=== PATIENT | female | born 1930 | race Caucasian/White ===

== ENCOUNTER 2016-12-12 18:35 | Inpatient (IN) | payer MEDICARE, OTHER ==
[2016-12-12 19:09] LABS: Bilirubin Negative (Negative); Blood, Urine Negative (Negative); Glucose, Urine (Dipstick) Negative (Negative); Ketone, Urine Negative (Negative); Nitrite Negative (Negative); Protein, Urine (Dipstick) Trace mg/dL (Neg-Trace)
[2016-12-12 19:12] LABS: Bacteria/HPF None Seen HPF (None Seen); Hyaline Casts/LPF 0-3 HYALINE CAST LPF (0-3 Hyaline); Squamous Epithelial None Seen HPF (0-3)
[2016-12-12 20:31] LABS: #Basophils 0.1 thou/uL (0.0-0.2); #Eosinphils 0.2 thou/uL (0.0-0.7); #Lymphocytes 1.9 thou/uL (1.20-3.40); #Monocytes 0.8 thou/uL (0.11-0.59); #Neutrophils 10.6 thou/uL (1.40-6.50); %Basophils 0.6 % (0.0-1.0); %Eosinophils 1.2 % (0.0-10.0); %Monocytes 5.6 % (0.0-10.0); Hematocrit 37.4 % (36.0-47.0); Mean Platelet Volume 8.2 fL (7.4-10.4); Red Blood Cell (RBC) Count 3.74 mill/uL (4.20-5.40); White Blood Cell (WBC) Count 13.5 thou/uL (4.8-10.8)
[2016-12-12] MEDS ORDERED: Azithromycin 500 MG VIAL ONE (20:39)
[2016-12-12] MEDS ORDERED: cefTRIAXone\\ROCEPHIN 1 GM VIAL ONE (20:39)
[2016-12-12] MEDS ORDERED: Sodium Chloride 0.9% 0 ML ONE (20:39)
[2016-12-12 20:47] LABS: Lactic Acid - Sepsis 1.2 mmol/L (0.5-2.2)
[2016-12-12 20:50] LABS: CK (CPK) 76 U/L (29-168); Lipase 11 U/L (8-78)
[2016-12-12 20:51] LABS: ALT (SGPT) 43 U/L (8-55); AST (SGOT) 29 U/L (5-34); Alkaline Phosphatase 113 U/L (40-150); Anion Gap 17 mmol/L (10-20); BUN (Urea Nitrogen) 12 mg/dL (9.8-20.1); Bilirubin, Total 0.5 mg/dL (0.2-1.2); Calc. Creatinine Clearance 0 mL/min (70-130); Calcium 9.5 mg/dL (7.8-10.44); Carbon Dioxide 22 mmol/L (23-31); Chloride 98 mmol/L (98-107); Estimated GFR-MDRD 70; Globulin 2.9 g/dL (2.4-3.5); Protein, Total 6.9 g/dL (6.0-8.3)
[2016-12-12 20:55] LABS: Troponin I Less than 0.010 ng/mL (< 0.028)
--- NOTE | 2016-12-12 21:56 | RAD ---
SEMIUPRIGHT PORTABLE CHEST ONE VIEW: 12/12/16 HISTORY: 86-year-old female with low grade fever for three to five days. Patient had oral surgery one week ag o. COMPARISON: 03/29/15. FINDINGS: Postoperative changes overlying the right hilar region. Right hemidiaphragm elevation. Multiple heal ed right rib fractures with some resultant deformity. Some right apical pleural thickening. Scattere d chronic lung changes appear stable. No confluent pneumonia, overt edema or pleural effusion. IMPRESSION: Stable chronic changes with postoperative changes in the right chest and right hemidiaphragm elevati on. No new process. POS: [facility]
[2016-12-13 00:10] VITALS: BMI 30.6
[2016-12-13] MEDS ORDERED: Acetaminophen 325 MG TAB PO PRN ×2 (00:49→06:38)
[2016-12-13] MEDS ORDERED: Ondansetron HCl/PF 4 MG/2 ML Vial IVP PRN ×2 (00:49→06:38)
[2016-12-13] MEDS ORDERED: Ondansetron ODT 4 MG TAB SL PRN (00:49)
[2016-12-13] MEDS ORDERED: HYDROcodone/Acetaminophen 5/325 mg Tablet PO PRN ×2 (00:49)
[2016-12-13] MEDS ORDERED: Ondansetron ODT 4 MG TAB PO PRN (06:38)
[2016-12-13] MEDS ORDERED: Benzonatate 100 MG CAP PO PRN (06:38)
[2016-12-13] MEDS ORDERED: Chloraseptic Spray 180 ml Bottle PO PRN (06:38)
[2016-12-13] MEDS ORDERED: Zolpidem Tartrate 5 MG TAB PO PRN (06:38)
[2016-12-13] MEDS ORDERED: Diabetic Tussin 200 MG/10 ML UDCUP PO PRN (06:38)
[2016-12-13] MEDS ORDERED: Mag-Al 1200 mg/1200 mg/30 ML UDCUP PO PRN (06:38)
[2016-12-13] MEDS ORDERED: Loperamide HCl 2 MG CAP PO PRN (06:38)
[2016-12-13] MEDS ORDERED: Senokot 8.6 MG TAB PO PRN (06:38)
[2016-12-13] MEDS ORDERED: Loratadine 10 MG TAB PO PRN (06:38)
[2016-12-13] MEDS ORDERED: Eucerin (Mineral Oil/Petrolatum,White) 30 gm Jar TOP PRN (06:38)
[2016-12-13] MEDS ORDERED: Sodium Chloride 0.65% Nasal 44 ML BOT EA NARE PRN (06:38)
[2016-12-13] MEDS ORDERED: Artificial Tears 18 DROP/0.9 ML EA EYE PRN (06:38)
[2016-12-13] MEDS: Losartan Potassium 25 MG TAB PO SCH (08:45)
[2016-12-13] MEDS: Cyanocobalamin (Vitamin B-12) 1,000 MCG TAB PO SCH (08:45)
[2016-12-13] MEDS: Enoxaparin Sodium 40 MG/0.4 ML SYRINGE SC SCH (08:46)
[2016-12-13] MEDS: Saccharomyces boulardii 250 MG CAP PO SCH (08:46)
[2016-12-13] MEDS: Levothyroxine Sodium 125 MCG TAB PO SCH (08:46)
[2016-12-13] MEDS ORDERED: Famotidine 20 MG TAB PO SCH (09:00)
[2016-12-13] MEDS ORDERED: [UNRECOGNIZED DRUG - OTHER] PO SCH (09:00)
[2016-12-13] MEDS ORDERED: AZILSARTAN MEDOXOMIL 80 MG PO SCH (09:00)
[2016-12-13] MEDS ORDERED: Non-Formulary Item 1 EACH (Cyanocobalamin (Vitamin B-12) [Vitamin B-12] 2,000 MCG) PO SCH (09:00)
[2016-12-13] MEDS ORDERED: Non-Formulary Item 1 EACH (Cholecalciferol (Vitamin D3) [Vitamin D] 2,000 UNIT) PO SCH (09:00)
--- NOTE | 2016-12-13 12:02 | HP ---
PRIMARY CARE PHYSICIAN: Dr. Estrada. REASON FOR ADMISSION: Acute bronchitis. HISTORY OF PRESENT ILLNESS: An 86-year-old female with a past medical history of hypertension, franc[place] nary artery disease, hypothyroidism and gastroesophageal reflux disease, who came to the emergency r o for evaluation of generalized weakness and fever. Patient reports that on Saturday, she was feeling exhausted. She was not feeling to get out of bed be cause of generalized weakness. She was also having low-grade fever. She was also having intermitte nt cough productive of sputum. The patient had oral surgery about 1 week ago. Patient denies any t ooth pain. She denies any night sweats. She denies any urinary tract infection symptoms. She vera es any constipation or diarrhea. The other main complaint was poor appetite. With these symptoms, she presented to emergency room. She was having low-grade fever. Her routine blood test showed leukocytosis. Her chest x-ray was unremarkable. In the emergency room, patient w as given Rocephin, azithromycin and IV fluid and subsequently she was admitted to medical floor for further evaluation and treatment. REVIEW OF SYSTEMS: Please see my HPI for pertinent positives and negatives. All other review of sy stems reviewed and negative except as mentioned in the HPI. Constitutional: Weight loss or gain, ability to conduct usual activities. Skin: Rash, itching. Eyes: Double vision, pain. ENT/Mouth: Nose bleeding, neck stiffness, pain, tenderness. Cardiovascular: Palpitations, dyspnea on exertion, orthopnea. Respiratory: Shortness of breath, wheezing, cough, hemoptysis, fever or night sweats. Gastrointestinal: Poor appetite, abdominal pain, heartburn, nausea, vomiting, constipation, or diar [place]. Genitourinary: Urgency, frequency, dysuria, nocturia. Musculoskeletal: Pain, swelling. Neurologic/Psychiatric: Anxiety, depression. Allergy/Immunologic: Skin rash, bleeding tendency. EMERGENCY ROOM COURSE: Patient is given Rocephin, azithromycin and IV fluid. PAST MEDICAL HISTORY: Chronic lumbar stenosis; required lumbar laminectomy in 2016, hypertension, c oronary artery disease, hypothyroidism, gastroesophageal reflux disease and history of lung cancer. PAST SURGICAL HISTORY: Bilateral knee surgery, hammertoe surgery, right carpal tunnel release. The patient required decompressive laminectomy, facetectomy, foraminectomy and microdiscectomy by Dr. Mesfin lam in 2016. Partial right lung resection, cardiac catheterization with stent placement, a bismark nt placement in kidney, appendicectomy, cholecystectomy, tonsillectomy and hysterectomy. PAST PSYCHIATRIC HISTORY: Reviewed and negative. FAMILY HISTORY: Patient's mother by the age of 75 from coronary artery disease and Parkinson d isease. Father by the age of 70 from COPD and prostate cancer. One sister from lung canc er. One brother had brain cancer and another brother had COPD. ALLERGIES: Patient is allergic to KEFLEX, TRAMADOL, FLAGYL and MILK PRODUCT. CURRENT HOME MEDICATIONS: Amlodipine 2.5 mg 2 tablets daily, amoxicillin 500 mg p.o. q.8 hourly, as pirin 81 mg p.o. daily, Edarbi 80 mg p.o. daily, Limbrel 500 mg p.o. daily, vitamin D3 2000 units p. o. daily, Celexa 20 mg p.o. daily, vitamin B12 2000 mcg p.o. daily, Bentyl 10 mg p.o. daily, Nexium 40 mg p.o. daily, Synthroid 125 mcg p.o. daily, Livalo 1 mg p.o. q.p.m. and Coenzyme Q10 100 mg p.o . at bedtime. SOCIAL HISTORY: Patient lives at home. No history of tobacco, alcohol or illicit drug abuse. PHYSICAL EXAMINATION: VITAL SIGNS: On arrival, blood pressure 154/78, pulse 83, respiratory rate 18, temperature 99.0, sa turation 98% on room air and weight 81.6 kilograms. GENERAL: Patient is currently alert and awake, in no obvious acute distress. HEAD: Normocephalic and atraumatic. EYES: Pupils are round and reactive to light. Extraocular muscle intact. ENT: Oropharynx within normal limits. Moist mucous membranes. No oral lesions. No pharyngeal hunter thema, no exudate. NECK: Supple. Range of motion is normal. No meningeal signs of irritation. LUNGS: Few end expiratory wheezing heard. No rhonchi, no rales. CARDIAC: S1 and S2 regular, soft systolic murmur present at the left sternal border. No gallop, no rub. ABDOMEN: Soft. Bowel sounds present. Nontender and nondistended. No organomegaly, no mass, no queen prapubic tenderness. BACK: Unremarkable. No CVA tenderness. EXTREMITIES: Upper extremity passive movement of all joints are normal. Lower extremity: No edema . Good peripheral pulsation. SKIN: No skin rash. HEMATOLOGICAL SYSTEM: No lymphadenopathy. PSYCHIATRIC: Normal affect. SIGNIFICANT LABS AND IMAGING DATA: EKG based on my review, normal sinus rhythm within normal limits . Chest x-ray based on my review, no acute cardiopulmonary process. CBC: WBC 13.5, hemoglobin 12.3, MCV 100 and platelets 257,000. BMP: Sodium 132, potassium 4.5, chloride 98, carbon dioxide 22, anion gap 17, BUN 12, creatinine 0. 78, glucose 122, calcium 9.5 and lactic acid 1.2. LFT: AST 29, ALT 43, alkaline phosphatase 113, albumin 4.0, lipase 11, CK 76, CK-MB 1.3, troponin I less than 0.010. Urinalysis: Leukocyte esterase trace. Blood cultures negative. Influenza A and B negative. ASSESSMENT, PLAN AND IMPRESSION: 1. Acute bronchitis. At this point, the patient has negative influenza A and B. Patient was on am oxicillin and despite that her bronchitis symptoms have not improved. She has leukocytosis. Patien t will require admission and we will continue to treat her with DuoNeb therapy every 6 hourly, Mucin ex 600 mg twice daily and empiric antibiotic therapy with levofloxacin 500 mg IV daily. 2. Generalized weakness. Suspecting from bronchitis and viral illness. At this point, I will chec k respiratory viral panel to rule out any unknown virus infection. Her Influenza A and B are negati ve. 3. Macrocytosis. We will start folic acid and vitamin B12 while in hospital. 4. Mild hyponatremia. The patient has received IV fluid while in hospital. I will continue with N S at 75 mL per hour and will repeat BMP tomorrow. 5. Murmur. We will obtain echocardiography for further evaluation. This patient has recently dent al procedure and that is why we will watch for blood culture and if the blood culture is positive, t hen patient may need transesophageal echocardiography to rule out any vegetations. We will start wi th a transthoracic echocardiography for murmur evaluation. 6. Hypertension. We will continue with Edarbi 80 mg p.o. daily and amlodipine 5 mg p.o. daily. 7. Gastroesophageal reflux disease. We will continue Protonix 40 mg p.o. daily. 8. Hypothyroidism. We will continue Synthroid 125 mcg p.o. daily. 9. Dyslipidemia. We will continue Livalo 1 mg p.o. daily. 10. Anxiety with depression. We will continue Celexa 20 mg p.o. daily. 11. Deep venous thrombosis prophylaxis. Lovenox 40 mg subcu daily. 12. Gastrointestinal prophylaxis. Protonix 40 mg p.o. daily. CODE STATUS: The patient is FULL CODE. Patient does not have any surrogate decision maker. Disposition plan based on clinical course. We are expecting patient's stay in hospital more than 2 midnights. Patient will need PT, OT evaluation as well while in hospital.
[2016-12-13] MEDS: Sodium Chloride 0.9% 1,000 ML IV SCH (12:47)
[2016-12-13] MEDS ORDERED: Non-Formulary Item 1 EACH (Amlodipine Besylate [Amlodipine Besylate] 5 MG) PO SCH (21:00)
[2016-12-13] MEDS: Ubidecarenone 50 MG CAP PO SCH (21:40)
[2016-12-13] MEDS: Simvastatin 5 MG TAB PO SCH (21:40)
[2016-12-13] MEDS: guaiFENesin ER 600 MG TAB PO SCH (21:41)
[2016-12-14] MEDS: Sodium Chloride 0.9% 1,000 ML IV SCH ×3 (01:42→14:06)
[2016-12-14 05:32] LABS: #Basophils 0.1 thou/uL (0.0-0.2); #Eosinphils 0.2 thou/uL (0.0-0.7); #Lymphocytes 2.1 thou/uL (1.20-3.40); #Monocytes 0.6 thou/uL (0.11-0.59); #Neutrophils 5.1 thou/uL (1.40-6.50); %Basophils 0.8 % (0.0-1.0); %Eosinophils 2.7 % (0.0-10.0); %Monocytes 7.3 % (0.0-10.0); Hematocrit 36.9 % (36.0-47.0); Red Blood Cell (RBC) Count 3.69 mill/uL (4.20-5.40); White Blood Cell (WBC) Count 8.1 thou/uL (4.8-10.8)
[2016-12-14 06:01] LABS: ALT (SGPT) 32 U/L (8-55); AST (SGOT) 25 U/L (5-34); Alkaline Phosphatase 91 U/L (40-150); Anion Gap 10 mmol/L (10-20); BUN (Urea Nitrogen) 8 mg/dL (9.8-20.1); Bilirubin, Total 0.4 mg/dL (0.2-1.2); Calc. Creatinine Clearance 86 mL/min (70-130); Calcium 9.8 mg/dL (7.8-10.44); Carbon Dioxide 25 mmol/L (23-31); Chloride 104 mmol/L (98-107); Estimated GFR-MDRD 90; Globulin 2.9 g/dL (2.4-3.5); Protein, Total 6.2 g/dL (6.0-8.3)
[2016-12-14] MEDS: Enoxaparin Sodium 40 MG/0.4 ML SYRINGE SC SCH (08:34)
[2016-12-14] MEDS: Cyanocobalamin (Vitamin B-12) 1,000 MCG TAB PO SCH (08:34)
[2016-12-14] MEDS: Levothyroxine Sodium 125 MCG TAB PO SCH (08:35)
[2016-12-14] MEDS: guaiFENesin ER 600 MG TAB PO SCH ×2 (08:35→20:52)
[2016-12-14] MEDS: Saccharomyces boulardii 250 MG CAP PO SCH (08:35)
[2016-12-14] MEDS: Folic Acid 1 MG TAB PO SCH (08:35)
[2016-12-14] MEDS: Losartan Potassium 25 MG TAB PO SCH (08:36)
[2016-12-14] MEDS: [UNRECOGNIZED DRUG - OTHER] PO SCH (09:45)
--- NOTE | 2016-12-14 13:35 | PDOC.PN ---
- Subjective Encounter Start Date: 12/14/16 Encounter Start Time: 10:00 -: old records requested/rev Patient seen and examined. No new complaints. No overnight events - Objective Resuscitation Status: Resuscitation Status FULL:Full Resuscitation MAR Reviewed: Yes Vital Signs & Weight: Vital Signs (12 hours) Temp Pulse Resp BP Pulse Ox 12/14/16 13:08 63 16 96 12/14/16 08:00 98.2 F 72 16 12/14/16 07:52 98.2 F 72 16 124/74 94 L 12/14/16 06:44 67 15 97 12/14/16 04:00 98.5 F 68 20 137/69 95 Weight Weight 184 lb 1 oz I&O: 12/13/16 12/14/16 12/15/16 06:59 06:59 06:59 Intake Total 600 2550 Balance 600 2550 Result Diagrams: 12/14/16 05:06 12/14/16 05:06 Phys Exam - Physical Examination Constitutional: NAD HEENT: PERRLA, moist MMs, sclera anicteric Neck: no JVD, supple Respiratory: no rales, wheezing present Cardiovascular: RRR, no rub SM+ Gastrointestinal: soft, non-tender, no distention, positive bowel sounds Musculoskeletal: no edema, pulses present Neurological: non-focal, normal sensation, moves all 4 limbs Lymphatic: no nodes Psychiatric: normal affect, A&O x 3 Skin: no rash, normal turgor Dx/Plan (1) Acute bronchitis Code(s): J20.9 - ACUTE BRONCHITIS, UNSPECIFIED Status: Acute Qualifiers: Bronchitis organism: unspecified organism Qualified Code(s): J20.9 - Acute bronchitis, unspecified (2) Hyponatremia Code(s): E87.1 - HYPO-OSMOLALITY AND HYPONATREMIA Status: Acute (3) Moderate aortic stenosis Code(s): I35.0 - NONRHEUMATIC AORTIC (VALVE) STENOSIS Status: Acute (4) Weakness generalized Code(s): R53.1 - WEAKNESS Status: Acute (5) Adenocarcinoma Code(s): C80.1 - MALIGNANT (PRIMARY) NEOPLASM, UNSPECIFIED Status: Chronic (6) Bladder incontinence Code(s): R32 - UNSPECIFIED URINARY INCONTINENCE Status: Chronic (7) CAD (coronary artery disease) Code(s): I25.10 - ATHSCL HEART DISEASE OF [place] CORONARY ARTERY W/O ANG PCTRS Status: Chronic (8) COPD (chronic obstructive pulmonary disease) Status: Chronic (9) Fibromyalgia Status: Chronic (10) Hypercholesteremia Code(s): E78.0 - PURE HYPERCHOLESTEROLEMIA * DO NOT USE * Status: Chronic (11) Hypertension Code(s): I10 - ESSENTIAL (PRIMARY) HYPERTENSION Status: Chronic (12) Hypothyroidism Code(s): E03.9 - HYPOTHYROIDISM, UNSPECIFIED Status: Chronic (13) Macrocytosis Code(s): D75.89 - OTHER SPECIFIED DISEASES OF BLOOD AND BLOOD-FORMING ORGANS Status: Chronic (14) Obesity (BMI 30.0-34.9) Code(s): E66.9 - OBESITY, UNSPECIFIED Status: Chronic (15) PVD (peripheral vascular disease) Code(s): I73.9 - PERIPHERAL VASCULAR DISEASE, UNSPECIFIED Status: Chronic - Plan cont current plan of care, continue antibiotics * continue levaquin * medication reviewed as below * symptomatic treatment * continue PT * follow culture * if culture negative, then consider discharge over weekend. Review of Systems - Review of Systems ENT: negative: Ear Pain, Ear Discharge, Nose Pain, Nose Discharge, Nose Congestion, Mouth Pain, Mouth Swelling, Throat Pain, Throat Swelling, Other Respiratory: negative: Cough, Dry, Shortness of Breath, Hemoptysis, SOB with Excertion, Pleuritic Pain, Sputum, Wheezing Cardiovascular: negative: Chest Pain, Palpitations, Orthopnea, Paroxysmal Noc. Dyspnea, Edema, Light Headedness, Other Gastrointestinal: negative: Nausea, Vomiting, Abdominal Pain, Diarrhea, Constipation, Melena, Hematochezia, Other Genitourinary: negative: Dysuria, Frequency, Incontinence, Hematuria, Retention , Other Musculoskeletal: negative: Neck Pain, Shoulder Pain, Arm Pain, Back Pain, Hand Pain, Leg Pain, Foot Pain, Other - Medications/Allergies Allergies/Adverse Reactions: Allergies Allergy/AdvReac Type Severity Reaction Status Date / Time metronidazole [From Flagyl] Allergy Verified 12/13/16 00:09 Milk Containing Products Allergy Verified 12/13/16 00:09 cephalexin monohydrate AdvReac Intermediate NAUSEA/ Verified 12/13/16 00:09 [From Keflex] tramadol AdvReac Intermediate NAUSEA/VOMI Verified 12/13/16 00:09 TING Medications: Current Medications Acetaminophen (Tylenol) 650 mg PO Q4H PRN PRN Reason: Headache/Fever or Mild Pain Last Admin: 12/13/16 13:23 Dose: 650 mg Al Hydroxide/Mg Hydroxide (Maalox) 30 ml PO Q6H PRN PRN Reason: Heartburn or Indigestion Albuterol/Ipratropium (Duoneb) 3 ml NEB [id number] Last Admin: 12/14/16 13:08 Dose: 3 ml Amlodipine Besylate (Norvasc) 5 mg PO QPM [facility] Last Admin: 12/13/16 21:40 Dose: 5 mg Artificial Tears (Tears Naturale) 0 drop EA EYE PRN PRN PRN Reason: Dry Eyes Aspirin (Aspirin Chewable) 81 mg PO DAILY [facility] Last Admin: 12/14/16 08:35 Dose: 81 mg Benzonatate (Tessalon) 100 mg PO Q4H PRN PRN Reason: Cough Cholecalciferol (Vitamin D3) 2,000 units PO DAILY [facility] Last Admin: 12/14/16 08:34 Dose: 2,000 units Citalopram Hydrobromide (Celexa) 20 mg PO QPM [facility] Last Admin: 12/13/16 21:41 Dose: 20 mg Coenzyme Q10 (Coenzyme Q10) 100 mg PO HS [facility] Last Admin: 12/13/16 21:40 Dose: 100 mg Cyanocobalamin (Vitamin B-12) 2,000 mcg PO DAILY [facility] Last Admin: 12/14/16 08:34 Dose: 2,000 mcg Dicyclomine HCl (Bentyl) 10 mg PO DAILY [facility] Last Admin: 12/14/16 08:35 Dose: 10 mg Enoxaparin Sodium (Lovenox) 40 mg SC 0900 [facility] Last Admin: 12/14/16 08:34 Dose: 40 mg Folic Acid (Folvite) 1 mg PO DAILY [facility] Last Admin: 12/14/16 08:35 Dose: 1 mg Guaifenesin (Robitussin Sf) 200 mg PO Q4H PRN PRN Reason: Cough Guaifenesin (Mucinex) 600 mg PO Q12HR [facility] Last Admin: 12/14/16 08:35 Dose: 600 mg Hydralazine HCl (Apresoline) 10 mg SLOW IVP Q4H PRN PRN Reason: Systolic BP > 180 Levofloxacin 500 mg/ Device 100 mls @ 100 mls/hr IVPB Q24HR [facility] Last Admin: 12/14/16 08:36 Dose: 100 mls Sodium Chloride (Normal Saline 0.9%) 1,000 mls @ 75 mls/hr IV .[id number] [facility] Last Admin: 12/14/16 10:54 Dose: 1,000 mls Levothyroxine Sodium (Synthroid) 125 mcg PO 0600 [facility]ONE Loperamide HCl (Imodium) 2 mg PO PRN PRN PRN Reason: Diarrhea/Loose Stools Loratadine (Claritin) 10 mg PO DAILYPRN PRN PRN Reason: Sinus Symptoms Losartan Potassium (Cozaar) 150 mg PO DAILY [facility] Last Admin: 12/14/16 08:36 Dose: 150 mg Mineral Oil/White Petrolatum (Eucerin Cream) 0 gm TOP BIDPRN PRN PRN Reason: Dry Skin Ondansetron HCl (Zofran Odt) 4 mg PO Q6H PRN PRN Reason: Nausea/Vomiting Ondansetron HCl (Zofran) 4 mg IVP Q6H PRN PRN Reason: Nausea/Vomiting Pantoprazole Sodium (Protonix) 40 mg PO DAILY [facility] Last Admin: 12/14/16 08:35 Dose: 40 mg Phenol (Chloraseptic [place] 180 Ml Bot) 0 ml PO PRN PRN PRN Reason: Sore Throat Saccharomyces Boulardii (Florastor) 250 mg PO DAILY [facility] Last Admin: 12/14/16 08:35 Dose: 250 mg Senna (Senokot) 2 tab PO HSPRN PRN PRN Reason: Constipation Simvastatin (Zocor) 10 mg PO HS [facility] Last Admin: 12/13/16 21:40 Dose: 10 mg Sodium Chloride ([place] Nasal [place] 0.65%) 0 ml EA NARE QIDPRN PRN PRN Reason: Nasal Congestion Sodium Chloride (Flush - Normal Saline) 10 ml IVF Q12HR [facility] Sodium Chloride (Flush - Normal Saline) 10 ml IVF PRN PRN PRN Reason: Saline Flush Zolpidem Tartrate (Ambien) 5 mg PO HSPRN PRN PRN Reason: Insomnia
[2016-12-14] MEDS: Simvastatin 5 MG TAB PO SCH (20:51)
[2016-12-14] MEDS: Ubidecarenone 50 MG CAP PO SCH (20:51)
[2016-12-15] MEDS: Sodium Chloride 0.9% 1,000 ML IV SCH ×2 (05:09→19:26)
[2016-12-15] MEDS: Levothyroxine Sodium 125 MCG TAB PO SCH (05:09)
[2016-12-15] MEDS: Losartan Potassium 25 MG TAB PO SCH (08:18)
[2016-12-15] MEDS: guaiFENesin ER 600 MG TAB PO SCH ×2 (08:19→20:28)
[2016-12-15] MEDS: Folic Acid 1 MG TAB PO SCH (08:19)
[2016-12-15] MEDS: Saccharomyces boulardii 250 MG CAP PO SCH (08:19)
[2016-12-15] MEDS: Cyanocobalamin (Vitamin B-12) 1,000 MCG TAB PO SCH (08:19)
[2016-12-15] MEDS: Enoxaparin Sodium 40 MG/0.4 ML SYRINGE SC SCH (08:20)
--- NOTE | 2016-12-15 14:00 | PDOC.PN ---
- Subjective Encounter Start Date: 12/15/16 Encounter Start Time: 12:25 Subjective: feels better -: is sitting in chair - Objective Resuscitation Status: Resuscitation Status FULL:Full Resuscitation MAR Reviewed: Yes Vital Signs & Weight: Vital Signs (12 hours) Temp Pulse Resp BP Pulse Ox 12/15/16 08:00 98.2 F 79 16 12/15/16 07:40 79 16 92 L 12/15/16 07:11 98.2 F 75 16 151/66 H 94 L Weight Weight 184 lb 1 oz I&O: 12/14/16 12/15/16 12/16/16 06:59 06:59 06:59 Intake Total 2550 1725 Balance 2550 1725 Result Diagrams: 12/14/16 05:06 12/14/16 05:06 Phys Exam - Physical Examination HEENT: PERRLA, moist MMs Neck: no JVD, supple Respiratory: no wheezing, no rales Cardiovascular: RRR, no significant murmur Gastrointestinal: soft, non-tender, positive bowel sounds Musculoskeletal: no edema, pulses present Neurological: non-focal, moves all 4 limbs Psychiatric: A&O x 3 Dx/Plan (1) Acute bronchitis Code(s): J20.9 - ACUTE BRONCHITIS, UNSPECIFIED Status: Acute Qualifiers: Bronchitis organism: unspecified organism Qualified Code(s): J20.9 - Acute bronchitis, unspecified (2) Moderate aortic stenosis Code(s): I35.0 - NONRHEUMATIC AORTIC (VALVE) STENOSIS Status: Chronic (3) Adenocarcinoma Code(s): C80.1 - MALIGNANT (PRIMARY) NEOPLASM, UNSPECIFIED Status: Chronic Comment: in remission, diagnosed in 1999 with lobectomy done on right side (4) CAD (coronary artery disease) Code(s): I25.10 - ATHSCL HEART DISEASE OF [place] CORONARY ARTERY W/O ANG PCTRS Status: Chronic Qualifiers: Coronary Disease-Associated Artery/Lesion type: [place] artery [place] vs. transplanted heart: [place] heart Associated angina: without angina Qualified Code(s): I25.10 - Atherosclerotic heart disease of [place] coronary artery without angina pectoris (5) COPD (chronic obstructive pulmonary disease) Status: Chronic Qualifiers: COPD type: chronic bronchitis (6) Hypertension Code(s): I10 - ESSENTIAL (PRIMARY) HYPERTENSION Status: Chronic Qualifiers: Hypertension type: essential hypertension Qualified Code(s): I10 - Essential (primary) hypertension (7) Hypothyroidism Code(s): E03.9 - HYPOTHYROIDISM, UNSPECIFIED Status: Chronic Qualifiers: Hypothyroidism type: unspecified Qualified Code(s): E03.9 - Hypothyroidism , unspecified (8) Obesity (BMI 30.0-34.9) Code(s): E66.9 - OBESITY, UNSPECIFIED Status: Chronic (9) PVD (peripheral vascular disease) Code(s): I73.9 - PERIPHERAL VASCULAR DISEASE, UNSPECIFIED Status: Chronic - Plan is on levaquin -: dc iv fluids -: blood cs and viral pcr are -ve -: dc plan in am * . Review of Systems - Medications/Allergies Allergies/Adverse Reactions: Allergies Allergy/AdvReac Type Severity Reaction Status Date / Time metronidazole [From Flagyl] Allergy Verified 12/13/16 00:09 Milk Containing Products Allergy Verified 12/13/16 00:09 cephalexin monohydrate AdvReac Intermediate NAUSEA/ Verified 12/13/16 00:09 [From Keflex] tramadol AdvReac Intermediate NAUSEA/VOMI Verified 12/13/16 00:09 TING Medications: Current Medications Acetaminophen (Tylenol) 650 mg PO Q4H PRN PRN Reason: Headache/Fever or Mild Pain Last Admin: 12/13/16 13:23 Dose: 650 mg Al Hydroxide/Mg Hydroxide (Maalox) 30 ml PO Q6H PRN PRN Reason: Heartburn or Indigestion Albuterol/Ipratropium (Duoneb) 3 ml NEB [id number] [facility] Last Admin: 12/15/16 07:40 Dose: 3 ml Amlodipine Besylate (Norvasc) 5 mg PO QPM [facility] Last Admin: 12/14/16 20:51 Dose: 5 mg Artificial Tears (Tears Naturale) 0 drop EA EYE PRN PRN PRN Reason: Dry Eyes Aspirin (Aspirin Chewable) 81 mg PO DAILY [facility] Last Admin: 12/15/16 08:19 Dose: 81 mg Benzonatate (Tessalon) 100 mg PO Q4H PRN PRN Reason: Cough Cholecalciferol (Vitamin D3) 2,000 units PO DAILY [facility] Last Admin: 12/15/16 08:18 Dose: 2,000 units Citalopram Hydrobromide (Celexa) 20 mg PO QPM [facility] Last Admin: 12/14/16 20:51 Dose: 20 mg Coenzyme Q10 (Coenzyme Q10) 100 mg PO HS [facility] Last Admin: 12/14/16 20:51 Dose: 100 mg Cyanocobalamin (Vitamin B-12) 2,000 mcg PO DAILY [facility] Last Admin: 12/15/16 08:19 Dose: 2,000 mcg Dicyclomine HCl (Bentyl) 10 mg PO DAILY [facility] Last Admin: 12/15/16 08:19 Dose: 10 mg Enoxaparin Sodium (Lovenox) 40 mg SC 0900 [facility] Last Admin: 12/15/16 08:20 Dose: 40 mg Folic Acid (Folvite) 1 mg PO DAILY [facility] Last Admin: 12/15/16 08:19 Dose: 1 mg Guaifenesin (Robitussin Sf) 200 mg PO Q4H PRN PRN Reason: Cough Guaifenesin (Mucinex) 600 mg PO Q12HR [facility] Last Admin: 12/15/16 08:19 Dose: 600 mg Hydralazine HCl (Apresoline) 10 mg SLOW IVP Q4H PRN PRN Reason: Systolic BP > 180 Levofloxacin 500 mg/ Device 100 mls @ 100 mls/hr IVPB Q24HR [facility] Last Admin: 12/15/16 08:13 Dose: 100 mls Sodium Chloride (Normal Saline 0.9%) 1,000 mls @ 75 mls/hr IV .[id number] [facility] Last Admin: 12/15/16 05:09 Dose: 1,000 mls Levothyroxine Sodium (Synthroid) 125 mcg PO 0600 [facility] Last Admin: 12/15/16 05:09 Dose: 125 mcg Loperamide HCl (Imodium) 2 mg PO PRN PRN PRN Reason: Diarrhea/Loose Stools Loratadine (Claritin) 10 mg PO DAILYPRN PRN PRN Reason: Sinus Symptoms Losartan Potassium (Cozaar) 150 mg PO DAILY [facility] Last Admin: 12/15/16 08:18 Dose: 150 mg Mineral Oil/White Petrolatum (Eucerin Cream) 0 gm TOP BIDPRN PRN PRN Reason: Dry Skin Ondansetron HCl (Zofran Odt) 4 mg PO Q6H PRN PRN Reason: Nausea/Vomiting Ondansetron HCl (Zofran) 4 mg IVP Q6H PRN PRN Reason: Nausea/Vomiting Pantoprazole Sodium (Protonix) 40 mg PO DAILY [facility] Last Admin: 12/15/16 08:19 Dose: 40 mg Phenol (Chloraseptic [place] 180 Ml Bot) 0 ml PO PRN PRN PRN Reason: Sore Throat Saccharomyces Boulardii (Florastor) 250 mg PO DAILY [facility] Last Admin: 12/15/16 08:19 Dose: 250 mg Senna (Senokot) 2 tab PO HSPRN PRN PRN Reason: Constipation Simvastatin (Zocor) 10 mg PO HS [facility] Last Admin: 12/14/16 20:51 Dose: 10 mg Sodium Chloride ([place] Nasal [place] 0.65%) 0 ml EA NARE QIDPRN PRN PRN Reason: Nasal Congestion Sodium Chloride (Flush - Normal Saline) 10 ml IVF Q12HR [facility] Last Admin: 12/15/16 08:20 Dose: Not Given Sodium Chloride (Flush - Normal Saline) 10 ml IVF PRN PRN PRN Reason: Saline Flush Zolpidem Tartrate (Ambien) 5 mg PO HSPRN PRN PRN Reason: Insomnia
[2016-12-15] MEDS: Simvastatin 5 MG TAB PO SCH (20:28)
[2016-12-15] MEDS: Ubidecarenone 50 MG CAP PO SCH (20:28)
[2016-12-16 04:36] LABS: #Eosinphils 0.2 thou/uL (0.0-0.7); #Lymphocytes 2.1 thou/uL (1.20-3.40); #Monocytes 0.6 thou/uL (0.11-0.59); #Neutrophils 4.6 thou/uL (1.40-6.50); %Basophils 0.5 % (0.0-1.0); %Eosinophils 2.5 % (0.0-10.0); %Lymphocytes 28.3 % (21.0-51.0); %Monocytes 7.4 % (0.0-10.0); Hematocrit 34.3 % (36.0-47.0); Mean Platelet Volume 7.9 fL (7.4-10.4); Red Blood Cell (RBC) Count 3.45 mill/uL (4.20-5.40); White Blood Cell (WBC) Count 7.6 thou/uL (4.8-10.8)
[2016-12-16 04:57] LABS: Anion Gap 10 mmol/L (10-20); BUN (Urea Nitrogen) 6 mg/dL (9.8-20.1); Calc. Creatinine Clearance 85 mL/min (70-130); Calcium 9.8 mg/dL (7.8-10.44); Carbon Dioxide 27 mmol/L (23-31); Chloride 103 mmol/L (98-107); Estimated GFR-MDRD 88
[2016-12-16] MEDS: Levothyroxine Sodium 125 MCG TAB PO SCH (06:30)
[2016-12-16 07:49] VITALS: BP 132/76; TEMP 98.2
[2016-12-16] MEDS: Losartan Potassium 25 MG TAB PO SCH (08:46)
[2016-12-16] MEDS: Cyanocobalamin (Vitamin B-12) 1,000 MCG TAB PO SCH (08:47)
[2016-12-16] MEDS: Folic Acid 1 MG TAB PO SCH (08:47)
[2016-12-16] MEDS: Saccharomyces boulardii 250 MG CAP PO SCH (08:48)
[2016-12-16] MEDS: Enoxaparin Sodium 40 MG/0.4 ML SYRINGE SC SCH (08:48)
[2016-12-16] MEDS: guaiFENesin ER 600 MG TAB PO SCH (08:48)
[2016-12-16] MEDS: Sodium Chloride 0.9% 1,000 ML IV SCH (10:23)
--- NOTE | 2016-12-16 14:49 | PDOC.PN ---
- Subjective Encounter Start Date: 12/16/16 Encounter Start Time: 07:30 Subjective: feels better -: no chills or rigors or fever - Objective Resuscitation Status: Resuscitation Status FULL:Full Resuscitation MAR Reviewed: Yes Vital Signs & Weight: Vital Signs (12 hours) Temp Pulse Resp BP Pulse Ox 12/16/16 08:00 98.2 F 65 18 12/16/16 07:49 98.2 F 65 18 132/76 94 L 12/16/16 07:22 94 L 12/16/16 07:20 86 16 94 L 12/16/16 04:00 97.8 F 69 16 154/74 H 96 Weight Weight 184 lb 1 oz I&O: 12/15/16 12/16/16 12/17/16 06:59 06:59 06:59 Intake Total 1725 1426 Balance 1725 1426 Result Diagrams: 12/16/16 03:47 12/16/16 03:47 Phys Exam - Physical Examination HEENT: PERRLA, moist MMs Neck: no JVD, supple Respiratory: no wheezing, no rales Cardiovascular: RRR, no significant murmur Gastrointestinal: soft, non-tender, positive bowel sounds Musculoskeletal: no edema, pulses present Neurological: non-focal, moves all 4 limbs Psychiatric: A&O x 3 Dx/Plan (1) Acute bronchitis Code(s): J20.9 - ACUTE BRONCHITIS, UNSPECIFIED Status: Acute Qualifiers: Bronchitis organism: unspecified organism Qualified Code(s): J20.9 - Acute bronchitis, unspecified (2) Moderate aortic stenosis Code(s): I35.0 - NONRHEUMATIC AORTIC (VALVE) STENOSIS Status: Chronic (3) Adenocarcinoma Code(s): C80.1 - MALIGNANT (PRIMARY) NEOPLASM, UNSPECIFIED Status: Chronic Comment: in remission, diagnosed in 1999 with lobectomy done on right side (4) CAD (coronary artery disease) Code(s): I25.10 - ATHSCL HEART DISEASE OF [place] CORONARY ARTERY W/O ANG PCTRS Status: Chronic Qualifiers: Coronary Disease-Associated Artery/Lesion type: [place] artery [place] vs. transplanted heart: [place] heart Associated angina: without angina Qualified Code(s): I25.10 - Atherosclerotic heart disease of [place] coronary artery without angina pectoris (5) COPD (chronic obstructive pulmonary disease) Status: Chronic Qualifiers: COPD type: chronic bronchitis (6) Hypertension Code(s): I10 - ESSENTIAL (PRIMARY) HYPERTENSION Status: Chronic Qualifiers: Hypertension type: essential hypertension Qualified Code(s): I10 - Essential (primary) hypertension (7) Hypothyroidism Code(s): E03.9 - HYPOTHYROIDISM, UNSPECIFIED Status: Chronic Qualifiers: Hypothyroidism type: unspecified Qualified Code(s): E03.9 - Hypothyroidism , unspecified (8) Obesity (BMI 30.0-34.9) Code(s): E66.9 - OBESITY, UNSPECIFIED Status: Chronic (9) PVD (peripheral vascular disease) Code(s): I73.9 - PERIPHERAL VASCULAR DISEASE, UNSPECIFIED Status: Chronic - Plan hemostable -: christianson cultures are -ve -: dc pt home -: wbc down to 7.6 from 13k -: d/w patient and daughter in law at bedside * .
--- NOTE | 2016-12-16 17:58 | DIS ---
DATE OF ADMISSION: 12/13/2016 DATE OF DISCHARGE: 12/16/2016 DISCHARGE DISPOSITION: To home. PRIMARY DISCHARGE DIAGNOSIS: Acute bronchitis, resolved. 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 PROCEDURES DONE DURING HOSPITALIZATION: Echo with 2D Doppler done showed an EF of 55%-60%, there wa s moderate aortic stenosis. Chest x-ray done on the day of admission showed postoperative stable ch anges in the right chest. No new process was seen. Blood cultures x2 no growth. Urine culture no growth. Respiratory virus panel, PCR was negative. DISCHARGE MEDICATIONS: Norvasc 5 mg p.o. q.p.m., aspirin 81 mg p.o. daily, Edarbi 80 mg p.o. daily, Limbrel 500 mg p.o. daily, vitamin D3 2000 units p.o. daily, citalopram 20 mg p.o. q.p.m., vitamin B12 2000 mcg p.o. daily, Bentyl p.r.n. for pain, Nexium 40 mg p.o. daily, Levaquin 500 mg p.o. daily for another 5 days, levothyroxine 125 mcg p.o. daily, Livalo 1 mg p.o. q.p.m., CoQ10 100 mg p.o. at bedtime. ALLERGIES: Allergic to METRONIDAZOLE, KEFLEX, ULTRAM, and MILK CONTAINING PRODUCTS. DISCHARGE PLAN: Patient to follow up with primary care physician in 1 week. BRIEF COURSE DURING HOSPITALIZATION: Patient initially came to ER with complaints of generalized we akness and fever. She felt very exhausted and was not feeling like getting out of her bed. She had a low grade fever at home. Had a temperature of 99 degrees on arrival. In view of multiple comorb id conditions, patient was admitted to medical floor. Taylor cultures were obtained and have not grown any organism. Her viral PCR was negative as well. The patient was on IV antibiotics. Her initial white count was 13, which has come down to 7.6 at the time of discharge. She has remained hemodyna mically stable and will be shortly discharged home. The patient needs to follow up with her primary care physician in 1 week. Please see a face to face documentation on [facility] for the day of disch arge.
== END 2016-12-16 11:58 | DRG 202 ==
LOC: ERS 18:35 → T4-B 22:06
PROVIDERS: ADMIT Internal Medicine; ATTEND Internal Medicine
DX: J20.9 Acute bronchitis, unspecified (principal); J44.0 Chronic obstructive pulmonary disease with (acute) lower respiratory infection; D75.89 Other specified diseases of blood and blood-forming organs; E87.1 Hypo-osmolality and hyponatremia; I35.0 Nonrheumatic aortic (valve) stenosis; I25.10 Atherosclerotic heart disease of native coronary artery without angina pectoris; Z90.2 Acquired absence of lung [part of]; Z85.118 Personal history of other malignant neoplasm of bronchus and lung; I10 Essential (primary) hypertension; E66.9 Obesity, unspecified; Z68.30 Body mass index [BMI] 30.0-30.9, adult; E03.9 Hypothyroidism, unspecified; I73.9 Peripheral vascular disease, unspecified; K21.9 Gastro-esophageal reflux disease without esophagitis; R01.1 Cardiac murmur, unspecified; F41.8 Other specified anxiety disorders; Z98.818 Other dental procedure status; M79.7 Fibromyalgia; R32 Unspecified urinary incontinence; E78.00 Pure hypercholesterolemia, unspecified; R09.02 Hypoxemia
CPT/HCPCS: 36415; 71010; 80048; 80053; 81003; 81015; 82553; 83605; 83690; 84484; 85025; 87040; 87086; 87633; 93005; 93306; 94640; 96361; 96365; 96367; A4216; G8978-GP-CI; G8979-GP-CJ; G8980-GP-CI; J0456; J0696; J1650; J1956; J7050; J7620

== ENCOUNTER 2018-07-03 00:15 | Outpatient (CLI) | payer MEDICARE ==
[2018-07-03 14:22] LABS: Bilirubin Negative (Negative); Blood, Urine Negative (Negative); Clarity CLEAR (Clear); Glucose, Urine (Dipstick) Negative (Negative); Leukocyte Negative (Negative); Nitrite Negative (Negative); Protein, Urine (Dipstick) Negative (Neg-Trace); Specific Gravity, Urine 1.008 (1.002-1.036); Urobilinogen 0.2 mg/dL (0.2-1.0)
[2018-07-03 14:24] LABS: Bacteria/HPF None Seen HPF (None Seen); Hyaline Casts/LPF 0-3 HYALINE CAST LPF (0-3 Hyaline); RBC/HPF 0-3 HPF (0-3); Squamous Epithelial None Seen HPF (0-3); WBC/HPF 0-3 HPF (0-3)
[2018-07-03 14:25] LABS: #Basophils 0.1 thou/uL (0.0-0.2); #Eosinphils 0.1 thou/uL (0.0-0.7); #Lymphocytes 3.5 thou/uL (1.20-3.40); #Monocytes 0.5 thou/uL (0.11-0.59); #Neutrophils 5.5 thou/uL (1.40-6.50); %Basophils 0.9 % (0.0-1.0); %Eosinophils 1.3 % (0.0-10.0); %Lymphocytes 36.1 % (21.0-51.0); %Monocytes 4.8 % (0.0-10.0); %Neutrophils 56.9 % (42.0-75.0); Hemoglobin 13.1 g/dL (12.0-16.0); Mean Corpuscular HGB CONC 32.8 g/dL (32.0-36.0); Mean Corpuscular Hemoglobin 32.6 pg (27.0-31.0); Mean Corpuscular Volume 99.5 fL (78.0-98.0); Mean Platelet Volume 9.5 fL (7.4-10.4); Platelet Count 241 thou/uL (130-400); RBC Distribution Width 11.4 % (11.5-14.5); Red Blood Cell (RBC) Count 4.02 mill/uL (4.20-5.40); White Blood Cell (WBC) Count 9.7 thou/uL (4.8-10.8)
[2018-07-03 14:32] LABS: PTT 27.3 SEC (22.9-36.1); Prothrombin Time 13.3 SEC (12.0-14.7)
--- NOTE | 2018-07-03 14:33 | RAD ---
EXAM: Two views chest PROVIDED CLINICAL HISTORY: Preoperative evaluation COMPARISON: 12/12/2016 FINDINGS: Cardiac silhouette and pulmonary vasculature are within normal limits. Surgical clips are again seen overlying the right hilar region. Linear scarring in the right lung is again seen with evidence of remote right-sided rib fractures. There is stable elevation of the right hemidiaphragm. The left lung is clear. No consolidation or pleural fluid is seen. Mild degenerative changes are seen in the spine. There is resorption of the distal right clavicle which is a stable finding and may be related to prior injury. Vascular calcifications are seen in the thoracic aorta. IMPRESSION: Postsurgical changes as well as chronic lung changes involving the right hemithorax. No acute cardiop ulmonary process is identified..
[2018-07-03 14:39] LABS: Anion Gap 12 mmol/L (10-20); BUN (Urea Nitrogen) 16 mg/dL (9.8-20.1); Calc. Creatinine Clearance 0 mL/min (70-130); Calcium 10.4 mg/dL (7.8-10.44); Carbon Dioxide 27 mmol/L (23-31); Chloride 101 mmol/L (98-107); Estimated GFR-MDRD 75; Glucose 95 mg/dL (83-110); Potassium 4.3 mmol/L (3.5-5.1); Sodium 136 mmol/L (136-145)
--- NOTE | 2018-07-04 07:26 | EKG ---
Test Reason : Blood Pressure : / mmHG Vent. Rate : 070 BPM Atrial Rate : 070 BPM P-R Int : 232 ms QRS Dur : 084 ms QT Int : 410 ms P-R-T Axes : 059 045 077 degrees QTc Int : 442 ms Sinus rhythm with 1st degree A-V block / Cannot rule out Anterior infarct , age undetermined Abnormal ECG When compared with ECG of 12-DEC-2016 20:02, LA interval has increased Confirmed by MICHAEL MUNSON ([id number]) on 07/04/2018 7:25:40 AM Referred By: CALISTA Confirmed By:MICHAEL MUNSON
== END 2018-07-03 00:16 | disposition home or self-care (01) ==
LOC: LABBT 00:15
PROVIDERS: ATTEND Orthopaedic Surgery
DX: Z01.818 Encounter for other preprocedural examination (principal); M17.12 Unilateral primary osteoarthritis, left knee; J98.4 Other disorders of lung; Z98.890 Other specified postprocedural states
CPT/HCPCS: 71046; 80048; 81001; 85025; 85610; 85730; 87081; 93005; 93010

== ENCOUNTER 2018-07-08 09:30 | Observation (INO) | payer MEDICARE ==
[2018-07-08 10:26] LABS: #Basophils 0.1 thou/uL (0.0-0.2); #Lymphocytes 1.8 thou/uL (1.20-3.40); #Monocytes 0.4 thou/uL (0.11-0.59); #Neutrophils 4.2 thou/uL (1.40-6.50); %Eosinophils 0.8 % (0.0-10.0); %Lymphocytes 27.1 % (21.0-51.0); %Monocytes 5.9 % (0.0-10.0); %Neutrophils 65.2 % (42.0-75.0); Hemoglobin 12.7 g/dL (12.0-16.0); Mean Corpuscular HGB CONC 30.8 g/dL (32.0-36.0); Mean Corpuscular Hemoglobin 30.2 pg (27.0-31.0); Mean Corpuscular Volume 98.3 fL (78.0-98.0); Platelet Count 251 thou/uL (130-400); RBC Distribution Width 11.4 % (11.5-14.5); Red Blood Cell (RBC) Count 4.21 mill/uL (4.20-5.40); White Blood Cell (WBC) Count 6.5 thou/uL (4.8-10.8)
--- NOTE | 2018-07-08 10:26 | RAD ---
XR Chest 1 View Portable History: [Chest pain] Comparison: Chest radiograph July 03, 2018 Findings: Old right-sided rib fractures. Mild elevation right hemidiaphragm. Scarring right lower lob e. Left lung is clear. Multiple surgical clips projecting over the mediastinum. Impression: Chronic findings. No acute intrathoracic abnormality.
[2018-07-08] MEDS ORDERED: Aspirin Chewable 81 MG TAB ONE (10:47)
[2018-07-08 10:49] LABS: ALT (SGPT) 11 U/L (8-55); AST (SGOT) 13 U/L (5-34); Albumin 4.2 g/dL (3.4-4.8); Alkaline Phosphatase 67 U/L (40-150); Anion Gap 18 mmol/L (10-20); BUN (Urea Nitrogen) 16 mg/dL (9.8-20.1); Bilirubin, Total 0.4 mg/dL (0.2-1.2); Calc. Creatinine Clearance 0 mL/min (70-130); Calcium 10.1 mg/dL (7.8-10.44); Carbon Dioxide 20 mmol/L (23-31); Chloride 104 mmol/L (98-107); Estimated GFR-MDRD 75; Globulin 2.4 g/dL (2.4-3.5); Glucose 111 mg/dL (83-110); Lipase 18 U/L (8-78); Potassium 4.9 mmol/L (3.5-5.1); Protein, Total 6.6 g/dL (6.0-8.3); Sodium 137 mmol/L (136-145)
[2018-07-08] MEDS ORDERED: Acetaminophen 325 MG TAB PO PRN (11:42)
[2018-07-08] MEDS ORDERED: Benzonatate 100 MG CAP PO PRN (11:42)
[2018-07-08] MEDS ORDERED: hydrALAZINE 20 MG/ML VIAL SLOW IVP PRN (11:42)
[2018-07-08] MEDS ORDERED: Diabetic Tussin 200 MG/10 ML UDCUP PO PRN (11:42)
[2018-07-08] MEDS ORDERED: cloNIDine 0.1 MG TAB PO PRN (11:42)
[2018-07-08] MEDS ORDERED: Bisacodyl 5 MG TAB PO PRN ×2 (11:42)
[2018-07-08] MEDS ORDERED: Nitroglycerin 0.4 MG TAB (25 Tab Bottle) SL PRN (11:42)
[2018-07-08] MEDS ORDERED: Ondansetron PF 4 MG/2 ML Vial IVP PRN ×2 (11:42)
[2018-07-08] MEDS ORDERED: Senokot S 8.6-50 MG TAB PO PRN ×2 (11:42)
[2018-07-08] MEDS ORDERED: Calcium Carbonate 500 MG ChewTAB PO PRN (11:42)
[2018-07-08] MEDS ORDERED: Amlodipine 5 MG TAB PO SCH (12:45)
[2018-07-08 13:01] LABS: Cardiac Risk 3.5 (Less than 4.5)
--- NOTE | 2018-07-08 13:13 | HP ---
PRIMARY CARE PHYSICIAN: Zkaia Estrada MD. CHIEF COMPLAINT: Chest pain. HISTORY OF PRESENT ILLNESS: Ms. Goodson is a pleasant 88-year-old female with known past medical history of coronary artery disease as well as hypertension and history of lung cancer, who presented to the emergency room with above-mentioned complaint. History is mainly obtained by the patient herself and electronic medical records have been reviewed. Case has been discussed with admitting ER physician. The patient was last admitted to our facility in 2016, when she was diagnosed with having moderate aortic stenosis by an echocardiogram done at that time. She follows up with Dr. Jenkins at [facility] for now. She does not know the diagnosis of aortic stenosis. She is scheduled to undergo knee replacement on July [address] Wesley. She reports that she was recently seen by Dr. Jenkins for preop clearance and cardiac clearance was provided. She reports that she has been under a lot of stress lately. She woke up this morning and had 1 or 2 episodes of sharp chest pain starting from the substernal area, going under her left breast. These were short lasting. She cannot recall any exacerbating or relieving factors. She describes it as a sharp stabbing sensation lasting for 4 to 5 seconds each. It was not associated with any nausea, vomiting, dizziness, palpitation, diaphoresis, or shortness of breath. She did not have any radiation to the pain. She denies any recent illnesses. She denies any edema. She denies any shortness of breath, lightheadedness, weakness, lethargic, or weight loss. She has no nausea, vomiting, diarrhea, or abdominal pain. No dysuria, frequency, or urgency. Upon presentation to the emergency room, her blood pressure was elevated to 166/70, but she was otherwise hemodynamically stable. En route in ambulance, her oxygen saturation was 97%. The EKG done in the emergency room showed normal sinus rhythm with normal ST segments and normal T-waves. Cardiac enzymes were checked and troponin was within normal limits. Rest of her workup included chest x-ray, CBC, and CMP, which were also unremarkable. Because of her history of coronary artery disease: She is now being admitted to rule out ACS. PAST MEDICAL HISTORY: 1. Lumbar stenosis, status post laminectomy in 2016. 2. Hypertension. 3. Coronary artery disease. 4. Hypothyroidism. 5. GERD. 6. History of lung cancer. PAST SURGICAL HISTORY: 1. Lumbar laminectomy. 2. Bilateral knee surgery. 3. Hammertoe surgery. 4. Right carpal tunnel release. FAMILY HISTORY: Mother at the age of 75 and had coronary artery disease and Parkinson's. Father in his 70s and had COPD and prostate cancer. One of the patient's sister of lung cancer. One of her brothers of brain cancer. The other brother had COPD. SOCIAL HISTORY: She lives by herself and has no history of drug, tobacco, or alcohol abuse. Her daughter, Ms. Aquino, is her surrogate decision maker. ALLERGIES: KEFLEX, TRAMADOL, FLAGYL, AND MILK PRODUCTS WELL BACITRACIN, NEOMYCIN, POLYMYXIN, AND CEPHALEXIN. HOME MEDICATIONS: As listed in the ER records; 1. Thyroid supplement 125 mcg daily. 2. Nexium 40 mg daily. 3. Edarbi 40 mg daily. 4. Vitamin B12 1000 mcg daily. 5. Vitamin D3 2000 units daily. 6. Citalopram 20 mg daily. 7. Livalo 1 mg daily. 8. Amlodipine 5 mg daily. 9. Aspirin 81 mg daily. CODE STATUS: Full code discussed with the patient in detail. Her daughter, Ms. Aquino, would be the surrogate decision maker. REVIEW OF SYSTEMS: A 14-point review of system is done. It is negative except for that mentioned in the history and physical. LABORATORY DATA: Her CBC is unremarkable. Serum chemistries unremarkable except for bicarb slightly low at 20. Blood sugar 111. Troponin less than 0.010. IMAGING STUDIES: Chest x-ray by my review shows no evidence to suggest pleural effusion, edema, or infiltrate. She has an old right-sided rib fracture, scarring of the right lower lobe with elevation of right hemidiaphragm. A 12-lead EKG by my review shows no evidence of acute ST or T-wave changes. Normal sinus rhythm. PHYSICAL EXAMINATION: VITAL SIGNS: Upon presentation; blood pressure 166/70, pulse of 62, respirations 17, saturating 96% on 2 L, and temperature 98.3. GENERAL: No acute distress. She is very tearful and appears anxious. Otherwise, sitting up in chair, awake, alert, and oriented x3. HEENT: Mucous membrane is moist and pink. No oropharyngeal exudate or erythema. Head is normocephalic and atraumatic. Pupils are equal and reactive to light and accommodation. Extraocular movement intact. NECK: Supple without any lymphadenopathy, JVD, or bruit. CHEST: Clear to auscultation without any wheezing, rales, or rhonchi. HEART: Rate and rhythm are regular. She has a loud 3/6 systolic murmur. ABDOMEN: Soft, nontender, and nondistended with positive bowel sounds. EXTREMITIES: Free of any cyanosis, clubbing, or edema. NEUROLOGICAL: Nonfocal. SKIN: Free of any rashes or bruises. Feels warm and dry to touch. PSYCHIATRIC: Anxious and tearful affect. IMPRESSION AND PLAN: 1. Chest pain. Even though, the patient's initial workup including cardiac enzymes and EKG is unremarkable, she does have multiple risk factors. We will go ahead and obtain a nuclear medicine stress test: Especially as she is scheduled to undergo knee replacement surgery within a week. We will continue to trend serial cardiac enzymes and provide her with a full-dose aspirin until acute coronary syndrome is ruled out. One dose of aspirin was given in the emergency room. Also, check lipid panel. We will provide adequate control of the blood pressure. We will restart her amlodipine and use p.r.n. antihypertensives. For some reason, the patient is not on any beta-geeta or NITA inhibitor. She will discuss this further with her packer insulation, Dr. Jenkins. 2. Aortic stenosis. Her last echo was done in 12/2016, at which time the aortic stenosis was moderate with a peak gradient of 43 mmHg and valve area of 1.2 cm2. We will obtain a transthoracic echocardiogram to assess if it has gotten worse. This is important especially in the light of upcoming knee replacement surgery. If the aortic stenosis has worsened: The patient is requesting to be seen by [facility] packer insulation as her orthopedician is also at our facility. 3. History of coronary artery disease. It appears to be stable, but for some reason, the patient is not on any aspirin, beta-geeta, or NITA inhibitor. We will restart her NITA inhibitor in the form of Edarbi. We will restart her Livalo. The patient also takes 81 mg of aspirin daily, which will also be restarted. 4. Hypertension. Restart her amlodipine and add p.r.n. antihypertensives. 5. Hypothyroidism. We will restart her thyroid supplements once the dosages are confirmed. 6. Deep venous thrombosis and gastrointestinal prophylaxis. 7. We will have walking program evaluate her and consult OT/PT if necessary. 8. Code status, full code as discussed with the patient. DISPOSITION: Ms. Goodson is currently being admitted to the hospital for ACS rule out. Estimated length of stay at this time is less than 2 midnights. Further management will depend upon her clinical course. Job ID: [id number]
[2018-07-08 14:37] LABS: Troponin I Less than 0.010 ng/mL (< 0.028)
[2018-07-08] MEDS: Sodium Chloride 0.9% 1,000 ML IV SCH (15:37)
[2018-07-08 18:02] LABS: Troponin I Less than 0.010 ng/mL (< 0.028)
[2018-07-08 19:07] VITALS: BMI 29.9
[2018-07-08] MEDS ORDERED: Simvastatin 5 MG TAB PO SCH (21:00)
[2018-07-08] MEDS: Famotidine/PF 20 mg/2ml Vial SLOW IVP SCH (22:40)
[2018-07-09] MEDS: Sodium Chloride 0.9% 1,000 ML IV SCH ×2 (03:33→17:12)
[2018-07-09] MEDS ORDERED: Levothyroxine Sodium 125 MCG TAB PO SCH (06:00)
[2018-07-09 07:08] LABS: Anion Gap 11 mmol/L (10-20); BUN (Urea Nitrogen) 11 mg/dL (9.8-20.1); Calc. Creatinine Clearance 79 mL/min (70-130); Carbon Dioxide 29 mmol/L (23-31); Chloride 102 mmol/L (98-107); Estimated GFR-MDRD 86; Glucose 91 mg/dL (83-110); Potassium 4.4 mmol/L (3.5-5.1); Sodium 138 mmol/L (136-145)
[2018-07-09 07:36] VITALS: TEMP 97.6
[2018-07-09] MEDS ORDERED: Dicyclomine 10 MG CAP PO PRN (08:37)
[2018-07-09] MEDS: Famotidine/PF 20 mg/2ml Vial SLOW IVP SCH (08:58)
[2018-07-09] MEDS ORDERED: Enoxaparin Sodium 40 MG/0.4 ML SYRINGE SC SCH (09:00)
[2018-07-09] MEDS ORDERED: Amlodipine 5 MG TAB PO SCH (09:00)
[2018-07-09] MEDS ORDERED: Non-Formulary Item 1 EACH (Esomeprazole Magnesium [Nexium] 40 MG) PO SCH (09:00)
[2018-07-09] MEDS ORDERED: PITAVASTATIN CALCIUM 1 MG PO SCH (09:00)
[2018-07-09] MEDS ORDERED: Aspirin 325 mg Enteric Coated Tablet PO SCH (09:00)
[2018-07-09] MEDS ORDERED: AZILSARTAN MEDOXOMIL 40 MG PO SCH (09:00)
--- NOTE | 2018-07-09 09:43 | PDOC.PN ---
- Subjective Encounter Start Date: 07/09/18 Encounter Start Time: 09:41 Subjective: feels better. had 1 more episode of sharp ,short lasting pain on left chest -: earlier was tender to palpation for RN on Left side chest -: no SOB. care discussed w DIL at bedside - Objective Resuscitation Status - Order Detail: 07/08/18 12:24 Resuscitation Status Routine Resuscitation Status: FULL: Full Resuscitation Discussed with: discussed w pt MAR Reviewed: Yes Vital Signs & Weight: Vital Signs (12 hours) Temp Pulse Resp BP BP Pulse Ox 07/09/18 08:58 67 169/73 H 07/09/18 07:35 97.6 F 67 18 169/73 H 97 07/09/18 04:00 97.9 F 81 16 139/63 93 L 07/09/18 00:05 97.7 F 70 16 139/63 92 L Weight Weight 180 lb I&O: 07/08/18 07/09/18 07/10/18 06:59 06:59 06:59 Intake Total 1109 Balance 1109 Result Diagrams: 07/08/18 10:08 07/09/18 06:08 Phys Exam - Physical Examination Constitutional: NAD HEENT: PERRLA, moist MMs, sclera anicteric, oral pharynx no lesions Neck: no nodes, no JVD, supple, full ROM Respiratory: no wheezing, no rales, no rhonchi, clear to auscultation bilateral Cardiovascular: RRR, no significant murmur Gastrointestinal: soft, non-tender, no distention, positive bowel sounds Musculoskeletal: no edema, pulses present Neurological: non-focal, normal sensation, moves all 4 limbs Psychiatric: normal affect, A&O x 3 Skin: no rash Dx/Plan (1) Chest pain Code(s): R07.9 - CHEST PAIN, UNSPECIFIED Status: Acute Comment: suspect musculoskeletal.NM Stress test pending (2) Aortic stenosis Code(s): I35.0 - NONRHEUMATIC AORTIC (VALVE) STENOSIS Status: Chronic Comment: Repeat ECHO (3) H/O: lung cancer Code(s): Z85.118 - PERSONAL HISTORY OF MALIGNANT NEOPLASM OF [place] AND LUNG Status: Chronic (4) CAD (coronary artery disease) Code(s): I25.10 - ATHSCL HEART DISEASE OF [place] CORONARY ARTERY W/O ANG PCTRS Status: Chronic Qualifiers: Coronary Disease-Associated Artery/Lesion type: [place] artery [place] vs. transplanted heart: [place] heart Associated angina: without angina Qualified Code(s): I25.10 - Atherosclerotic heart disease of [place] coronary artery without angina pectoris Comment: cont Statin,ARB (5) COPD (chronic obstructive pulmonary disease) Status: Chronic Qualifiers: COPD type: chronic bronchitis (6) Fibromyalgia Status: Chronic (7) Hypertension Code(s): I10 - ESSENTIAL (PRIMARY) HYPERTENSION Status: Chronic Qualifiers: Hypertension type: essential hypertension Qualified Code(s): I10 - Essential (primary) hypertension (8) Hypothyroidism Code(s): E03.9 - HYPOTHYROIDISM, UNSPECIFIED Status: Chronic Qualifiers: Hypothyroidism type: unspecified Qualified Code(s): E03.9 - Hypothyroidism , unspecified (9) Obesity (BMI 30.0-34.9) Code(s): E66.9 - OBESITY, UNSPECIFIED Status: Chronic (10) PVD (peripheral vascular disease) Code(s): I73.9 - PERIPHERAL VASCULAR DISEASE, UNSPECIFIED Status: Chronic - Plan out of bed/ambulate, DVT proph w/SCDs Awaiting studies as above -: HD stable. -: cont home meds -: ASA on hold due to upcomig Orthopedic Sx * . Review of Systems - Review of Systems Constitutional: negative: fever, chills, sweats, weakness, malaise, other Respiratory: negative: Cough, Dry, Shortness of Breath, Hemoptysis, SOB with Excertion, Pleuritic Pain, Sputum, Wheezing Cardiovascular: chest pain. negative: palpitations, orthopnea, paroxysmal nocturnal dyspnea, edema, light headedness, other Gastrointestinal: negative: Nausea, Vomiting, Abdominal Pain, Diarrhea, Constipation, Melena, Hematochezia, Other Genitourinary: negative: Dysuria, Frequency, Incontinence, Hematuria, Retention , Other Musculoskeletal: negative: Neck Pain, Shoulder Pain, Arm Pain, Back Pain, Hand Pain, Leg Pain, Foot Pain, Other Skin: negative: Rash, Lesions, Epi, Bruising, Other Neurological: negative: Weakness, Numbness, Incoordination, Change in Speech, Confusion, Seizures, Other - Medications/Allergies Allergies/Adverse Reactions: Allergies Allergy/AdvReac Type Severity Reaction Status Date / Time bacitracin Allergy Verified 07/03/18 13:14 [From Neosporin ([id number])] lactase [From Lactaid] Allergy Verified 07/03/18 13:14 metronidazole [From Flagyl] Allergy Verified 07/03/18 13:20 Milk Containing Products Allergy Verified 07/03/18 13:20 neomycin Allergy Verified 07/03/18 13:20 [From Neosporin ([id number])] polymyxin B Allergy Verified 07/03/18 13:20 [From Neosporin ([id number])] cephalexin monohydrate AdvReac Intermediate NAUSEA/ Verified 07/03/18 13:20 [From Keflex] tramadol AdvReac Intermediate NAUSEA/VOMI Verified 07/03/18 13:14 TING Medications: Current Medications Acetaminophen (Tylenol) 650 mg PO Q4H PRN PRN Reason: Headache/Fever/Mild Pain (1-3) Last Admin: 07/09/18 08:59 Dose: 650 mg Amlodipine Besylate (Norvasc) 5 mg PO DAILY [facility] Last Admin: 07/09/18 08:58 Dose: 5 mg Aspirin (Ecotrin) 325 mg PO DAILY [facility] Last Admin: 07/09/18 08:58 Dose: 325 mg Benzonatate (Tessalon) 100 mg PO Q6H PRN PRN Reason: Cough Bisacodyl (Dulcolax) 10 mg PO DAILYPRN PRN PRN Reason: Constipation Calcium Carbonate (Tums) 1,000 mg PO Q4H PRN PRN Reason: Heartburn or Indigestion Clonidine (Catapres) 0.1 mg PO Q4H PRN PRN Reason: SBP > 160____ Dicyclomine HCl (Bentyl) 10 mg PO DAILY PRN PRN Reason: abdominal cramps Enoxaparin Sodium (Lovenox) 40 mg SC 0900 [facility] Last Admin: 07/09/18 08:58 Dose: 40 mg Famotidine (Pepcid) 20 mg SLOW IVP Q12HR [facility] Last Admin: 07/09/18 08:58 Dose: 20 mg Guaifenesin (Robitussin Sf) 200 mg PO Q4H PRN PRN Reason: Cough Hydralazine HCl (Apresoline) 10 mg SLOW IVP Q4H PRN PRN Reason: SBP > 180 and HR < 70 Sodium Chloride (Normal Saline 0.9%) 1,000 mls @ 75 mls/hr IV .[id number] [facility] Last Admin: 07/09/18 03:33 Dose: Not Given Levothyroxine Sodium (Synthroid) 125 mcg PO 0600 [facility] Last Admin: 07/09/18 05:36 Dose: 125 mcg Nitroglycerin (Nitrostat) 0.4 mg SL Q5MIN PRN PRN Reason: Chest Pain Ondansetron HCl (Zofran) 4 mg IVP Q6H PRN PRN Reason: Nausea/Vomiting Pantoprazole Sodium (Protonix) 40 mg PO DAILY [facility] Last Admin: 07/09/18 08:59 Dose: 40 mg Edarbi Tab 0 each PO DAILY [facility] Senna/Docusate Sodium (Senokot S) 2 tab PO BID PRN PRN Reason: Constipation Simvastatin (Zocor) 10 mg PO HS [facility] Sodium Chloride (Flush - Normal Saline) 10 ml IVF Q12HR [facility] Last Admin: 07/09/18 08:59 Dose: 10 ml Sodium Chloride (Flush - Normal Saline) 10 ml IVF PRN PRN PRN Reason: Saline Flush
[2018-07-09] MEDS ORDERED: Regadenoson 0.4 MG/5 ML SYRINGE ONE (11:23)
--- NOTE | 2018-07-09 12:19 | NM ---
CARDIAC SPECT: HISTORY: An 88-year-old female with chest pain, coronary artery disease, stent placement, and hypertension. TECHNIQUE: A myocardial perfusion scan was performed using the single isotope two-day protocol with 29 millicuri es of technetium 99m sestamibi, injected intravenously for rest and stress images. Pharmacologic str ess with Lexiscan was monitored and interpreted by Dr. Cornejo. FINDINGS: Homogeneous tracer distribution is seen in the myocardial segments on stress and rest images without fixed or reversible defects. GATED SPECT LVEF: 80% WALL MOTION EXAM: Normal. IMPRESSION: Normal myocardial perfusion scan. POS: TPC
[2018-07-09 16:02] VITALS: BP 134/61
--- NOTE | 2018-07-09 17:57 | DIS ---
DATE OF ADMISSION: 07/08/2018 DATE OF DISCHARGE: 07/09/2018 PRIMARY CARE PHYSICIAN: Zakia Estrada MD CONDITION AT THE TIME OF DISCHARGE: Stable and improved. PRIMARY DISCHARGE DIAGNOSES: 1. Chest pain, noncardiac, likely stress related. Acute coronary syndrome is ruled out. 2. Moderate aortic stenosis. SECONDARY DISCHARGE DIAGNOSES: Hypertension, coronary artery disease, hypothyroidism, history of lung cancer, and GERD. DISCHARGE MEDICATIONS: Remain the same as the admission medications. Please see admission H and P dictated by myself yesterday. No changes were made. PROCEDURES DONE IN THE HOSPITAL: 1. Nuclear medicine stress test, which shows EF estimated at 80% with normal myocardial perfusion scan. 2. Transthoracic echocardiogram, which shows EF 60% to 65%, grade 1/3 diastolic dysfunction, calcified aortic valve with moderate aortic valve stenosis with an area of 1.3 cm2. HISTORY OF PRESENTING ILLNESS: Ms. Goodson is an 88-year-old female with known history of coronary artery disease and moderate aortic stenosis, who presented to the emergency room with complaints of chest pain. She was hemodynamically stable. Initial cardiac enzymes and EKG were unremarkable. She was admitted on observation unit with telemetry monitoring for ACS rule out. She has history of moderate aortic stenosis in our system about 2 years ago and is scheduled to undergo a knee replacement surgery with Dr. Wesley on July 15, 2018. She was admitted for further care and ACS rule out. Please see admission history and physical for further details. HOSPITAL COURSE: Ms. Goodson had an uneventful hospital course. Cardiac enzymes were trended and were negative. She remained hemodynamically stable. Lipid panel was checked and was within normal limit. Stress test was unremarkable. There was no evidence of ischemia. Echo was consistent with moderate aortic stenosis, which has not worsened in the last 2 years. Unfortunately, the patient is very stressed out and feeling overwhelmed and has canceled her surgery for now. She was seen and examined prior to discharge. Please see hospitalist's progress note from today's date for further details. Discharge plan was discussed with the patient and her [id number]. I have told them that she can undergo the knee replacement without any hesitation. At this time, she has rescheduled it for possibly next month. She will follow with primary care physician further with regard to this and with Orthopedics. She has requested Cardiology referral to [facility] physicians and will be referred to Dr. Cornejo, who read her echo today. The patient is being discharged. Job ID: [id number]
[2018-07-09] MEDS ORDERED: Simvastatin 5 MG TAB PO SCH (21:00)
[2018-07-10] MEDS ORDERED: Losartan 25 MG TAB PO SCH (09:00)
== END 2018-07-09 18:19 | disposition home or self-care (01) ==
LOC: ERS 09:30 → ERHOLD 12:14 → 2SW 18:31
PROVIDERS: ADMIT Internal Medicine; ATTEND Internal Medicine
DX: R07.89 Other chest pain (principal); I35.0 Nonrheumatic aortic (valve) stenosis; I25.10 Atherosclerotic heart disease of native coronary artery without angina pectoris; I10 Essential (primary) hypertension; E03.9 Hypothyroidism, unspecified; K21.9 Gastro-esophageal reflux disease without esophagitis; M79.7 Fibromyalgia; I73.9 Peripheral vascular disease, unspecified; E66.9 Obesity, unspecified; Z68.30 Body mass index [BMI] 30.0-30.9, adult; Z85.118 Personal history of other malignant neoplasm of bronchus and lung; Z79.82 Long term (current) use of aspirin; Z79.899 Other long term (current) drug therapy; Z88.1 Allergy status to other antibiotic agents; Z88.5 Allergy status to narcotic agent; Z88.8 Allergy status to other drugs, medicaments and biological substances; Z91.011 Allergy to milk products; Z98.890 Other specified postprocedural states
CPT/HCPCS: 71045; 78452; 80048; 80053; 80061; 83690; 84484 ×2; 85025; 93005; 93017; 93306; 96361; 96372; 96374; 96376; 97139 ×3; 99285; A9500; G0378 ×2; 36415; J1650; J2785; S0028

== ENCOUNTER 2018-09-10 08:33 | Outpatient (CLI) | payer MEDICARE ==
[2018-09-10 10:05] LABS: #Eosinphils 0.2 thou/uL (0.0-0.7); #Lymphocytes 2.6 thou/uL (1.20-3.40); #Monocytes 0.6 thou/uL (0.11-0.59); #Neutrophils 5.2 thou/uL (1.40-6.50); %Basophils 0.5 % (0.0-1.0); %Eosinophils 1.9 % (0.0-10.0); %Lymphocytes 29.9 % (21.0-51.0); %Monocytes 6.8 % (0.0-10.0); Hemoglobin 12.8 g/dL (12.0-16.0); Mean Corpuscular HGB CONC 32.6 g/dL (32.0-36.0); Mean Corpuscular Hemoglobin 32.1 pg (27.0-31.0); Mean Corpuscular Volume 98.5 fL (78.0-98.0); Mean Platelet Volume 9.1 fL (7.4-10.4); Platelet Count 234 thou/uL (130-400); RBC Distribution Width 11.6 % (11.5-14.5); Red Blood Cell (RBC) Count 3.98 mill/uL (4.20-5.40); White Blood Cell (WBC) Count 8.6 thou/uL (4.8-10.8)
[2018-09-10 10:23] LABS: Anion Gap 11 mmol/L (10-20); BUN (Urea Nitrogen) 18 mg/dL (9.8-20.1); Calc. Creatinine Clearance 0 mL/min (70-130); Calcium 10.5 mg/dL (7.8-10.44); Carbon Dioxide 30 mmol/L (23-31); Chloride 101 mmol/L (98-107); Estimated GFR-MDRD 73; Glucose 84 mg/dL (83-110); Potassium 4.8 mmol/L (3.5-5.1); Sodium 137 mmol/L (136-145)
== END 2018-09-10 08:34 | disposition home or self-care (01) ==
LOC: LABBT 08:33
PROVIDERS: ATTEND Orthopaedic Surgery
DX: Z01.812 Encounter for preprocedural laboratory examination (principal); M17.12 Unilateral primary osteoarthritis, left knee
CPT/HCPCS: 80048; 85025

== ENCOUNTER 2018-09-16 10:14 | Inpatient (IN) | payer MEDICARE ==
[2018-09-10 08:54] VITALS: BMI 28.7
[2018-09-16] MEDS ORDERED: Vancomycin HCl 1.5 GM in Sodium Chloride 0.9% 250 ML 300 ML IVPB SCH (11:00)
[2018-09-16] MEDS ORDERED: Sodium Chloride 0.9% 100 ML ONE (11:08)
[2018-09-16] MEDS ORDERED: Tranexamic Acid 1,000 MG/10 ML VIAL ONE ×2 (11:08→16:13)
[2018-09-16] MEDS ORDERED: Midazolam HCl 2 mg/2 ml Vial ONE (12:08)
[2018-09-16] MEDS ORDERED: Fentanyl 100 MCG/2 ML VIAL ONE ×2 (12:08→16:07)
[2018-09-16] MEDS ORDERED: Lidocaine 1% (PF) 30 ML VIAL ONE (12:17)
[2018-09-16] MEDS ORDERED: Ondansetron PF 4 MG/2 ML Vial IVP PRN ×2 (12:40→13:34)
[2018-09-16] MEDS ORDERED: Promethazine HCl 25 MG/ML VIAL IM PRN ×2 (12:40→13:34)
[2018-09-16] MEDS ORDERED: Ketorolac Tromethamine 30 MG/ML VIAL IVP PRN (12:40)
[2018-09-16] MEDS ORDERED: Zolpidem Tartrate 5 MG TAB PO PRN ×2 (12:40→13:34)
[2018-09-16] MEDS ORDERED: HYDROcodone/Acetaminophen 10/325 mg Tablet PO PRN (12:40)
[2018-09-16] MEDS ORDERED: Fentanyl 100 MCG/2 ML VIAL SLOW IVP PRN (12:42)
[2018-09-16] MEDS ORDERED: Methocarbamol 500 MG TAB PO PRN (12:43)
[2018-09-16] MEDS ORDERED: diphenhydrAMINE 25 MG CAP PO PRN (13:34)
[2018-09-16] MEDS ORDERED: Loperamide HCl 2 MG CAP PO PRN (13:47)
[2018-09-16] MEDS ORDERED: Ropivacaine 0.2% HCl/PF (40 MG/20 ML VIAL) ONE (13:55)
[2018-09-16] MEDS ORDERED: Ropivacaine 0.5% HCl/PF (150 MG/30 ML VIAL) ONE (13:55)
[2018-09-16] MEDS ORDERED: PROPOFOL 200 MG/20 ML VIAL ONE (15:25)
[2018-09-16] MEDS ORDERED: ePHEDrine 50 MG/ML VIAL ONE (15:25)
[2018-09-16] MEDS ORDERED: Ondansetron PF 4 MG/2 ML Vial ONE (15:25)
[2018-09-16] MEDS ORDERED: Lidocaine 1% PF 5 ML VIAL ONE (15:25)
--- NOTE | 2018-09-16 16:21 | RAD ---
LEFT KNEE TWO VIEWS: 09/16/18 HISTORY: Postoperative total knee replacement. FINDINGS/IMPRESSION: AP and lateral views of the left knee demonstrates recent total knee replacement. No periprosthetic f racture or dislocation. POS: TPC
[2018-09-16] MEDS: CEFAZOLIN 2 GM in Premix Bag 1 BAG IVPB SCH ×2 (20:22→20:32)
[2018-09-16] MEDS: Sodium Chloride 0.9% 1,000 ML IV SCH (20:24)
[2018-09-16] MEDS: Ferrous Gluconate 324 MG TAB PO SCH (20:33)
[2018-09-16] MEDS: Citalopram 20 MG TAB PO SCH (20:33)
[2018-09-16] MEDS: Amlodipine 5 MG TAB PO SCH (20:33)
[2018-09-16] MEDS: Simvastatin 20 MG TAB PO SCH (20:34)
[2018-09-16] MEDS: Aspirin Chewable 81 MG TAB PO SCH (20:34)
[2018-09-16] MEDS: Senokot S 8.6-50 MG TAB PO SCH (20:35)
[2018-09-16] MEDS ORDERED: Aspirin 81 mg Enteric Coated Tablet PO SCH (21:00)
--- NOTE | 2018-09-16 21:38 | OP ---
DATE OF PROCEDURE: 09/16/2018 PREOPERATIVE DIAGNOSIS: End-stage tricompartmental osteoarthritis, left knee. POSTOPERATIVE DIAGNOSIS: End-stage tricompartmental osteoarthritis, left knee. OPERATIVE PROCEDURE: Cemented cruciate sparing computer-assisted navigated left total knee arthroplasty. ADMINISTRATIVE FELLOW: Jonatan Anthony PA-C. ANESTHESIA: General via LMA, augmented with indwelling adductor canal block and a single shot anterior sciatic block. COMPONENTS USED: [employer] Triathlon, size 4 cemented cruciate sparing femoral component with a size 5 cemented primary tibial base plate, 9 mm polyethylene fixed-bearing insert, and a 32 patella button. FINDINGS: End-stage severe degenerative tricompartmental disease, [id number] arthrosis, periarticular osteophyte formation, large serous effusion, and hypertrophic synovium. TOURNIQUET TIME: 50 minutes at 300 mmHg. ESTIMATED BLOOD LOSS: Less than 100. DRAINS: None. SPECIMENS: None. COMPLICATIONS: None. COUNTS: Correct. INDICATION FOR SURGERY: Alysia is an 88-year-old white female who has had progressive left knee pain and problems with standing and walking for the last 5 to 7 years. She has failed conservative management and elected to proceed with total knee arthroplasty as definitive treatment of her pain. PROCEDURE IN DETAIL: After informed consent was obtained in the preoperative holding area, the patient was taken to the operative suite where general anesthesia was induced. Once adequate level of general anesthesia was obtained, the patient was positioned and a well-padded tourniquet was placed around the left proximal thigh. The left lower extremity was then prepped and draped in the usual sterile fashion. Prior to exsanguination, a time-out was called and all members of the surgical team agreed upon site, surgeon, and patient. The extremity was then exsanguinated and the tourniquet was raised. A midline longitudinal incision was then made directly over the patella extending 2 fingerbreadths above the superior pole of the patella and 2 fingerbreadths inferior to the inferior patellar pole of the patella. Deeper subcutaneous layers were dissected sharply and local bleeding was controlled with Bovie electrocautery. A quad tendon longitudinal split was then made sharply and a median parapatellar arthrotomy was carried out both sharp and with Bovie electrocautery, carried down to 1 fingerbreadth medial to the tibial tubercle. The knee was then placed into flexion and the patella was everted nicely, and a copious fat pad ectomy was performed allowing for greater exposure of the tibia. The computer-assisted distal femoral fiducial was then placed and pinned firmly, and the distal femoral cutting guide was pinned firmly into place. The oscillating saw was then used to remove the appropriate amount of bone. The 4-in-1 cutting block was then placed on the distal femur and the oscillating saw was used to remove the appropriate amount of bone off the anterior, posterior, and chamfer cuts. After completion of bone cuts, the anterior cruciate ligament was resected sharply and the posterior cruciate ligament retractor was placed and the tibia was subluxed for better exposure. Partial meniscectomies were carried out, and the tibial computer-assisted fiducial was pinned, and the cutting guide was placed. Oscillating saw was then used to remove the bone, with Hohmann retractors used to take care and protect the collateral ligaments. After the tibial resection was performed, a laminar hood fitter was placed in between the freshened bone cuts. The knee placed at 90 degrees and further bilateral meniscectomies were carried out, and the curved osteotome and curettage were used to remove any excess bone spurs in the posterior compartment. The trial femoral component, tibial baseplate were placed with the appropriate polyethylene trial insert with an appropriate polyethylene spacer and patellar button. The knee was taken through full range of motion with flexion and extension from 0 to 90 degrees and patellar broach squarely in the trochlea without any squinting or subluxation noted. The knee was also stable to varus and valgus stressing at 0, 15, 45, and 90 degrees of flexion. The drawer was negative. All trial components were then removed and the keel punch was used to provide the appropriate defect in the tibia with a mallet. The freshened bone cuts were copiously irrigated with pulsatile lavage of about 1.5 L to remove all excess debris. The freshened bone cuts were then dried with suction and lap sponge. The knee was placed in flexion and retractors were placed to provide access to all bone cuts. Tobramycin-impregnated methyl methacrylate cement was then placed on the freshened bone cuts and implants which were malleted firmly into place. Curettage and [place] elevators were used to remove any excess bone cement. The knee was placed into full extension and the patellar button was placed under compression, and the cement was allowed to cure. Once completed, the components were again taken through full range of motion and copious irrigation of the knee was carried out with another liter of normal saline. All components were inspected fully with full range of motion and varus and valgus stressing. There was no laxity noted and full extension was observed clinically. Primary closure was accomplished with #2 interrupted Vicryl stitch of the arthrotomy defect. This was oversewn with a #2 running Quill barbed stitch. The gravitational platelet system was then injected into the arthrotomy prior to closure. The subcutaneous layer was then closed with a running 0 barbed Monocryl stitch and skin closure accomplished with a running subcuticular 3-0 Monocryl barbed Quill stitch and augmented with cement on the skin. Tourniquet was lowered. Good spontaneous return of distal pulses was noted clinically and a sterile dressing was applied to the incision. The procedure was terminated without any complications. The patient was awakened in the operative suite and the airway was removed, and the patient was taken to the recovery room in stable condition. Job ID: [id number]
[2018-09-16] MEDS: HYDROcodone/Acetaminophen 10/325 mg Tablet PO PRN (22:59)
[2018-09-17 04:51] LABS: Hemoglobin 10.6 g/dL (12.0-16.0); Mean Corpuscular HGB CONC 32.3 g/dL (32.0-36.0); Mean Corpuscular Hemoglobin 32.5 pg (27.0-31.0); Mean Platelet Volume 9.1 fL (7.4-10.4); Platelet Count 177 thou/uL (130-400); RBC Distribution Width 11.5 % (11.5-14.5); Red Blood Cell (RBC) Count 3.27 mill/uL (4.20-5.40)
[2018-09-17] MEDS: HYDROcodone/Acetaminophen 10/325 mg Tablet PO PRN ×2 (05:47→13:44)
[2018-09-17] MEDS: Levothyroxine Sodium 125 MCG TAB PO SCH (05:49)
[2018-09-17] MEDS: CEFAZOLIN 2 GM in Premix Bag 1 BAG IVPB SCH (05:49)
[2018-09-17] MEDS: Sodium Chloride 0.9% 1,000 ML IV SCH ×2 (05:53→11:04)
[2018-09-17] MEDS: Cyanocobalamin (Vitamin B-12) 1,000 MCG TAB PO SCH (09:00)
[2018-09-17] MEDS: Multivitamin W/ Minerals 1 TAB PO SCH (09:00)
[2018-09-17] MEDS: Ferrous Gluconate 324 MG TAB PO SCH ×2 (09:01→22:20)
[2018-09-17] MEDS: Losartan 25 MG TAB PO SCH (09:01)
[2018-09-17] MEDS: Ubidecarenone 50 MG CAP PO SCH (09:03)
[2018-09-17] MEDS: Senokot S 8.6-50 MG TAB PO SCH ×2 (11:04→23:05)
--- NOTE | 2018-09-17 16:14 | PDOC.PN ---
- Subjective Encounter Start Date: 09/17/18 Encounter Start Time: 16:00 Subjective: pt up in bed no complains of pain - Objective Vital Signs & Weight: Vital Signs (12 hours) Temp Pulse Resp BP Pulse Ox 09/17/18 14:59 98.6 F 82 14 113/57 L 96 09/17/18 09:15 100 09/17/18 07:55 97.9 F 83 16 121/67 100 Weight Admit Weight 178 lb Weight 178 lb I&O: 09/16/18 09/17/18 09/18/18 06:59 06:59 06:59 Intake Total 1980 Output Total 1100 Balance 880 Result Diagrams: 09/17/18 04:37 Phys Exam - Physical Examination Neck: no nodes, no JVD, supple, full ROM Respiratory: no wheezing, no rales, no rhonchi, wheezing present, clear to auscultation bilateral Cardiovascular: RRR, no rub systolic murmur heard on her right sterum border Gastrointestinal: soft, non-tender, no distention, positive bowel sounds Dx/Plan (1) CAD (coronary artery disease) Code(s): I25.10 - ATHSCL HEART DISEASE OF [place] CORONARY ARTERY W/O ANG PCTRS Status: Chronic Qualifiers: (2) Hypertension Code(s): I10 - ESSENTIAL (PRIMARY) HYPERTENSION Status: Chronic Qualifiers: (3) Hypothyroidism Code(s): E03.9 - HYPOTHYROIDISM, UNSPECIFIED Status: Chronic Qualifiers: - Plan vitals stable, will continue home meds -: continue norvasc -: asa for dvt ppx * . Review of Systems - Review of Systems Cardiovascular: negative: chest pain, palpitations, orthopnea, paroxysmal nocturnal dyspnea, edema, light headedness, other - Medications/Allergies Allergies/Adverse Reactions: Allergies Allergy/AdvReac Type Severity Reaction Status Date / Time bacitracin Allergy Verified 09/10/18 08:55 [From Neosporin ([id number])] lactase [From Lactaid] Allergy Verified 09/10/18 08:55 metronidazole [From Flagyl] Allergy Verified 09/10/18 08:55 Milk Containing Products Allergy Verified 09/10/18 08:55 neomycin Allergy Verified 09/10/18 08:55 [From Neosporin ([id number])] polymyxin B Allergy Verified 09/10/18 08:55 [From Neosporin ([id number])] cephalexin monohydrate AdvReac Intermediate NAUSEA/ Verified 09/10/18 08:55 [From Keflex] tramadol AdvReac Intermediate NAUSEA/VOMI Verified 09/10/18 08:55 TING Medications: Current Medications Acetaminophen (Tylenol) 650 mg PO Q4H PRN PRN Reason: Headache/Fever or Pain Hydrocodone Bitart/Acetaminophen ([place] 10/325) 1 tab PO Q4H PRN PRN Reason: Pain (1-3) Hydrocodone Bitart/Acetaminophen ([place] 10/325) 2 tab PO Q4H PRN PRN Reason: PAIN (4-6) Last Admin: 09/17/18 13:44 Dose: 2 tab Albuterol Sulfate (Proventil Hfa) 2 puff INH Q6H PRN PRN Reason: SOB &/or Wheezing Amlodipine Besylate (Norvasc) 5 mg PO QPM [facility] Last Admin: 09/16/18 20:33 Dose: 5 mg Aspirin (Aspirin Chewable) 81 mg PO HS [facility] Last Admin: 09/16/18 20:34 Dose: 81 mg Cholecalciferol (Vitamin D3) 2,000 units PO DAILY [facility] Last Admin: 09/17/18 08:59 Dose: 2,000 units Citalopram Hydrobromide (Celexa) 20 mg PO HS [facility] Last Admin: 09/16/18 20:33 Dose: 20 mg Coenzyme Q10 (Coenzyme Q10) 100 mg PO DAILY [facility] Last Admin: 09/17/18 09:03 Dose: 100 mg Cyanocobalamin (Vitamin B-12) 1,000 mcg PO DAILY [facility] Last Admin: 09/17/18 09:00 Dose: 1,000 mcg Dicyclomine HCl (Bentyl) 10 mg PO DAILY PRN PRN Reason: abdominal cramps Diphenhydramine HCl (Benadryl) 25 mg PO Q6H PRN PRN Reason: Itching Fentanyl (Sublimaze) 50 mcg SLOW IVP Q1H PRN PRN Reason: Breakthrough Pain Ferrous Gluconate (Fergon) 324 mg PO BID [facility] Last Admin: 09/17/18 09:01 Dose: 324 mg Ropivacaine 250 ml/ Device 250 mls @ 10 mls/hr NERVE BLCK INF [facility] Sodium Chloride (Normal Saline 0.9%) 1,000 mls @ 100 mls/hr IV .Q10H [facility] Last Admin: 09/17/18 11:04 Dose: Not Given Iron/Minerals/Multivitamins (Theragran M) 1 tab PO DAILY [facility] Last Admin: 09/17/18 09:00 Dose: 1 tab Ketorolac Tromethamine (Toradol) 15 mg IVP Q6H PRN PRN Reason: Moderate Pain (4-6) Stop: 09/19/18 12:41 Levothyroxine Sodium (Synthroid) 125 mcg PO 0600 [facility] Last Admin: 09/17/18 05:49 Dose: 125 mcg Loperamide HCl (Imodium) 2 mg PO PRN PRN PRN Reason: Diarrhea/Loose Stools Losartan Potassium (Cozaar) 100 mg PO QAM [facility] Last Admin: 09/17/18 09:01 Dose: 100 mg Methocarbamol (Robaxin) 750 mg PO Q4H PRN PRN Reason: Muscle Spasms/ Pain Ondansetron HCl (Zofran) 4 mg IVP Q6H PRN PRN Reason: Nausea/Vomiting Pantoprazole Sodium (Protonix) 40 mg PO DAILY [facility] Last Admin: 09/17/18 09:00 Dose: 40 mg Promethazine HCl (Phenergan) 12.5 mg IM Q4H PRN PRN Reason: Nausea/Vomiting Senna/Docusate Sodium (Senokot S) 2 tab PO BID [facility] Last Admin: 09/17/18 11:04 Dose: Not Given Simvastatin (Zocor) 10 mg PO HS [facility] Last Admin: 09/16/18 20:34 Dose: Not Given Sodium Chloride (Flush - Normal Saline) 10 ml IVF PRN PRN PRN Reason: Saline Flush Zolpidem Tartrate (Ambien) 5 mg PO HSPRN PRN PRN Reason: Insomnia
[2018-09-17] MEDS: Ropivacaine HCl/PF 250 ML in Premix Bag 1 BAG NERVE BLCK SCH (18:02)
[2018-09-17] MEDS ORDERED: Sodium Chloride 0.9% 1,000 ML IV SCH (19:00)
[2018-09-17] MEDS: Acetaminophen 325 MG TAB PO PRN (22:17)
[2018-09-17] MEDS: Citalopram 20 MG TAB PO SCH (22:18)
[2018-09-17] MEDS: Amlodipine 5 MG TAB PO SCH (22:19)
[2018-09-17] MEDS: Aspirin Chewable 81 MG TAB PO SCH (22:21)
[2018-09-17] MEDS: Simvastatin 20 MG TAB PO SCH (23:05)
[2018-09-18 05:04] LABS: Hemoglobin 10.5 g/dL (12.0-16.0); Mean Corpuscular HGB CONC 32.5 g/dL (32.0-36.0); Mean Corpuscular Hemoglobin 32.5 pg (27.0-31.0); Mean Platelet Volume 9.8 fL (7.4-10.4); Platelet Count 154 thou/uL (130-400); RBC Distribution Width 11.4 % (11.5-14.5); Red Blood Cell (RBC) Count 3.23 mill/uL (4.20-5.40); White Blood Cell (WBC) Count 14.2 thou/uL (4.8-10.8)
[2018-09-18] MEDS: Levothyroxine Sodium 125 MCG TAB PO SCH (06:50)
[2018-09-18] MEDS: Acetaminophen 325 MG TAB PO PRN ×2 (07:52→17:15)
[2018-09-18] MEDS: Ferrous Gluconate 324 MG TAB PO SCH ×2 (09:30→20:07)
[2018-09-18] MEDS: Senokot S 8.6-50 MG TAB PO SCH ×3 (09:31→20:54)
[2018-09-18] MEDS: Cyanocobalamin (Vitamin B-12) 1,000 MCG TAB PO SCH (09:32)
[2018-09-18] MEDS: Multivitamin W/ Minerals 1 TAB PO SCH (09:32)
[2018-09-18] MEDS: Losartan 25 MG TAB PO SCH (09:32)
[2018-09-18] MEDS ORDERED: Fentanyl 100 MCG/2 ML VIAL SLOW IVP SCH (09:45)
[2018-09-18] MEDS ORDERED: Acetaminophen/Codeine 30-300mg Tablet PO SCH (09:45)
[2018-09-18] MEDS: Ubidecarenone 50 MG CAP PO SCH (13:50)
[2018-09-18] MEDS: PROVENTIL INHALER 6.7 G (200 INHALATIONS) INH PRN (19:01)
[2018-09-18] MEDS: Ropivacaine HCl/PF 250 ML in Premix Bag 1 BAG NERVE BLCK SCH (19:25)
[2018-09-18] MEDS: Aspirin Chewable 81 MG TAB PO SCH (20:06)
[2018-09-18] MEDS: Amlodipine 5 MG TAB PO SCH (20:06)
[2018-09-18] MEDS: Citalopram 20 MG TAB PO SCH (20:07)
[2018-09-18] MEDS: Simvastatin 20 MG TAB PO SCH (20:53)
[2018-09-19] MEDS: Levothyroxine Sodium 125 MCG TAB PO SCH (06:30)
[2018-09-19] MEDS ORDERED: hydrALAZINE 20 MG/ML VIAL SLOW IVP PRN (07:39)
[2018-09-19] MEDS: Losartan 25 MG TAB PO SCH (09:53)
[2018-09-19] MEDS: Multivitamin W/ Minerals 1 TAB PO SCH (09:54)
[2018-09-19] MEDS: Ubidecarenone 50 MG CAP PO SCH (09:54)
[2018-09-19] MEDS: Ferrous Gluconate 324 MG TAB PO SCH ×2 (09:54→21:43)
[2018-09-19] MEDS: Acetaminophen/Codeine 30-300mg Tablet PO PRN ×3 (09:55→21:44)
[2018-09-19] MEDS: Cyanocobalamin (Vitamin B-12) 1,000 MCG TAB PO SCH (09:55)
[2018-09-19] MEDS: Senokot S 8.6-50 MG TAB PO SCH ×2 (09:55→21:44)
[2018-09-19] MEDS: Acetaminophen 325 MG TAB PO PRN ×3 (10:03→21:44)
[2018-09-19] MEDS: PROVENTIL INHALER 6.7 G (200 INHALATIONS) INH PRN (12:23)
--- NOTE | 2018-09-19 16:14 | PDOC.PN ---
- Subjective Encounter Start Date: 09/19/18 Encounter Start Time: 08:00 Pt seen for followup re: HTN. Pain is better, no complaints. - Objective MAR Reviewed: Yes Vital Signs & Weight: Vital Signs (12 hours) Temp Pulse Resp BP Pulse Ox 09/19/18 12:23 80 16 09/19/18 11:48 98.9 F 80 22 H 145/69 H 98 09/19/18 08:00 98.1 F 88 22 H 148/66 H Weight Admit Weight 178 lb Weight 178 lb I&O: 09/18/18 09/19/18 09/20/18 06:59 06:59 06:59 Intake Total 2380 1200 Output Total 3800 3500 2100 Balance -1420 -2300 -2100 Result Diagrams: 09/18/18 04:14 Radiology Reviewed by me: Yes (Labs reviewed by me) Phys Exam - Physical Examination Constitutional: NAD HEENT: moist MMs Neck: supple Respiratory: clear to auscultation bilateral Cardiovascular: RRR Gastrointestinal: soft s/p L knee surgery Neurological: moves all 4 limbs Psychiatric: normal affect Dx/Plan (1) Hypertension Code(s): I10 - ESSENTIAL (PRIMARY) HYPERTENSION Status: Chronic Qualifiers: Comment: controlled, add PRN IV hydralazine for blood pressure spikes. (2) CAD (coronary artery disease) Code(s): I25.10 - ATHSCL HEART DISEASE OF [place] CORONARY ARTERY W/O ANG PCTRS Status: Chronic Qualifiers: Comment: stable (3) COPD (chronic obstructive pulmonary disease) Status: Chronic Qualifiers: COPD type: chronic bronchitis Comment: stable (4) Hypothyroidism Code(s): E03.9 - HYPOTHYROIDISM, UNSPECIFIED Status: Chronic Qualifiers: Comment: continue synthroid (5) Dyslipidemia Code(s): E78.5 - HYPERLIPIDEMIA, UNSPECIFIED Status: Chronic Comment: continue Zocor - Plan * . Review of Systems - Review of Systems Cardiovascular: negative: chest pain, palpitations, orthopnea, paroxysmal nocturnal dyspnea, edema, light headedness Gastrointestinal: negative: Nausea, Vomiting, Abdominal Pain, Diarrhea, Constipation, Melena, Hematochezia - Medications/Allergies Allergies/Adverse Reactions: Allergies Allergy/AdvReac Type Severity Reaction Status Date / Time bacitracin Allergy Verified 09/10/18 08:55 [From Neosporin ([id number])] lactase [From Lactaid] Allergy Verified 09/10/18 08:55 metronidazole [From Flagyl] Allergy Verified 09/10/18 08:55 Milk Containing Products Allergy Verified 09/10/18 08:55 neomycin Allergy Verified 09/10/18 08:55 [From Neosporin ([id number])] polymyxin B Allergy Verified 09/10/18 08:55 [From Neosporin ([id number])] cephalexin monohydrate AdvReac Intermediate NAUSEA/ Verified 09/10/18 08:55 [From Keflex] tramadol AdvReac Intermediate NAUSEA/VOMI Verified 09/10/18 08:55 TING Medications: Current Medications Acetaminophen (Tylenol) 650 mg PO Q4H PRN PRN Reason: Headache/Fever or Pain Last Admin: 09/19/18 10:03 Dose: 650 mg Acetaminophen/Codeine Phosphate (Tylenol #3) 1 tab PO Q4H PRN PRN Reason: Moderate Pain (4-7) Last Admin: 09/19/18 09:55 Dose: 1 tab Acetaminophen/Codeine Phosphate (Tylenol #3) 2 tab PO Q4H PRN PRN Reason: Severe Pain (8-10) Hydrocodone Bitart/Acetaminophen ([place] 10/325) 1 tab PO Q4H PRN PRN Reason: Pain (1-3) Hydrocodone Bitart/Acetaminophen ([place] 10/325) 2 tab PO Q4H PRN PRN Reason: PAIN (4-6) Last Admin: 09/17/18 13:44 Dose: 2 tab Albuterol Sulfate (Proventil Hfa) 2 puff INH Q6H PRN PRN Reason: SOB &/or Wheezing Last Admin: 09/19/18 12:23 Dose: 2 puff Amlodipine Besylate (Norvasc) 5 mg PO QPM [facility] Last Admin: 09/18/18 20:06 Dose: 5 mg Aspirin (Aspirin Chewable) 81 mg PO HS [facility] Last Admin: 09/18/18 20:06 Dose: 81 mg Cholecalciferol (Vitamin D3) 2,000 units PO DAILY [facility] Last Admin: 09/19/18 09:54 Dose: 2,000 units Citalopram Hydrobromide (Celexa) 20 mg PO HS [facility] Last Admin: 09/18/18 20:07 Dose: 20 mg Coenzyme Q10 (Coenzyme Q10) 100 mg PO DAILY [facility] Last Admin: 09/19/18 09:54 Dose: 100 mg Cyanocobalamin (Vitamin B-12) 1,000 mcg PO DAILY [facility] Last Admin: 09/19/18 09:55 Dose: 1,000 mcg Dicyclomine HCl (Bentyl) 10 mg PO DAILY PRN PRN Reason: abdominal cramps Diphenhydramine HCl (Benadryl) 25 mg PO Q6H PRN PRN Reason: Itching Fentanyl (Sublimaze) 50 mcg SLOW IVP Q1H PRN PRN Reason: Breakthrough Pain Ferrous Gluconate (Fergon) 324 mg PO BID [facility] Last Admin: 09/19/18 09:54 Dose: 324 mg Hydralazine HCl (Apresoline) 10 mg SLOW IVP Q6H PRN PRN Reason: SBP Greater Than 170 Ropivacaine 250 ml/ Device 250 mls @ 10 mls/hr NERVE BLCK INF [facility] Last Admin: 09/18/18 19:25 Dose: 250 mls Iron/Minerals/Multivitamins (Theragran M) 1 tab PO DAILY [facility] Last Admin: 09/19/18 09:54 Dose: 1 tab Levothyroxine Sodium (Synthroid) 125 mcg PO 0600 [facility] Last Admin: 09/19/18 06:30 Dose: 125 mcg Loperamide HCl (Imodium) 2 mg PO PRN PRN PRN Reason: Diarrhea/Loose Stools Losartan Potassium (Cozaar) 100 mg PO QAM [facility] Last Admin: 09/19/18 09:53 Dose: 100 mg Methocarbamol (Robaxin) 750 mg PO Q4H PRN PRN Reason: Muscle Spasms/ Pain Ondansetron HCl (Zofran) 4 mg IVP Q6H PRN PRN Reason: Nausea/Vomiting Pantoprazole Sodium (Protonix) 40 mg PO DAILY [facility] Last Admin: 09/19/18 09:54 Dose: 40 mg Promethazine HCl (Phenergan) 12.5 mg IM Q4H PRN PRN Reason: Nausea/Vomiting Senna/Docusate Sodium (Senokot S) 2 tab PO BID [facility] Last Admin: 09/19/18 09:55 Dose: Not Given Simvastatin (Zocor) 10 mg PO [facility] Last Admin: 07/11/19 20:53 Dose: Not Given Sodium Chloride (Flush - Normal Saline) 10 ml IVF PRN PRN PRN Reason: Saline Flush Zolpidem Tartrate (Ambien) 5 mg PO HSPRN PRN PRN Reason: Insomnia
[2018-09-19] MEDS: Simvastatin 20 MG TAB PO SCH (21:43)
[2018-09-19] MEDS: Citalopram 20 MG TAB PO SCH (21:43)
[2018-09-19] MEDS: Amlodipine 5 MG TAB PO SCH (21:44)
[2018-09-19] MEDS: Aspirin Chewable 81 MG TAB PO SCH (21:44)
--- NOTE | 2018-09-20 04:10 | PDOC.PN ---
- Subjective Encounter Start Date: 09/18/18 Encounter Start Time: 12:30 Subjective: pt up in chair no complains - Objective Vital Signs & Weight: Vital Signs (12 hours) Temp Pulse Resp BP BP Pulse Ox 09/19/18 23:02 98.3 F 73 16 151/73 H 93 L 09/19/18 21:44 82 123/68 09/19/18 20:21 98.2 F 82 16 123/68 94 L 09/19/18 20:05 94 L Weight Admit Weight 178 lb Weight 178 lb I&O: 09/18/18 09/19/18 09/20/18 06:59 06:59 06:59 Intake Total 2380 1200 Output Total 3800 3500 2100 Balance -1420 -2300 -2100 Result Diagrams: 09/18/18 04:14 Phys Exam - Physical Examination Neck: no nodes, no JVD, supple, full ROM Respiratory: no wheezing, no rales, no rhonchi, wheezing present, clear to auscultation bilateral Cardiovascular: RRR, no significant murmur, no rub, gallop, irregular Gastrointestinal: soft, non-tender, no distention, positive bowel sounds Dx/Plan (1) CAD (coronary artery disease) Code(s): I25.10 - ATHSCL HEART DISEASE OF [place] CORONARY ARTERY W/O ANG PCTRS Status: Chronic Qualifiers: Comment: stable (2) Hypertension Code(s): I10 - ESSENTIAL (PRIMARY) HYPERTENSION Status: Chronic Qualifiers: Comment: controlled, add PRN IV hydralazine for blood pressure spikes. (3) Hypothyroidism Code(s): E03.9 - HYPOTHYROIDISM, UNSPECIFIED Status: Chronic Qualifiers: Comment: continue synthroid - Plan will continue current treatment, she will get a brace for her right knee -: pt encouraged to use IS * . Review of Systems - Review of Systems Respiratory: negative: Cough, Dry, Shortness of Breath, Hemoptysis, SOB with Excertion, Pleuritic Pain, Sputum, Wheezing Cardiovascular: negative: chest pain, palpitations, orthopnea, paroxysmal nocturnal dyspnea, edema, light headedness, other - Medications/Allergies Allergies/Adverse Reactions: Allergies Allergy/AdvReac Type Severity Reaction Status Date / Time bacitracin Allergy Verified 09/10/18 08:55 [From Neosporin ([id number])] lactase [From Lactaid] Allergy Verified 09/10/18 08:55 metronidazole [From Flagyl] Allergy Verified 09/10/18 08:55 Milk Containing Products Allergy Verified 09/10/18 08:55 neomycin Allergy Verified 09/10/18 08:55 [From Neosporin ([id number])] polymyxin B Allergy Verified 09/10/18 08:55 [From Neosporin ([id number])] cephalexin monohydrate AdvReac Intermediate NAUSEA/ Verified 09/10/18 08:55 [From Keflex] tramadol AdvReac Intermediate NAUSEA/VOMI Verified 09/10/18 08:55 TING Medications: Current Medications Acetaminophen (Tylenol) 650 mg PO Q4H PRN PRN Reason: Headache/Fever or Pain Last Admin: 09/19/18 21:44 Dose: 650 mg Acetaminophen/Codeine Phosphate (Tylenol #3) 1 tab PO Q4H PRN PRN Reason: Moderate Pain (4-7) Last Admin: 09/19/18 21:44 Dose: 1 tab Acetaminophen/Codeine Phosphate (Tylenol #3) 2 tab PO Q4H PRN PRN Reason: Severe Pain (8-10) Hydrocodone Bitart/Acetaminophen ([place] 10/325) 1 tab PO Q4H PRN PRN Reason: Pain (1-3) Hydrocodone Bitart/Acetaminophen ([place] 10/325) 2 tab PO Q4H PRN PRN Reason: PAIN (4-6) Last Admin: 09/17/18 13:44 Dose: 2 tab Albuterol Sulfate (Proventil Hfa) 2 puff INH Q6H PRN PRN Reason: SOB &/or Wheezing Last Admin: 09/19/18 12:23 Dose: 2 puff Amlodipine Besylate (Norvasc) 5 mg PO QPM [facility] Last Admin: 09/19/18 21:44 Dose: 5 mg Aspirin (Aspirin Chewable) 81 mg PO HS [facility] Last Admin: 09/19/18 21:44 Dose: 81 mg Cholecalciferol (Vitamin D3) 2,000 units PO DAILY [facility] Last Admin: 09/19/18 09:54 Dose: 2,000 units Citalopram Hydrobromide (Celexa) 20 mg PO HS [facility] Last Admin: 09/19/18 21:43 Dose: 20 mg Coenzyme Q10 (Coenzyme Q10) 100 mg PO DAILY [facility] Last Admin: 09/19/18 09:54 Dose: 100 mg Cyanocobalamin (Vitamin B-12) 1,000 mcg PO DAILY [facility] Last Admin: 09/19/18 09:55 Dose: 1,000 mcg Dicyclomine HCl (Bentyl) 10 mg PO DAILY PRN PRN Reason: abdominal cramps Diphenhydramine HCl (Benadryl) 25 mg PO Q6H PRN PRN Reason: Itching Fentanyl (Sublimaze) 50 mcg SLOW IVP Q1H PRN PRN Reason: Breakthrough Pain Ferrous Gluconate (Fergon) 324 mg PO BID [facility] Last Admin: 09/19/18 21:43 Dose: 324 mg Hydralazine HCl (Apresoline) 10 mg SLOW IVP Q6H PRN PRN Reason: SBP Greater Than 170 Ropivacaine 250 ml/ Device 250 mls @ 10 mls/hr NERVE BLCK INF [facility] Last Admin: 09/18/18 19:25 Dose: 250 mls Iron/Minerals/Multivitamins (Theragran M) 1 tab PO DAILY [facility] Last Admin: 09/19/18 09:54 Dose: 1 tab Levothyroxine Sodium (Synthroid) 125 mcg PO 0600 [facility] Last Admin: 09/19/18 06:30 Dose: 125 mcg Loperamide HCl (Imodium) 2 mg PO PRN PRN PRN Reason: Diarrhea/Loose Stools Losartan Potassium (Cozaar) 100 mg PO QAM [facility] Last Admin: 09/19/18 09:53 Dose: 100 mg Methocarbamol (Robaxin) 750 mg PO Q4H PRN PRN Reason: Muscle Spasms/ Pain Ondansetron HCl (Zofran) 4 mg IVP Q6H PRN PRN Reason: Nausea/Vomiting Pantoprazole Sodium (Protonix) 40 mg PO DAILY [facility] Last Admin: 09/19/18 09:54 Dose: 40 mg Promethazine HCl (Phenergan) 12.5 mg IM Q4H PRN PRN Reason: Nausea/Vomiting Senna/Docusate Sodium (Senokot S) 2 tab PO BID [facility] Last Admin: 09/19/18 21:44 Dose: 2 tab Simvastatin (Zocor) 10 mg PO HS [facility] Last Admin: 09/19/18 21:43 Dose: 10 mg Sodium Chloride (Flush - Normal Saline) 10 ml IVF PRN PRN PRN Reason: Saline Flush Zolpidem Tartrate (Ambien) 5 mg PO HSPRN PRN PRN Reason: Insomnia
[2018-09-20] MEDS: Acetaminophen/Codeine 30-300mg Tablet PO PRN ×3 (05:23→21:55)
[2018-09-20] MEDS: Acetaminophen 325 MG TAB PO PRN ×3 (05:23→21:55)
[2018-09-20] MEDS: Levothyroxine Sodium 125 MCG TAB PO SCH (05:23)
[2018-09-20] MEDS: Ubidecarenone 50 MG CAP PO SCH (08:40)
[2018-09-20] MEDS: Multivitamin W/ Minerals 1 TAB PO SCH (08:40)
[2018-09-20] MEDS: Ferrous Gluconate 324 MG TAB PO SCH ×2 (08:40→21:51)
[2018-09-20] MEDS: Cyanocobalamin (Vitamin B-12) 1,000 MCG TAB PO SCH (08:40)
[2018-09-20] MEDS: Losartan 25 MG TAB PO SCH (08:41)
[2018-09-20] MEDS: Senokot S 8.6-50 MG TAB PO SCH ×2 (08:44→21:50)
--- NOTE | 2018-09-20 13:29 | PDOC.PN ---
- Subjective Encounter Start Date: 09/20/18 Encounter Start Time: 08:00 Pt seen for followup re: hypertension. No complaints today. - Objective MAR Reviewed: Yes Vital Signs & Weight: Vital Signs (12 hours) Temp Pulse Resp BP Pulse Ox 09/20/18 11:38 97.3 F L 74 16 149/70 H 97 09/20/18 08:10 97.9 F 68 14 145/71 H 98 09/20/18 04:50 97.9 F 67 16 132/71 Weight Admit Weight 178 lb Weight 178 lb I&O: 09/19/18 09/20/18 09/21/18 06:59 06:59 06:59 Intake Total 1200 Output Total 3500 2100 Balance -2300 -2100 Result Diagrams: 09/18/18 04:14 Additional Labs: labs reviewed by me Phys Exam - Physical Examination Constitutional: NAD HEENT: moist MMs Neck: supple Respiratory: no wheezing Cardiovascular: no rub Gastrointestinal: non-tender Neurological: moves all 4 limbs Psychiatric: normal affect Dx/Plan (1) Hypertension Code(s): I10 - ESSENTIAL (PRIMARY) HYPERTENSION Status: Chronic Qualifiers: Comment: reasonably controlled (2) CAD (coronary artery disease) Code(s): I25.10 - ATHSCL HEART DISEASE OF [place] CORONARY ARTERY W/O ANG PCTRS Status: Chronic Qualifiers: Comment: stable (3) COPD (chronic obstructive pulmonary disease) Status: Chronic Qualifiers: COPD type: chronic bronchitis Comment: stable (4) Hypothyroidism Code(s): E03.9 - HYPOTHYROIDISM, UNSPECIFIED Status: Chronic Qualifiers: Comment: on synthroid (5) Dyslipidemia Code(s): E78.5 - HYPERLIPIDEMIA, UNSPECIFIED Status: Chronic Comment: on Zocor - Plan * . Review of Systems - Review of Systems Respiratory: negative: Cough, Shortness of Breath, SOB with Excertion, Pleuritic Pain, Wheezing Cardiovascular: negative: chest pain, palpitations, orthopnea, paroxysmal nocturnal dyspnea, edema, light headedness - Medications/Allergies Allergies/Adverse Reactions: Allergies Allergy/AdvReac Type Severity Reaction Status Date / Time bacitracin Allergy Verified 09/10/18 08:55 [From Neosporin ([id number])] lactase [From Lactaid] Allergy Verified 09/10/18 08:55 metronidazole [From Flagyl] Allergy Verified 09/10/18 08:55 Milk Containing Products Allergy Verified 09/10/18 08:55 neomycin Allergy Verified 09/10/18 08:55 [From Neosporin ([id number])] polymyxin B Allergy Verified 09/10/18 08:55 [From Neosporin ([id number])] cephalexin monohydrate AdvReac Intermediate NAUSEA/ Verified 09/10/18 08:55 [From Keflex] tramadol AdvReac Intermediate NAUSEA/VOMI Verified 09/10/18 08:55 TING Medications: Current Medications Acetaminophen (Tylenol) 650 mg PO Q4H PRN PRN Reason: Headache/Fever or Pain Last Admin: 09/20/18 13:21 Dose: 650 mg Acetaminophen/Codeine Phosphate (Tylenol #3) 1 tab PO Q4H PRN PRN Reason: Moderate Pain (4-7) Last Admin: 09/20/18 13:21 Dose: 1 tab Acetaminophen/Codeine Phosphate (Tylenol #3) 2 tab PO Q4H PRN PRN Reason: Severe Pain (8-10) Hydrocodone Bitart/Acetaminophen ([place] 10/325) 1 tab PO Q4H PRN PRN Reason: Pain (1-3) Hydrocodone Bitart/Acetaminophen ([place] 10/325) 2 tab PO Q4H PRN PRN Reason: PAIN (4-6) Last Admin: 09/17/18 13:44 Dose: 2 tab Albuterol Sulfate (Proventil Hfa) 2 puff INH Q6H PRN PRN Reason: SOB &/or Wheezing Last Admin: 09/19/18 12:23 Dose: 2 puff Amlodipine Besylate (Norvasc) 5 mg PO QPM [facility] Last Admin: 09/19/18 21:44 Dose: 5 mg Aspirin (Aspirin Chewable) 81 mg PO HS [facility] Last Admin: 09/19/18 21:44 Dose: 81 mg Cholecalciferol (Vitamin D3) 2,000 units PO DAILY [facility] Last Admin: 09/20/18 08:40 Dose: 2,000 units Citalopram Hydrobromide (Celexa) 20 mg PO HS [facility] Last Admin: 09/19/18 21:43 Dose: 20 mg Coenzyme Q10 (Coenzyme Q10) 100 mg PO DAILY [facility] Last Admin: 09/20/18 08:40 Dose: 100 mg Cyanocobalamin (Vitamin B-12) 1,000 mcg PO DAILY [facility] Last Admin: 09/20/18 08:40 Dose: 1,000 mcg Dicyclomine HCl (Bentyl) 10 mg PO DAILY PRN PRN Reason: abdominal cramps Diphenhydramine HCl (Benadryl) 25 mg PO Q6H PRN PRN Reason: Itching Fentanyl (Sublimaze) 50 mcg SLOW IVP Q1H PRN PRN Reason: Breakthrough Pain Ferrous Gluconate (Fergon) 324 mg PO BID [facility]CLUD[facility] Last Admin: 09/20/18 08:40 Dose: 324 mg Hydralazine HCl (Apresoline) 10 mg SLOW IVP Q6H PRN PRN Reason: SBP Greater Than 170 Ropivacaine 250 ml/ Device 250 mls @ 10 mls/hr NERVE BLCK INF COUNT INCLUDES [facility] Last Admin: 09/18/18 19:25 Dose: 250 mls Iron/Minerals/Multivitamins (Theragran M) 1 tab PO DAILY [facility] Last Admin: 09/20/18 08:40 Dose: 1 tab Levothyroxine Sodium (Synthroid) 125 mcg PO 0600 [facility]CLUD[facility] Last Admin: 09/20/18 05:23 Dose: 125 mcg Loperamide HCl (Imodium) 2 mg PO PRN PRN PRN Reason: Diarrhea/Loose Stools Losartan Potassium (Cozaar) 100 mg PO QAM COUNT [facility]CLUDES [facility] Last Admin: 09/20/18 08:41 Dose: 100 mg Methocarbamol (Robaxin) 750 mg PO Q4H PRN PRN Reason: Muscle Spasms/ Pain Ondansetron HCl (Zofran) 4 mg IVP Q6H PRN PRN Reason: Nausea/Vomiting Pantoprazole Sodium (Protonix) 40 mg PO DAILY COUNT [facility]CLUDES [facility] Last Admin: 09/20/18 08:40 Dose: 40 mg Promethazine HCl (Phenergan) 12.5 mg IM Q4H PRN PRN Reason: Nausea/Vomiting Senna/Docusate Sodium (Senokot S) 2 tab PO BID COUNT [facility]CLUDES [facility] Last Admin: 09/20/18 08:44 Dose: Not Given Simvastatin (Zocor) 10 mg PO HS COUNT [facility]CLUDES [facility] Last Admin: 09/19/18 21:43 Dose: 10 mg Sodium Chloride (Flush - Normal Saline) 10 ml IVF PRN PRN PRN Reason: Saline Flush Zolpidem Tartrate (Ambien) 5 mg PO HSPRN PRN PRN Reason: Insomnia
[2018-09-20] MEDS: PROVENTIL INHALER 6.7 G (200 INHALATIONS) INH PRN (14:25)
[2018-09-20] MEDS: Amlodipine 5 MG TAB PO SCH (21:50)
[2018-09-20] MEDS: Simvastatin 20 MG TAB PO SCH (21:50)
[2018-09-20] MEDS: Citalopram 20 MG TAB PO SCH (21:50)
[2018-09-20] MEDS: Aspirin Chewable 81 MG TAB PO SCH (21:50)
[2018-09-21] MEDS: Levothyroxine Sodium 125 MCG TAB PO SCH (06:10)
[2018-09-21] MEDS: Senokot S 8.6-50 MG TAB PO SCH ×2 (08:30→20:53)
[2018-09-21] MEDS: Ubidecarenone 50 MG CAP PO SCH (08:31)
[2018-09-21] MEDS: Multivitamin W/ Minerals 1 TAB PO SCH (08:32)
[2018-09-21] MEDS: Ferrous Gluconate 324 MG TAB PO SCH ×2 (08:32→20:53)
[2018-09-21] MEDS: Cyanocobalamin (Vitamin B-12) 1,000 MCG TAB PO SCH (08:32)
[2018-09-21] MEDS: Losartan 25 MG TAB PO SCH (08:32)
[2018-09-21] MEDS: Acetaminophen/Codeine 30-300mg Tablet PO PRN ×4 (09:38→23:31)
--- NOTE | 2018-09-21 09:46 | PRG ---
DATE OF SERVICE: 09/21/2018 SUBJECTIVE: Alysia is an 88-year-old female, who is postop day 5 from a left total knee arthroplasty. Her ambulatory efforts improved to 120 feet. OBJECTIVE: VITAL SIGNS: Temperature 98.2, pulse 73, respiratory rate 16, O2 saturation is 96% on room air, and blood pressure 154/78. GENERAL: She is alert and oriented to person, place, time, situation, grossly nonfocal. Responsive and appropriate with examiner. EXTREMITIES: Incision is clean and closed. No erythema. She is neurovascularly intact. IMPRESSION: An 88-year-old female, postop day 5, left total knee arthroplasty. Placement [facility] with [facility]. We will recheck the patient tomorrow. Job ID: [id number]
--- NOTE | 2018-09-21 18:10 | PDOC.PN ---
- Subjective Encounter Start Date: 09/21/18 Encounter Start Time: 08:20 Pt seen for followup re: hypertension. Knee pain is better, no complaints. - Objective MAR Reviewed: Yes Vital Signs & Weight: Vital Signs (12 hours) Temp Pulse Resp BP Pulse Ox 09/21/18 15:36 98.0 F 76 16 148/68 H 97 09/21/18 11:40 98.1 F 78 15 160/69 H 96 09/21/18 08:00 96 09/21/18 07:31 98.5 F 79 16 154/78 H 96 Weight Admit Weight 178 lb Weight 178 lb I&O: 09/20/18 09/21/18 09/22/18 06:59 06:59 06:59 Intake Total 1200 Output Total 2100 Balance -2099 1200 Result Diagrams: 09/18/18 04:14 Phys Exam - Physical Examination Constitutional: NAD HEENT: moist MMs Neck: supple Respiratory: no wheezing Cardiovascular: no rub Gastrointestinal: soft s/p L knee surgery Neurological: moves all 4 limbs Psychiatric: normal affect Dx/Plan (1) Hypertension Code(s): I10 - ESSENTIAL (PRIMARY) HYPERTENSION Status: Chronic Qualifiers: Comment: reasonably controlled, pt has PRN IV hydralazine if needed (2) CAD (coronary artery disease) Code(s): I25.10 - ATHSCL HEART DISEASE OF [place] CORONARY ARTERY W/O ANG PCTRS Status: Chronic Qualifiers: Comment: stable (3) COPD (chronic obstructive pulmonary disease) Status: Chronic Qualifiers: COPD type: chronic bronchitis Comment: stable (4) Hypothyroidism Code(s): E03.9 - HYPOTHYROIDISM, UNSPECIFIED Status: Chronic Qualifiers: Comment: on synthroid (5) Dyslipidemia Code(s): E78.5 - HYPERLIPIDEMIA, UNSPECIFIED Status: Chronic Comment: on Zocor - Plan * . Awaiting SNU bed Review of Systems - Review of Systems Cardiovascular: negative: chest pain, palpitations, orthopnea, paroxysmal nocturnal dyspnea, edema, light headedness Gastrointestinal: negative: Nausea, Vomiting, Abdominal Pain, Diarrhea, Constipation, Melena, Hematochezia - Medications/Allergies Allergies/Adverse Reactions: Allergies Allergy/AdvReac Type Severity Reaction Status Date / Time bacitracin Allergy Verified 09/10/18 08:55 [From Neosporin ([id number])] lactase [From Lactaid] Allergy Verified 09/10/18 08:55 metronidazole [From Flagyl] Allergy Verified 09/10/18 08:55 Milk Containing Products Allergy Verified 09/10/18 08:55 neomycin Allergy Verified 09/10/18 08:55 [From Neosporin ([id number])] polymyxin B Allergy Verified 09/10/18 08:55 [From Neosporin ([id number])] cephalexin monohydrate AdvReac Intermediate NAUSEA/ Verified 09/10/18 08:55 [From Keflex] tramadol AdvReac Intermediate NAUSEA/VOMI Verified 09/10/18 08:55 TING Medications: Current Medications Acetaminophen (Tylenol) 650 mg PO Q4H PRN PRN Reason: Headache/Fever or Pain Last Admin: 09/20/18 21:55 Dose: 650 mg Acetaminophen/Codeine Phosphate (Tylenol #3) 1 tab PO Q4H PRN PRN Reason: Moderate Pain (4-7) Last Admin: 09/21/18 13:22 Dose: 1 tab Acetaminophen/Codeine Phosphate (Tylenol #3) 2 tab PO Q4H PRN PRN Reason: Severe Pain (8-10) Hydrocodone Bitart/Acetaminophen ([place] 10/325) 1 tab PO Q4H PRN PRN Reason: Pain (1-3) Hydrocodone Bitart/Acetaminophen ([place] 10/325) 2 tab PO Q4H PRN PRN Reason: PAIN (4-6) Last Admin: 09/17/18 13:44 Dose: 2 tab Albuterol Sulfate (Proventil Hfa) 2 puff INH Q6H PRN PRN Reason: SOB &/or Wheezing Last Admin: 09/20/18 14:25 Dose: 2 puff Amlodipine Besylate (Norvasc) 5 mg PO QPM [facility] Last Admin: 09/20/18 21:50 Dose: 5 mg Aspirin (Aspirin Chewable) [address] [facility] Last Admin: 09/20/18 21:50 Dose: 81 mg Cholecalciferol (Vitamin D3) 2,000 units PO DAILY [facility] Last Admin: 09/21/18 08:32 Dose: 2,000 units Citalopram Hydrobromide (Celexa) 20 mg PO HS [facility] Last Admin: 09/20/18 21:50 Dose: 20 mg Coenzyme Q10 (Coenzyme Q10) 100 mg PO DAILY [facility] Last Admin: 09/21/18 08:31 Dose: 100 mg Cyanocobalamin (Vitamin B-12) 1,000 mcg PO DAILY [facility] Last Admin: 09/21/18 08:32 Dose: 1,000 mcg Dicyclomine HCl (Bentyl) 10 mg PO DAILY PRN PRN Reason: abdominal cramps Diphenhydramine HCl (Benadryl) 25 mg PO Q6H PRN PRN Reason: Itching Fentanyl (Sublimaze) 50 mcg SLOW IVP Q1H PRN PRN Reason: Breakthrough Pain Ferrous Gluconate (Fergon) 324 mg PO BID [facility] Last Admin: 09/21/18 08:32 Dose: 324 mg Hydralazine HCl (Apresoline) 10 mg SLOW IVP Q6H PRN PRN Reason: SBP Greater Than 170 Ropivacaine 250 ml/ Device 250 mls @ 10 mls/hr NERVE BLCK INF [facility] Last Admin: 09/18/18 19:25 Dose: 250 mls Iron/Minerals/Multivitamins (Theragran M) 1 tab PO DAILY [facility] Last Admin: 09/21/18 08:32 Dose: 1 tab Levothyroxine Sodium (Synthroid) 125 mcg PO 0600 [facility] Last Admin: 09/21/18 06:10 Dose: 125 mcg Loperamide HCl (Imodium) 2 mg PO PRN PRN PRN Reason: Diarrhea/Loose Stools Losartan Potassium (Cozaar) 100 mg PO QAM [facility] Last Admin: 09/21/18 08:32 Dose: 100 mg Methocarbamol (Robaxin) 750 mg PO Q4H PRN PRN Reason: Muscle Spasms/ Pain Ondansetron HCl (Zofran) 4 mg IVP Q6H PRN PRN Reason: Nausea/Vomiting Pantoprazole Sodium (Protonix) 40 mg PO DAILY [facility] Last Admin: 09/21/18 08:32 Dose: 40 mg Promethazine HCl (Phenergan) 12.5 mg IM Q4H PRN PRN Reason: Nausea/Vomiting Senna/Docusate Sodium (Senokot S) 2 tab PO BID [facility] Last Admin: 09/21/18 08:30 Dose: 2 tab Simvastatin (Zocor) 10 mg PO HS [facility] Last Admin: 09/20/18 21:50 Dose: 10 mg Sodium Chloride (Flush - Normal Saline) 10 ml IVF PRN PRN PRN Reason: Saline Flush Zolpidem Tartrate (Ambien) 5 mg PO HSPRN PRN PRN Reason: Insomnia
[2018-09-21] MEDS: Citalopram 20 MG TAB PO SCH (20:52)
[2018-09-21] MEDS: Aspirin Chewable 81 MG TAB PO SCH (20:52)
[2018-09-21] MEDS: Amlodipine 5 MG TAB PO SCH (20:52)
[2018-09-21] MEDS: Simvastatin 20 MG TAB PO SCH (20:53)
[2018-09-21] MEDS: Dicyclomine 10 MG CAP PO PRN (21:09)
[2018-09-22] MEDS: Levothyroxine Sodium 125 MCG TAB PO SCH (05:37)
[2018-09-22] MEDS: Acetaminophen/Codeine 30-300mg Tablet PO PRN ×4 (05:40→20:48)
[2018-09-22] MEDS: Ferrous Gluconate 324 MG TAB PO SCH ×2 (08:34→20:53)
[2018-09-22] MEDS: Ubidecarenone 50 MG CAP PO SCH (08:34)
[2018-09-22] MEDS: Senokot S 8.6-50 MG TAB PO SCH ×2 (08:35→20:47)
[2018-09-22] MEDS: Multivitamin W/ Minerals 1 TAB PO SCH (08:35)
[2018-09-22] MEDS: Losartan 25 MG TAB PO SCH (08:36)
[2018-09-22] MEDS: Cyanocobalamin (Vitamin B-12) 1,000 MCG TAB PO SCH (08:37)
--- NOTE | 2018-09-22 18:35 | PDOC.PN ---
- Subjective Encounter Start Date: 09/22/18 Encounter Start Time: 09:20 Pt seen for followup re: hypertension. No complaints today. - Objective MAR Reviewed: Yes Vital Signs & Weight: Vital Signs (12 hours) Temp Pulse Resp BP Pulse Ox 09/22/18 15:27 97.6 F 71 16 170/70 H 98 09/22/18 11:42 97.6 F 68 18 177/69 H 96 09/22/18 08:03 98.3 F 74 18 148/69 H 99 Weight Admit Weight 178 lb Weight 178 lb I&O: 09/21/18 09/22/18 09/23/18 06:59 06:59 06:59 Intake Total 2160 Balance 2160 Result Diagrams: 09/18/18 04:14 Additional Labs: Labs reviewed by me Phys Exam - Physical Examination Constitutional: NAD HEENT: moist MMs Neck: supple Respiratory: clear to auscultation bilateral Cardiovascular: RRR Gastrointestinal: soft Neurological: moves all 4 limbs Psychiatric: normal affect Dx/Plan (1) Hypertension Code(s): I10 - ESSENTIAL (PRIMARY) HYPERTENSION Status: Chronic Qualifiers: Comment: Continue PRN IV hydralazine (2) CAD (coronary artery disease) Code(s): I25.10 - ATHSCL HEART DISEASE OF [place] CORONARY ARTERY W/O ANG PCTRS Status: Chronic Qualifiers: Comment: stable (3) COPD (chronic obstructive pulmonary disease) Status: Chronic Qualifiers: COPD type: chronic bronchitis Comment: stable (4) Hypothyroidism Code(s): E03.9 - HYPOTHYROIDISM, UNSPECIFIED Status: Chronic Qualifiers: Comment: on synthroid (5) Dyslipidemia Code(s): E78.5 - HYPERLIPIDEMIA, UNSPECIFIED Status: Chronic Comment: on Zocor - Plan * . Awaiting Swing bed Review of Systems - Review of Systems Respiratory: negative: Cough, Shortness of Breath, SOB with Excertion, Pleuritic Pain, Wheezing Neurological: negative: Weakness, Numbness, Incoordination, Change in Speech, Confusion, Seizures - Medications/Allergies Allergies/Adverse Reactions: Allergies Allergy/AdvReac Type Severity Reaction Status Date / Time bacitracin Allergy Verified 09/10/18 08:55 [From Neosporin ([id number])] lactase [From Lactaid] Allergy Verified 09/10/18 08:55 metronidazole [From Flagyl] Allergy Verified 09/10/18 08:55 Milk Containing Products Allergy Verified 09/10/18 08:55 neomycin Allergy Verified 09/10/18 08:55 [From Neosporin ([id number])] polymyxin B Allergy Verified 09/10/18 08:55 [From Neosporin ([id number])] cephalexin monohydrate AdvReac Intermediate NAUSEA/ Verified 09/10/18 08:55 [From Keflex] tramadol AdvReac Intermediate NAUSEA/VOMI Verified 09/10/18 08:55 TING Medications: Current Medications Acetaminophen (Tylenol) 650 mg PO Q4H PRN PRN Reason: Headache/Fever or Pain Last Admin: 09/20/18 21:55 Dose: 650 mg Acetaminophen/Codeine Phosphate (Tylenol #3) 1 tab PO Q4H PRN PRN Reason: Moderate Pain (4-7) Last Admin: 09/21/18 18:28 Dose: 1 tab Acetaminophen/Codeine Phosphate (Tylenol #3) 2 tab PO Q4H PRN PRN Reason: Severe Pain (8-10) Last Admin: 09/22/18 15:13 Dose: 2 tab Hydrocodone Bitart/Acetaminophen ([place] 10/325) 1 tab PO Q4H PRN PRN Reason: Pain (1-3) Hydrocodone Bitart/Acetaminophen ([place] 10/325) 2 tab PO Q4H PRN PRN Reason: PAIN (4-6) Last Admin: 09/17/18 13:44 Dose: 2 tab Albuterol Sulfate (Proventil Hfa) 2 puff INH Q6H PRN PRN Reason: SOB &/or Wheezing Last Admin: 09/20/18 14:25 Dose: 2 puff Amlodipine Besylate (Norvasc) 5 mg PO QPM [facility] Last Admin: 09/21/18 20:52 Dose: 5 mg Aspirin (Aspirin Chewable) 81 mg PO HS [facility] Last Admin: 09/21/18 20:52 Dose: 81 mg Cholecalciferol (Vitamin D3) 2,000 units PO DAILY [facility] Last Admin: 09/22/18 08:36 Dose: 2,000 units Citalopram Hydrobromide (Celexa) 20 mg PO HS [facility] Last Admin: 09/21/18 20:52 Dose: 20 mg Coenzyme Q10 (Coenzyme Q10) 100 mg PO DAILY [facility] Last Admin: 09/22/18 08:34 Dose: 100 mg Cyanocobalamin (Vitamin B-12) 1,000 mcg PO DAILY [facility] Last Admin: 09/22/18 08:37 Dose: 1,000 mcg Dicyclomine HCl (Bentyl) 10 mg PO DAILY PRN PRN Reason: abdominal cramps Last Admin: 09/21/18 21:09 Dose: 10 mg Diphenhydramine HCl (Benadryl) 25 mg PO Q6H PRN PRN Reason: Itching Fentanyl (Sublimaze) 50 mcg SLOW IVP Q1H PRN PRN Reason: Breakthrough Pain Ferrous Gluconate (Fergon) 324 mg PO BID [facility] Last Admin: 09/22/18 08:34 Dose: 324 mg Hydralazine HCl (Apresoline) 10 mg SLOW IVP Q6H PRN PRN Reason: SBP Greater Than 170 Ropivacaine 250 ml/ Device 250 mls @ 10 mls/hr NERVE BLCK INF [facility] Last Admin: 09/18/18 19:25 Dose: 250 mls Iron/Minerals/Multivitamins (Theragran M) 1 tab PO DAILY [facility] Last Admin: 09/22/18 08:35 Dose: 1 tab Levothyroxine Sodium (Synthroid) 125 mcg PO 0600 [facility] Last Admin: 09/22/18 05:37 Dose: 125 mcg Loperamide HCl (Imodium) 2 mg PO PRN PRN PRN Reason: Diarrhea/Loose Stools Losartan Potassium (Cozaar) 100 mg PO QAM [facility] Last Admin: 09/22/18 08:36 Dose: 100 mg Methocarbamol (Robaxin) 750 mg PO Q4H PRN PRN Reason: Muscle Spasms/ Pain Ondansetron HCl (Zofran) 4 mg IVP Q6H PRN PRN Reason: Nausea/Vomiting Pantoprazole Sodium (Protonix) 40 mg PO DAILY [facility] Last Admin: 09/22/18 08:36 Dose: 40 mg Promethazine HCl (Phenergan) 12.5 mg IM Q4H PRN PRN Reason: Nausea/Vomiting Senna/Docusate Sodium (Senokot S) 2 tab PO BID [facility] Last Admin: 09/22/18 08:35 Dose: 2 tab Simvastatin (Zocor) 10 mg PO HS [facility] Last Admin: 09/21/18 20:53 Dose: 10 mg Sodium Chloride (Flush - Normal Saline) 10 ml IVF PRN PRN PRN Reason: Saline Flush Zolpidem Tartrate (Ambien) 5 mg PO HSPRN PRN PRN Reason: Insomnia
[2018-09-22] MEDS: Amlodipine 5 MG TAB PO SCH (20:47)
[2018-09-22] MEDS: Aspirin Chewable 81 MG TAB PO SCH (20:47)
[2018-09-22] MEDS: Citalopram 20 MG TAB PO SCH (20:47)
[2018-09-22] MEDS: Simvastatin 20 MG TAB PO SCH (20:48)
[2018-09-22] MEDS: Dicyclomine 10 MG CAP PO PRN (20:53)
[2018-09-23] MEDS: Levothyroxine Sodium 125 MCG TAB PO SCH (05:25)
[2018-09-23] MEDS: Acetaminophen/Codeine 30-300mg Tablet PO PRN ×5 (05:25→21:25)
[2018-09-23] MEDS: Losartan 25 MG TAB PO SCH (09:37)
[2018-09-23] MEDS: Multivitamin W/ Minerals 1 TAB PO SCH (09:37)
[2018-09-23] MEDS: Ubidecarenone 50 MG CAP PO SCH (09:37)
[2018-09-23] MEDS: Cyanocobalamin (Vitamin B-12) 1,000 MCG TAB PO SCH (09:38)
[2018-09-23] MEDS: Ferrous Gluconate 324 MG TAB PO SCH ×2 (09:38→21:23)
[2018-09-23] MEDS: Senokot S 8.6-50 MG TAB PO SCH ×2 (09:38→21:22)
--- NOTE | 2018-09-23 13:44 | PRG ---
DATE OF SERVICE: 09/22/2018 SUBJECTIVE: Alysia is now postop day #6 from a left total knee arthroplasty. She has been improving over the last few days with ambulatory efforts up to about 250 feet. She was declined for inpatient rehabilitation. OBJECTIVE: VITAL SIGNS: Stable. She is afebrile. GENERAL: She is alert and oriented to person, place, time, situation, and looks much better today. There is no confusion notable. EXTREMITIES: Incision is clean and without any erythema. She is neurovascularly intact. ASSESSMENT: An 88-year-old female, postoperative day #6, left total knee arthroplasty, doing well. PLAN: Continue current care. Disposition to either skilled facility tomorrow or discharge to home. Job ID: [id number]
[2018-09-23] MEDS: Simvastatin 20 MG TAB PO SCH (21:21)
[2018-09-23] MEDS: Aspirin Chewable 81 MG TAB PO SCH (21:22)
[2018-09-23] MEDS: Amlodipine 5 MG TAB PO SCH (21:22)
[2018-09-23] MEDS: Citalopram 20 MG TAB PO SCH (21:23)
[2018-09-24] MEDS: Acetaminophen/Codeine 30-300mg Tablet PO PRN ×2 (06:16→11:34)
[2018-09-24] MEDS: Levothyroxine Sodium 125 MCG TAB PO SCH (06:17)
[2018-09-24] MEDS: Ubidecarenone 50 MG CAP PO SCH (09:05)
[2018-09-24] MEDS: Losartan 25 MG TAB PO SCH (09:05)
[2018-09-24] MEDS: Senokot S 8.6-50 MG TAB PO SCH (09:06)
[2018-09-24] MEDS: Ferrous Gluconate 324 MG TAB PO SCH (09:06)
[2018-09-24] MEDS: Cyanocobalamin (Vitamin B-12) 1,000 MCG TAB PO SCH (09:06)
[2018-09-24] MEDS: Multivitamin W/ Minerals 1 TAB PO SCH (09:06)
[2018-09-24 10:55] VITALS: BP 185/64; TEMP 98.1
[2018-09-24] MEDS: Dicyclomine 10 MG CAP PO PRN (11:36)
== END 2018-09-24 12:23 | disposition home or self-care (01) | DRG 470 ==
LOC: SDC 10:14 → SJJU 13:34
PROVIDERS: ADMIT Orthopaedic Surgery; ATTEND Orthopaedic Surgery
PROC: 0SRD0J9 Replacement of Left Knee Joint with Synthetic Substitute, Cemented, Open Approach (ICD-10-PCS; principal; 2018-09-16)
DX: M17.12 Unilateral primary osteoarthritis, left knee (principal); I25.10 Atherosclerotic heart disease of native coronary artery without angina pectoris; I10 Essential (primary) hypertension; E03.9 Hypothyroidism, unspecified; J44.9 Chronic obstructive pulmonary disease, unspecified; E78.5 Hyperlipidemia, unspecified
CPT/HCPCS: 36415; 85027; 94664; C1713; C1776; J0690; J2001; J2250; J2405; J2704; J2795; J3010; J3370; J3490; J7050

== ENCOUNTER 2019-01-27 06:12 | Outpatient (CLI) | payer MEDICARE ==
[2019-01-27 11:34] LABS: #Basophils 0.1 thou/uL (0.0-0.2); #Eosinphils 0.1 thou/uL (0.0-0.7); #Lymphocytes 2.3 thou/uL (1.20-3.40); #Monocytes 0.3 thou/uL (0.11-0.59); #Neutrophils 4.9 thou/uL (1.40-6.50); %Basophils 1.1 % (0.0-1.0); %Eosinophils 0.8 % (0.0-10.0); %Lymphocytes 30.5 % (21.0-51.0); %Monocytes 4.4 % (0.0-10.0); %Neutrophils 63.3 % (42.0-75.0); Hemoglobin 13.3 g/dL (12.0-16.0); Mean Corpuscular HGB CONC 32.6 g/dL (32.0-36.0); Mean Corpuscular Hemoglobin 31.8 pg (27.0-31.0); Mean Corpuscular Volume 97.8 fL (78.0-98.0); Mean Platelet Volume 9.2 fL (7.4-10.4); Platelet Count 216 thou/uL (130-400); RBC Distribution Width 11.8 % (11.5-14.5); Red Blood Cell (RBC) Count 4.17 mill/uL (4.20-5.40); White Blood Cell (WBC) Count 7.7 thou/uL (4.8-10.8)
[2019-01-27 11:46] LABS: PTT 28.8 SEC (22.9-36.1); Prothrombin Time 12.7 SEC (12.0-14.7)
[2019-01-27 11:56] LABS: ALT (SGPT) 10 U/L (8-55); AST (SGOT) 14 U/L (5-34); Albumin 4.4 g/dL (3.4-4.8); Alkaline Phosphatase 74 U/L (40-110); Anion Gap 13 mmol/L (10-20); BUN (Urea Nitrogen) 13 mg/dL (9.8-20.1); Bilirubin, Total 0.5 mg/dL (0.2-1.2); Calc. Creatinine Clearance 0 mL/min (70-130); Calcium 10.1 mg/dL (7.8-10.44); Carbon Dioxide 28 mmol/L (23-31); Chloride 102 mmol/L (98-107); Estimated GFR-MDRD 77; Globulin 2.5 g/dL (2.4-3.5); Glucose 104 mg/dL (83-110); Potassium 4.7 mmol/L (3.5-5.1); Protein, Total 6.9 g/dL (6.0-8.3); Sodium 138 mmol/L (136-145)
== END 2019-01-27 06:13 | disposition home or self-care (01) ==
LOC: LABBT 06:12
PROVIDERS: ATTEND Internal Medicine Cardiovascular Disease
DX: Z01.812 Encounter for preprocedural laboratory examination (principal); R07.9 Chest pain, unspecified
CPT/HCPCS: 80053; 85025; 85610; 85730

== ENCOUNTER 2019-01-30 06:04 | Observation (INO) | payer MEDICARE ==
[2019-01-27 10:45] VITALS: BMI 28.5
[2019-01-30 07:40] LABS: Cardiac Risk 3.6 (Less than 4.5)
[2019-01-30] MEDS ORDERED: Heparin (Artline) 1,000 ML ONE (08:13)
[2019-01-30] MEDS ORDERED: Lidocaine 1% (PF) 30 ML VIAL ONE (08:13)
[2019-01-30] MEDS ORDERED: Midazolam HCl 2 mg/2 ml Vial ONE (08:37)
[2019-01-30] MEDS ORDERED: Fentanyl 100 MCG/2 ML VIAL ONE (08:37)
[2019-01-30] MEDS ORDERED: hydrALAZINE 20 MG/ML VIAL ONE (08:59)
[2019-01-30] MEDS ORDERED: Iopamidol 370 76% 100 ML VIAL ONE (11:27)
[2019-01-30] MEDS ORDERED: Nitroglycerin 0.4 MG TAB (25 Tab Bottle) ONE (11:49)
[2019-01-30] MEDS ORDERED: Acetaminophen 500 MG TAB PO PRN (15:59)
[2019-01-30] MEDS ORDERED: Loratadine 10 MG TAB PO PRN (16:01)
[2019-01-30] MEDS ORDERED: guaiFENesin ER 600 MG TAB PO PRN (16:03)
[2019-01-30] MEDS ORDERED: Loperamide HCl 2 MG CAP PO PRN (16:04)
--- NOTE | 2019-01-30 16:43 | HP ---
HISTORY OF PRESENT ILLNESS: Ms. Goodson is a very pleasant 88-year-old white female, who comes to the hospital for a planned left heart catheterization. She had a normal stress test a few months ago; however, she continued to have chest pain. She was brought to the catheterization lab today and was found to have a severely stenosed ostial first diagonal, very small vessel, not amenable to any type of revascularization. She also had a mild LAD disease. She has an old stent in her LAD, and this was widely patent. She did well postoperatively; however, she stated she was not feeling well, started having chest tightness. She received 1 dose of sublingual nitroglycerin, which actually alleviated her pain. She then felt nauseated, did not vomit. Eventually, her blood pressure dropped a little bit from the sublingual nitroglycerin, so she is being admitted for observation. She did not have any other flow-limiting coronary artery disease, and her groin site seems stable without any evidence of bleeding. PAST MEDICAL HISTORY: 1. CAD with previous stent in LAD as above. 2. Hypertension. 3. [id number] aortic valve stenosis. PAST SURGICAL HISTORY: 1. Left knee replacement. 2. Heart catheterization as above and stenting. FAMILY HISTORY: Noncontributory. SOCIAL HISTORY: No alcohol, tobacco, or drugs. OUTPATIENT MEDICATIONS: 1. Levothyroxine 125 mcg a day. 2. Vitamin B12. 3. Citalopram. 4. Zyrtec. 5. Mucinex. 6. Tylenol Extra Strength. 7. Aspirin 81 a day. 8. Amlodipine 5 mg a day. 9. Livalo 1 mg a day. 10. Vitamin D3. 11. Edarbi 40 mg a day. 12. Dicyclomine. 13. Esomeprazole 40 mg a day. ALLERGIES: 1. MILK GIVES HER DIARRHEA. 2. CIPRO. 3. CAT DANDER. 4. NEOSPORIN GIVES HER RASH. 5. BACTRIM. 6. MACROBID. REVIEW OF SYSTEMS: Unremarkable. PHYSICAL EXAMINATION: VITAL SIGNS: Temperature 98.2, pulse 72, respiratory rate 18, saturation 98% on room air, blood pressure 128/62. GENERAL: Awake, alert, and oriented x3, in no distress. HEENT: Normocephalic and atraumatic. NECK: Supple. LUNGS: Clear. CARDIOVASCULAR: S1 and S2. No S3 or S4. No murmurs. ABDOMEN: Soft. Positive bowel sounds. EXTREMITIES: No edema. SKIN: Warm and dry. LABORATORY DATA: Laboratory work was reviewed. ASSESSMENT AND PLAN: 1. Coronary artery disease, stable. 2. Mild hypotension, transient after Imdur. 3. Chest pain, may have been related to reflux. She does have reflux disease. 4. Admitted to observation overnight. Most likely, discharge home in the morning if everything remains stable. Job ID: [id number]
[2019-01-30] MEDS ORDERED: Acetaminophen/Codeine 30-300mg Tablet PO PRN ×2 (17:02)
[2019-01-30] MEDS ORDERED: Nitroglycerin 0.4 MG TAB (25 Tab Bottle) SL PRN (17:02)
[2019-01-30] MEDS ORDERED: Sodium Chloride 0.9% 1,000 ML IV SCH (17:02)
[2019-01-30] MEDS ORDERED: Simvastatin 5 MG TAB PO SCH (21:00)
[2019-01-30] MEDS ORDERED: Amlodipine 5 MG TAB PO SCH (21:00)
[2019-01-30] MEDS ORDERED: Citalopram 20 MG TAB PO SCH (21:00)
[2019-01-30] MEDS ORDERED: Aspirin Chewable 81 MG TAB PO SCH (21:00)
[2019-01-31] MEDS ORDERED: Levothyroxine Sodium 125 MCG TAB PO SCH (06:00)
[2019-01-31 06:02] LABS: #Eosinphils 0.1 thou/uL (0.0-0.7); #Lymphocytes 2.4 thou/uL (1.20-3.40); #Monocytes 0.4 thou/uL (0.11-0.59); #Neutrophils 4.4 thou/uL (1.40-6.50); %Basophils 0.1 % (0.0-1.0); %Eosinophils 1.3 % (0.0-10.0); %Lymphocytes 33.2 % (21.0-51.0); %Monocytes 5.3 % (0.0-10.0); %Neutrophils 60.2 % (42.0-75.0); Mean Corpuscular HGB CONC 33.2 g/dL (32.0-36.0); Mean Corpuscular Volume 96.2 fL (78.0-98.0); Mean Platelet Volume 9.4 fL (7.4-10.4); Platelet Count 183 thou/uL (130-400); RBC Distribution Width 11.9 % (11.5-14.5); Red Blood Cell (RBC) Count 4.06 mill/uL (4.20-5.40); White Blood Cell (WBC) Count 7.3 thou/uL (4.8-10.8)
[2019-01-31 06:24] LABS: ALT (SGPT) 9 U/L (8-55); AST (SGOT) 15 U/L (5-34); Alkaline Phosphatase 62 U/L (40-110); Anion Gap 13 mmol/L (10-20); BUN (Urea Nitrogen) 9 mg/dL (9.8-20.1); Bilirubin, Total 0.6 mg/dL (0.2-1.2); Calc. Creatinine Clearance 76 mL/min (70-130); Calcium 10.1 mg/dL (7.8-10.44); Carbon Dioxide 25 mmol/L (23-31); Chloride 104 mmol/L (98-107); Estimated GFR-MDRD 86; Globulin 2.6 g/dL (2.4-3.5); Glucose 107 mg/dL (83-110); Protein, Total 6.6 g/dL (6.0-8.3); Sodium 138 mmol/L (136-145)
[2019-01-31] MEDS ORDERED: Losartan 25 MG TAB PO SCH (09:00)
[2019-01-31] MEDS ORDERED: Cyanocobalamin (Vitamin B-12) 1,000 MCG TAB PO SCH (09:00)
[2019-01-31] MEDS ORDERED: Ubidecarenone 50 MG CAP PO SCH (09:00)
[2019-01-31] MEDS ORDERED: Dicyclomine 10 MG CAP PO SCH (09:00)
[2019-01-31 09:10] VITALS: BP 143/67; TEMP 97.8
--- NOTE | 2019-01-31 09:14 | PDOC.CPN ---
- Subjective Date: 01/31/19 Time: 09:14 Interval history: The pt seen and examined. No overnight events. No cardiac complaints. - Objective Allergies/Adverse Reactions: Allergies Allergy/AdvReac Type Severity Reaction Status Date / Time metronidazole [From Flagyl] Allergy Severe Nausea Verified 01/30/19 07:07 neomycin Allergy Intermediate Rash Verified 01/30/19 07:07 [From Neosporin ([id number])] polymyxin B Allergy Intermediate Rash Verified 01/30/19 07:07 [From Neosporin ([id number])] bacitracin Allergy Rash Verified 01/30/19 07:07 [From Neosporin ([id number])] Milk Containing Products Allergy Diarrhea Verified 01/30/19 07:07 cephalexin monohydrate AdvReac Intermediate NAUSEA/ Verified 01/30/19 07:07 [From Keflex] tramadol AdvReac Intermediate NAUSEA/VOMI Verified 01/30/19 07:07 TING Visit Medications: Current Medications Acetaminophen (Tylenol) 500 mg PO Q6H PRN PRN Reason: Headache/Fever or Pain Acetaminophen/Codeine Phosphate (Tylenol #3) 1 tab PO Q4H PRN PRN Reason: Mild Pain (1-3) Acetaminophen/Codeine Phosphate (Tylenol #3) 2 tab PO Q4H PRN PRN Reason: Moderate Pain (4-6) Amlodipine Besylate (Norvasc) 5 mg PO QPM [facility] Last Admin: 01/30/19 21:16 Dose: 5 mg Aspirin (Aspirin Chewable) 81 mg PO HS [facility] Last Admin: 01/30/19 21:16 Dose: 81 mg Cholecalciferol (Vitamin D3) 2,000 units PO DAILY [facility] Citalopram Hydrobromide (Celexa) 20 mg PO HS [facility] Last Admin: 01/30/19 21:17 Dose: 20 mg Coenzyme Q10 (Coenzyme Q10) 100 mg PO DAILY [facility] Cyanocobalamin (Vitamin B-12) 1,000 mcg PO DAILY [facility] Dicyclomine HCl (Bentyl) 10 mg PO DAILY [facility] Guaifenesin (Mucinex) 600 mg PO BIDPRN PRN PRN Reason: Cough Sodium Chloride (Normal Saline 0.9%) 1,000 mls @ 125 mls/hr IV INF [facility] Levothyroxine Sodium (Synthroid) 125 mcg PO 0600 [facility] Last Admin: 01/31/19 06:12 Dose: 125 mcg Loperamide HCl (Imodium) 2 mg PO PRN PRN PRN Reason: Diarrhea/Loose Stools Loratadine (Claritin) 10 mg PO DAILYPRN PRN PRN Reason: Allergies Losartan Potassium (Cozaar) 100 mg PO DAILY [facility] Nitroglycerin (Nitrostat) 0.4 mg SL Q5MIN PRN PRN Reason: Chest Pain Pantoprazole Sodium (Protonix) 40 mg PO DAILY [facility] Simvastatin (Zocor) 10 mg PO HS [facility] Last Admin: 01/30/19 21:16 Dose: 10 mg Sodium Chloride (Normal Saline 0.9% 250 Ml Bag) 200 ml IVPB PRN PRN PRN Reason: BOLUS IF SBP <90 Vital Signs & Weight: Vital Signs Temp Pulse Resp BP BP Pulse Ox 01/31/19 09:09 97.8 F 63 16 143/67 H 96 01/31/19 04:24 63 18 146/69 H 95 01/30/19 21:16 67 154/69 H Weight 173 lb 12.646 oz - Physical Exam General: alert & oriented x3 HEENT: mucus membranes moist Neck: supple neck Cardiac: regular rate and rhythm, S1/S2 Lungs: clear to auscultation Neuro: cranial nerve 2-12 intact Abdomen: unremarkable Skin: clear, other (Rt Fem [employer] without any drainage, hematoma, or mass to palpate.) - Labs Result Diagrams: 01/31/19 05:49 01/31/19 05:49 - Assessment/Plan Assessment/Plan: 1. CAD with hx of stent in LAD - s/p C with cont. medical tx; on ARB, ASA, and Statin; not on BBlocker due to bradycardia 2. HTN - stable with current meds 3. mild-mod - will f/u with Echo as outpt 4. GOYO - The pt will f/u with Dr Fairbanks as outpt. MAR reviewed * From Cardiac standpoint, the pt is stable to d/c home. The pt will f/u with Dr Cornejo within 2-3 wks.
--- NOTE | 2019-02-01 14:28 | EKG ---
Test Reason : C/O CHEST PAIN Blood Pressure : / mmHG Vent. Rate : 066 BPM Atrial Rate : 066 BPM P-R Int : 190 ms QRS Dur : 084 ms QT Int : 452 ms P-R-T Axes : 076 037 063 degrees QTc Int : 473 ms Normal sinus rhythm Normal ECG When compared with ECG of 08-JUL-2018 09:47, QT has lengthened Confirmed by JULIAN RASHEED ([id number]) on 02/01/2019 2:28:18 PM Referred By: EFRAIN Confirmed By:JULIAN RASHEED
--- NOTE | 2019-02-03 17:36 | EKG ---
Test Reason : Blood Pressure : / mmHG Vent. Rate : 065 BPM Atrial Rate : 065 BPM P-R Int : 214 ms QRS Dur : 084 ms QT Int : 416 ms P-R-T Axes : 085 026 070 degrees QTc Int : 432 ms Sinus rhythm with 1st degree A-V block Otherwise normal ECG When compared with ECG of 30-JAN-2019 11:52, No significant change was found Confirmed by JULIAN RASHEED ([id number]) on 02/03/2019 5:36:24 PM Referred By: EFRAIN Confirmed By:JULIAN RASHEED
== END 2019-01-31 12:30 | disposition home or self-care (01) ==
LOC: CCL 06:04 → 2SW 15:30
PROVIDERS: ADMIT Internal Medicine Cardiovascular Disease; ATTEND Internal Medicine Cardiovascular Disease
PROC: 4A023N7 Measurement of Cardiac Sampling and Pressure, Left Heart, Percutaneous Approach (ICD-10-PCS; principal; 2019-01-30)
PROC: B2111ZZ Fluoroscopy of Multiple Coronary Arteries using Low Osmolar Contrast (ICD-10-PCS; 2019-01-30)
PROC: B2151ZZ Fluoroscopy of Left Heart using Low Osmolar Contrast (ICD-10-PCS; 2019-01-30)
DX: I25.10 Atherosclerotic heart disease of native coronary artery without angina pectoris (principal); R07.9 Chest pain, unspecified; I95.9 Hypotension, unspecified; I35.0 Nonrheumatic aortic (valve) stenosis; Z79.82 Long term (current) use of aspirin; Z79.899 Other long term (current) drug therapy; Z88.1 Allergy status to other antibiotic agents; Z88.5 Allergy status to narcotic agent; Z91.011 Allergy to milk products; Z95.5 Presence of coronary angioplasty implant and graft
CPT/HCPCS: 80053; 80061; 83880; 85025; 93005 ×2; 93458; 93798; C1769; G0378 ×2; 36415; 93010; 99152; J0360; J1644; J2001; J2250; J3010; Q9967

== ENCOUNTER 2019-02-06 15:32 | Emergency (ER) | payer MEDICARE ==
[~2019-02-06 15:32] MED LIST: Iopamidol 300 61% 100 ML VIAL FS ONE
[2019-02-06 16:26] LABS: #Basophils 0.1 thou/uL (0.0-0.2); #Eosinphils 0.2 thou/uL (0.0-0.7); #Lymphocytes 2.9 thou/uL (1.20-3.40); #Monocytes 0.6 thou/uL (0.11-0.59); #Neutrophils 5.5 thou/uL (1.40-6.50); %Basophils 0.9 % (0.0-1.0); %Eosinophils 1.7 % (0.0-10.0); %Lymphocytes 30.9 % (21.0-51.0); %Monocytes 6.3 % (0.0-10.0); %Neutrophils 60.1 % (42.0-75.0); Mean Corpuscular HGB CONC 32.5 g/dL (32.0-36.0); Mean Corpuscular Hemoglobin 31.4 pg (27.0-31.0); Mean Corpuscular Volume 96.6 fL (78.0-98.0); Mean Platelet Volume 10.3 fL (7.4-10.4); Platelet Count 226 thou/uL (130-400); RBC Distribution Width 11.8 % (11.5-14.5); Red Blood Cell (RBC) Count 4.16 mill/uL (4.20-5.40); White Blood Cell (WBC) Count 9.2 thou/uL (4.8-10.8)
[2019-02-06 16:41] LABS: ALT (SGPT) 10 U/L (8-55); AST (SGOT) 12 U/L (5-34); Albumin 4.2 g/dL (3.4-4.8); Alkaline Phosphatase 79 U/L (40-110); Anion Gap 15 mmol/L (10-20); BUN (Urea Nitrogen) 13 mg/dL (9.8-20.1); Bilirubin, Total 0.3 mg/dL (0.2-1.2); Calc. Creatinine Clearance 0 mL/min (70-130); Carbon Dioxide 25 mmol/L (23-31); Chloride 99 mmol/L (98-107); Estimated GFR-MDRD 73; Globulin 2.7 g/dL (2.4-3.5); Glucose 93 mg/dL (83-110); Lipase 19 U/L (8-78); Magnesium 1.2 mg/dL (1.6-2.6); Potassium 4.5 mmol/L (3.5-5.1); Protein, Total 6.9 g/dL (6.0-8.3); Sodium 134 mmol/L (136-145)
[2019-02-06 17:15] LABS: Bilirubin Negative (Negative); Blood, Urine Negative (Negative); Clarity Clear (Clear); Glucose, Urine (Dipstick) Negative (Negative); Leukocyte Negative (Negative); Nitrite Negative (Negative); Protein, Urine (Dipstick) Negative (Neg-Trace); Urobilinogen 0.2 mg/dL (Less than 2)
--- NOTE | 2019-02-06 17:27 | CT ---
CT ABDOMEN WITH CONTRAST CT PELVIS WITH CONTRAST: DATE: 02/06/2019 HISTORY: 88-year-old female with abdominal pain and diarrhea COMPARISON: none TECHNIQUE: IV injection of iodinated contrast media: administered. Oral contrast media:Not administered FINDINGS: Large number of right renal cysts and several left renal cysts. Largest on the right is at lower pole measuring 3.5 cm. There is a 1.5 cm focal lesion at medial aspect of right mid pole parenchyma within the column of [place] in with density of 50 4HU, which is indeterminate. No hydronephrosis or p yelonephritis. Dilated right extrarenal pelvis and nonspecific dilation of proximal right ureter. No dilation of calyces. Stent at origin of left renal artery. No abdominal aortic aneurysm. No small bowel dilation. No colonic diverticulitis. No ascites or pneumoperitoneum. Absent uterus, appendix, and gallbladder. No major pathology of liver, right adrenal, pancreas, spleen, or urinary bladder. Se daniel degenerative disc disease and facet DJD at lumbar spine several levels. Laminectomy defects. No ascites or pneumoperitoneum. No pleural effusion. IMPRESSION: 1) no acute findings. 2) multiple bilateral renal cysts, right greater than left. 3) a 1.5 cm round indeterminate mass in the right renal midpole. This could be a hemorrhagic renal cy st, but in order to rule out renal neoplasm, a multiphase CT of abdomen with and without contrast is recommended, on a nonemergent basis. 4) status post cholecystectomy, appendectomy, and hysterectomy. 5) left renal artery stent. 6) severe lumbar spondylosis
== END 2019-02-06 18:29 ==
LOC: SCSER 15:32
DX: E83.42 Hypomagnesemia (principal); R19.7 Diarrhea, unspecified; I25.10 Atherosclerotic heart disease of native coronary artery without angina pectoris; E03.9 Hypothyroidism, unspecified; K21.9 Gastro-esophageal reflux disease without esophagitis; I10 Essential (primary) hypertension; F41.9 Anxiety disorder, unspecified
CPT/HCPCS: 74177; 80053; 81003; 83690; 83735; 84484; 85025; 93005; 96361; 96365

== ENCOUNTER 2019-04-09 09:54 | Outpatient (CLI) | payer MEDICARE ==
--- NOTE | 2019-04-09 12:58 | CT ---
CT of the abdomen with and without contrast INDICATION: Follow-up renal cysts COMPARISON: Prior CT of the abdomen and pelvis with contrast dated February 06, 2019. TECHNIQUE: Axial noncontrast CT the abdomen, nephrographic phase axial CT the abdomen and delayed pha se axial CT of the abdomen were obtained. Sagittal and coronal reformats were constructed from the delayed phase imaging series. FINDINGS: Kidneys: There are bilateral renal cysts as described in the prior examination. The indeterminate 1.5 cm midpole lesion is seen on image 61 of series 2, series 3 and series 4. The lesion is hyperdense on the precontrast images with a mean Hounsfield unit of 56.85. The nephrographic phase Hounsfield un it is 65.71. The delayed phase Hounsfield unit is 58.80. This is consistent with a proteinaceous cyst. Additional smaller exophytic proteinaceous cyst is seen off the mid to lower pole of the left k id[place] on image 67 of series 2. 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 No gross urothelial lesion is identified. Liver: No suspicious abnormality. Gallbladder: Surgically absent. Pancreas: Normal appearing. Adrenal glands: There is mild nodularity of both adrenal glands. There is moderate hypertrophy of the left adrenal gland. Spleen: Normal appearing. Retroperitoneum: No enlarged lymph nodes Vasculature: There are mild vascular calcifications seen involving the visualized vasculature. There is an endovascular stent within the left main renal artery. Visualized small and large bowel: There is within normal limits. Soft tissues: There is a left lower quadrant abdominal wall hernia containing fat Osseous structures: No acute osseous abnormality. There is scattered degenerative and osteoarthritic change present. IMPRESSION: 1. The indeterminant mid right renal lesion on the comparison CT evaluation from February 06, 2019 is demonstrated on the current examination as being a proteinaceous cyst. There are bilateral renal cysts. There is a partially duplicated right renal collecting system. No suspicious solid renal lesio n is identified. 2. Moderate hypertrophy of the left adrenal gland. 3. Cholecystectomy. 4. Left lower quadrant anterolateral abdominal wall hernia containing fat.
[2019-04-09] MEDS ORDERED: Iopamidol-370 76% 500 ML 1 ML ONE (14:37)
== END 2019-04-09 09:55 | disposition home or self-care (01) ==
LOC: BICCT 09:54
PROVIDERS: ATTEND Internal Medicine
DX: N28.1 Cyst of kidney, acquired (principal); K46.9 Unspecified abdominal hernia without obstruction or gangrene; E27.8 Other specified disorders of adrenal gland; N28.89 Other specified disorders of kidney and ureter; Z90.49 Acquired absence of other specified parts of digestive tract
CPT/HCPCS: 74170; 82565; Q9967

== ENCOUNTER 2019-04-13 20:26 | Emergency (ER) | payer MEDICARE ==
[~2019-04-13 20:26] MED LIST changes: -Iopamidol 300 61% 100 ML VIAL FS ONE; +Iopamidol-370 76% 500 ML 1 ML ONE
[2019-04-13 21:27] LABS: #Lymphocytes 0.9 thou/uL (1.20-3.40); #Monocytes 0.2 thou/uL (0.11-0.59); #Neutrophils 5.4 thou/uL (1.40-6.50); %Basophils 0.1 % (0.0-1.0); %Eosinophils 0.1 % (0.0-10.0); %Lymphocytes 13.4 % (21.0-51.0); %Monocytes 3.4 % (0.0-10.0); Mean Corpuscular HGB CONC 32.3 g/dL (32.0-36.0); Mean Corpuscular Hemoglobin 31.6 pg (27.0-31.0); Mean Corpuscular Volume 97.8 fL (78.0-98.0); Platelet Count 197 thou/uL (130-400); RBC Distribution Width 11.8 % (11.5-14.5); Red Blood Cell (RBC) Count 4.42 mill/uL (4.20-5.40); White Blood Cell (WBC) Count 6.5 thou/uL (4.8-10.8)
[2019-04-13 21:45] LABS: ALT (SGPT) 9 U/L (8-55); AST (SGOT) 15 U/L (5-34); Albumin 4.3 g/dL (3.4-4.8); Alkaline Phosphatase 69 U/L (40-110); Anion Gap 12 mmol/L (10-20); BUN (Urea Nitrogen) 9 mg/dL (9.8-20.1); Bilirubin, Total 0.4 mg/dL (0.2-1.2); Calc. Creatinine Clearance 0 mL/min (70-130); Carbon Dioxide 24 mmol/L (23-31); Chloride 100 mmol/L (98-107); Estimated GFR-MDRD 79; Glucose 111 mg/dL (83-110); Lipase 15 U/L (8-78); Potassium 3.9 mmol/L (3.5-5.1); Protein, Total 7.3 g/dL (6.0-8.3); Sodium 132 mmol/L (136-145)
--- NOTE | 2019-04-13 23:16 | CT ---
CT Abdomen Pelvis W Con History: Left lower quadrant pain. Comparison: CT examination April 09, 2019 Findings: Mild scarring right lung base. Mild elevation right hemidiaphragm. There is a fat-containing hernia between the right external and internal oblique muscles through a de fect in the oblique fascia. Minimal diverticular disease sigmoid colon. No evidence for active inflammation. The aortoiliac contour is nonaneurysmal. Liver, pancreas, adrenal glands are unremarkable. The renal hypodensities have been evaluated on the most recent comparison CT examination. Laminectomy changes at L4 and L5. High-grade facet arthropathy. Impression: 1. Minimal diverticular disease of the sigmoid colon without evidence of active current inflammation. 2. Fat and vessels containing hernia between the right external and internal oblique muscles through a defect in the oblique fascia. 3. Similar appearance renal hypodensities fully interrogated on the April 09, 2019 exam.
[2019-04-13] MEDS ORDERED: Isosorbide Mononitrate (ER) 30 MG TAB PO SCH (23:45)
[2019-04-13 23:47] LABS: Bilirubin Negative (Negative); Blood, Urine Negative (Negative); Clarity Clear (Clear); Glucose, Urine (Dipstick) Normal (Negative); Leukocyte Negative Leu/uL (Negative); Nitrite Negative (Negative); Protein, Urine (Dipstick) Negative (Neg-Trace); Urobilinogen Normal mg/dL (Less than 2)
== END 2019-04-14 00:20 | disposition home or self-care (01) ==
LOC: ERS 20:26
DX: R10.9 Unspecified abdominal pain (principal); R11.0 Nausea; R10.814 Left lower quadrant abdominal tenderness; R10.813 Right lower quadrant abdominal tenderness; I25.10 Atherosclerotic heart disease of native coronary artery without angina pectoris; E03.9 Hypothyroidism, unspecified; E78.5 Hyperlipidemia, unspecified; E78.00 Pure hypercholesterolemia, unspecified; I10 Essential (primary) hypertension; F41.9 Anxiety disorder, unspecified; Z79.82 Long term (current) use of aspirin; Z79.899 Other long term (current) drug therapy
CPT/HCPCS: 36415; 74177; 80053; 81003; 83690; 85025; 96360; Q9967

== ENCOUNTER 2020-01-24 08:48 | Emergency (ER) | payer MEDICARE ==
[2020-01-24 09:48] LABS: #Basophils 0.1 thou/uL (0.0-0.2); #Eosinphils 0.1 thou/uL (0.0-0.7); #Lymphocytes 2.6 thou/uL (1.20-3.40); #Monocytes 0.5 thou/uL (0.11-0.59); #Neutrophils 8.6 thou/uL (1.40-6.50); %Basophils 0.8 % (0.0-1.0); %Eosinophils 0.8 % (0.0-10.0); %Lymphocytes 21.9 % (21.0-51.0); %Monocytes 3.9 % (0.0-10.0); %Neutrophils 72.6 % (42.0-75.0); Hemoglobin 12.6 g/dL (12.0-16.0); Mean Corpuscular HGB CONC 32.5 g/dL (32.0-36.0); Mean Corpuscular Hemoglobin 32.1 pg (27.0-31.0); Mean Corpuscular Volume 98.8 fL (78.0-98.0); Mean Platelet Volume 9.3 fL (7.4-10.4); Platelet Count 215 thou/uL (130-400); RBC Distribution Width 11.9 % (11.5-14.5); Red Blood Cell (RBC) Count 3.93 mill/uL (4.20-5.40); White Blood Cell (WBC) Count 11.9 thou/uL (4.8-10.8)
[2020-01-24] MEDS ORDERED: Nitroglycerin 2% Ointment 1 INCH/1 GM Packet ONE (09:56)
--- NOTE | 2020-01-24 10:11 | RAD ---
Exam: Chest one view HISTORY:Left arm pain. Comparison: 07/08/2018 FINDINGS: Cardiac silhouette: Normal Aorta: Atherosclerotic Pulmonary vessels: Normal Costophrenic angles: Clear LUNGS: No masses or consolidation. Chronic changes. Pneumothorax: None Osseous abnormalities: Old right rib fractures. IMPRESSION: 1. No acute cardiopulmonary process 2. Atherosclerosis.
[2020-01-24 10:12] LABS: ALT (SGPT) 10 U/L (8-55); AST (SGOT) 13 U/L (5-34); Alkaline Phosphatase 66 U/L (40-110); Anion Gap 16 mmol/L (10-20); BUN (Urea Nitrogen) 14 mg/dL (9.8-20.1); Bilirubin, Total 0.4 mg/dL (0.2-1.2); Calc. Creatinine Clearance 0 mL/min (70-130); Calcium 9.7 mg/dL (7.8-10.44); Carbon Dioxide 22 mmol/L (23-31); Chloride 105 mmol/L (98-107); Globulin 2.9 g/dL (2.4-3.5); Glucose 112 mg/dL (83-110); Potassium 4.2 mmol/L (3.5-5.1); Protein, Total 6.9 g/dL (6.0-8.3); Sodium 139 mmol/L (136-145)
[2020-01-24] MEDS ORDERED: Ketorolac Tromethamine 30 MG/ML VIAL ONE (10:53)
[2020-01-24 11:57] LABS: Bilirubin Negative (Negative); Blood, Urine Negative (Negative); Clarity Clear (Clear); Glucose, Urine (Dipstick) Normal (Negative); Ketone, Urine Negative (Negative); Leukocyte 500 Leu/uL (Negative); Nitrite Negative (Negative); Protein, Urine (Dipstick) 20 mg/dL (Neg-Trace); RBC/HPF 0-3 HPF (0-3); Specific Gravity, Urine 1.016 (1.002-1.036); Squamous Epithelial 0-3 HPF (0-3); Urobilinogen Normal mg/dL (Less than 2); WBC/HPF 21-50 HPF (0-3); pH, Urine 6.5 (5.0-9.0)
[2020-01-24 11:58] LABS: Bacteria/HPF 1+ HPF (None Seen)
--- NOTE | 2020-01-30 17:03 | EKG ---
Test Reason : EMERGENCY EXAM Blood Pressure : / mmHG Vent. Rate : 077 BPM Atrial Rate : 077 BPM P-R Int : 186 ms QRS Dur : 080 ms QT Int : 392 ms P-R-T Axes : 068 029 069 degrees QTc Int : 443 ms Normal sinus rhythm Normal ECG Confirmed by BARBIE REYES DO ([id number]), digital editor KOLBY WALLS ([id number]) on 01/30/2020 5:03:19 PM Referred By: Confirmed By:BARBIE REYES DO
== END 2020-01-24 11:35 | disposition home or self-care (01) ==
LOC: ERS 08:48
DX: M77.12 Lateral epicondylitis, left elbow (principal); E78.5 Hyperlipidemia, unspecified; E78.00 Pure hypercholesterolemia, unspecified; I10 Essential (primary) hypertension; F41.9 Anxiety disorder, unspecified; Z79.899 Other long term (current) drug therapy; Z79.82 Long term (current) use of aspirin
CPT/HCPCS: 36415; 71045; 80053; 81003; 81015; 83880; 84484; 85025; 93005; 96372; J1885

== ENCOUNTER 2020-12-09 22:40 | Inpatient (IN) | payer MEDICARE ==
[2020-12-09] MEDS ORDERED: Albuterol 200 PUFF (6.7GM INHALER) ONE (23:38)
[2020-12-09] MEDS ORDERED: Ondansetron PF 4 MG/2 ML Vial ONE (23:38)
[2020-12-09] MEDS ORDERED: Morphine 4 MG/ML VIAL ONE (23:38)
[2020-12-10 00:22] LABS: #Basophils 0.1 thou/uL (0.0-0.2); #Eosinphils 0.1 thou/uL (0.0-0.7); #Lymphocytes 2.5 thou/uL (1.20-3.40); #Monocytes 0.7 thou/uL (0.11-0.59); #Neutrophils 13.5 thou/uL (1.40-6.50); %Basophils 0.5 % (0.0-1.0); %Eosinophils 0.7 % (0.0-10.0); %Lymphocytes 14.6 % (21.0-51.0); %Monocytes 4.3 % (0.0-10.0); %Neutrophils 79.9 % (42.0-75.0); Hemoglobin 12.3 g/dL (12.0-16.0); Mean Corpuscular HGB CONC 33.5 g/dL (32.0-36.0); Mean Corpuscular Hemoglobin 32.9 pg (27.0-31.0); Mean Corpuscular Volume 98.2 fL (78.0-98.0); Mean Platelet Volume 9.2 fL (7.4-10.4); Platelet Count 236 thou/uL (130-400); RBC Distribution Width 11.8 % (11.5-14.5); Red Blood Cell (RBC) Count 3.74 mill/uL (4.20-5.40)
[2020-12-10 00:41] LABS: ALT (SGPT) 12 U/L (8-55); AST (SGOT) 15 U/L (5-34); Albumin 4.1 g/dL (3.4-4.8); Alkaline Phosphatase 71 U/L (40-110); Anion Gap 12 mmol/L (10-20); BUN (Urea Nitrogen) 16 mg/dL (9.8-20.1); Bilirubin, Total 0.3 mg/dL (0.2-1.2); Calc. Creatinine Clearance 0 mL/min (70-130); Calcium 10.3 mg/dL (7.8-10.44); Carbon Dioxide 27 mmol/L (23-31); Chloride 102 mmol/L (98-107); Globulin 2.5 g/dL (2.4-3.5); Glucose 142 mg/dL (83-110); Potassium 4.2 mmol/L (3.5-5.1); Protein, Total 6.6 g/dL (5.8-8.1); Sodium 137 mmol/L (136-145)
[2020-12-10] MEDS ORDERED: Ondansetron PF 4 MG/2 ML Vial IVP PRN (01:02)
[2020-12-10] MEDS ORDERED: Dextrose 5% in Water 1,000 ML IV PRN (01:02)
[2020-12-10] MEDS ORDERED: hydrALAZINE 20 MG/ML VIAL SLOW IVP PRN (01:02)
[2020-12-10] MEDS ORDERED: Dextrose 50% Abboject 50 ML SYRINGE SLOW IVP PRN (01:02)
[2020-12-10] MEDS ORDERED: traMADol HCl 50 MG TAB PO PRN (01:06)
[2020-12-10] MEDS ORDERED: Cyclobenzaprine 10 MG TAB PO PRN (01:06)
[2020-12-10] MEDS ORDERED: guaiFENesin ER 600 MG TAB PO PRN (01:07)
[2020-12-10] MEDS: Morphine 2 MG/ML VIAL SLOW IVP PRN (03:04)
[2020-12-10] MEDS: Acetaminophen 325 MG TAB PO SCH ×4 (03:15→21:09)
[2020-12-10 03:53] VITALS: BMI 32.7
[2020-12-10] MEDS ORDERED: traMADol HCl 50 MG TAB PO SCH (06:00)
[2020-12-10] MEDS: Levothyroxine Sodium 125 MCG TAB PO SCH (06:28)
[2020-12-10 06:58] LABS: #Eosinphils 0.1 thou/uL (0.0-0.7); #Lymphocytes 2.1 thou/uL (1.20-3.40); #Monocytes 0.8 thou/uL (0.11-0.59); #Neutrophils 11.9 thou/uL (1.40-6.50); %Basophils 0.1 % (0.0-1.0); %Eosinophils 0.4 % (0.0-10.0); %Monocytes 5.4 % (0.0-10.0); %Neutrophils 80.1 % (42.0-75.0); Hemoglobin 12.2 g/dL (12.0-16.0); Mean Corpuscular HGB CONC 33.7 g/dL (32.0-36.0); Mean Corpuscular Hemoglobin 33.3 pg (27.0-31.0); Mean Corpuscular Volume 98.7 fL (78.0-98.0); Mean Platelet Volume 9.5 fL (7.4-10.4); Platelet Count 202 thou/uL (130-400); RBC Distribution Width 11.9 % (11.5-14.5); Red Blood Cell (RBC) Count 3.66 mill/uL (4.20-5.40); White Blood Cell (WBC) Count 14.9 thou/uL (4.8-10.8)
[2020-12-10 07:16] LABS: Anion Gap 14 mmol/L (10-20); BUN (Urea Nitrogen) 15 mg/dL (9.8-20.1); Calc. Creatinine Clearance 76 mL/min (70-130); Calcium 9.9 mg/dL (7.8-10.44); Carbon Dioxide 24 mmol/L (23-31); Chloride 103 mmol/L (98-107); Glucose 118 mg/dL (83-110); Potassium 4.7 mmol/L (3.5-5.1); Sodium 136 mmol/L (136-145)
[2020-12-10] MEDS ORDERED: ceFAZolin Sodium/D5W 2 GM in Premix Bag 1 BAG IVPB SCH (08:30)
[2020-12-10] MEDS: Cyanocobalamin (Vitamin B-12) 1,000 MCG TAB PO SCH (08:36)
[2020-12-10] MEDS: Famotidine 20 MG TAB PO SCH ×2 (08:36→23:12)
[2020-12-10] MEDS: Dicyclomine 10 MG CAP PO SCH (08:36)
[2020-12-10] MEDS ORDERED: Losartan 25 MG TAB PO SCH (09:00)
[2020-12-10] MEDS ORDERED: Non-Formulary Item 1 EACH (Azilsartan Medoxomil [Edarbi] 80 MG Tablet) PO SCH (09:00)
[2020-12-10] MEDS ORDERED: Fentanyl 250 MCG/5 ML VIAL ONE (13:38)
[2020-12-10] MEDS ORDERED: Phenylephrine 10 MG/ML VIAL ONE (13:39)
[2020-12-10] MEDS ORDERED: SUGAMMADEX SODIUM 200 MG/2 ML VIAL ONE (13:59)
[2020-12-10] MEDS ORDERED: Albumin 5% 250 ML ONE (13:59)
[2020-12-10] MEDS ORDERED: ceFAZolin 2 GM/DEX 5% 100 ML BAG ONE (14:02)
[2020-12-10] MEDS ORDERED: Midazolam HCl 2 mg/2 ml Vial ONE (14:07)
[2020-12-10] MEDS ORDERED: Ketamine 50 MG/ML (10ML VIAL) ONE (14:07)
[2020-12-10] MEDS ORDERED: Morphine 2 MG/ML VIAL ONE (14:08)
[2020-12-10] MEDS ORDERED: PROPOFOL 200 MG/20 ML VIAL ONE (14:36)
[2020-12-10] MEDS ORDERED: Ondansetron PF 4 MG/2 ML Vial ONE (14:36)
[2020-12-10] MEDS ORDERED: Lidocaine 1% PF 5 ML VIAL ONE (14:36)
[2020-12-10] MEDS ORDERED: Loratadine 10 MG TAB PO PRN (15:00)
[2020-12-10] MEDS ORDERED: Ondansetron HCl/PF 4 MG/2 ML Vial IVP PRN (15:44)
[2020-12-10] MEDS ORDERED: HYDROmorphone 2 MG/ML VIAL SLOW IVP PRN (15:44)
[2020-12-10] MEDS ORDERED: Promethazine HCl 25 MG/ML VIAL IVPB PRN (15:44)
[2020-12-10] MEDS ORDERED: Promethazine HCl 25 MG/ML VIAL IM PRN (15:44)
[2020-12-10 16:09] LABS: Cardiac Risk 3.2 (Less than 4.5)
[2020-12-10 16:27] LABS: Free T4 (Free Thyroxine) 1.19 ng/dL (0.70-1.48); Thyroid Stimulating Hormone 1.8054 uIU/mL (0.35-4.94)
[2020-12-10 18:23] LABS: Troponin I 0.016 ng/mL (< 0.028)
[2020-12-10 18:42] LABS: SARS-CoV-2 PCR by NAA Not Detected (NotDetected)
[2020-12-10] MEDS ORDERED: CEFAZOLIN 2 GM in Premix Bag 1 BAG IVPB SCH (22:00)
[2020-12-10] MEDS: ceFAZolin Sodium/D5W 2 GM in Premix Bag 1 BAG IVPB SCH (22:46)
[2020-12-10] MEDS: Amlodipine 5 MG TAB PO SCH (23:11)
[2020-12-10] MEDS: Citalopram 20 MG TAB PO SCH (23:12)
[2020-12-10] MEDS: Simvastatin 10 MG TAB PO SCH (23:12)
[2020-12-11] MEDS: Morphine 2 MG/ML VIAL SLOW IVP PRN (00:51)
[2020-12-11] MEDS: Acetaminophen 325 MG TAB PO SCH ×4 (03:40→23:06)
[2020-12-11] MEDS: ceFAZolin Sodium/D5W 2 GM in Premix Bag 1 BAG IVPB SCH (05:49)
[2020-12-11] MEDS: Levothyroxine Sodium 125 MCG TAB PO SCH (05:49)
[2020-12-11 06:30] LABS: #Eosinphils 0.1 thou/uL (0.0-0.7); #Monocytes 0.8 thou/uL (0.11-0.59); #Neutrophils 13.4 thou/uL (1.40-6.50); %Basophils 0.2 % (0.0-1.0); %Eosinophils 0.4 % (0.0-10.0); %Lymphocytes 12.3 % (21.0-51.0); %Monocytes 5.2 % (0.0-10.0); %Neutrophils 81.9 % (42.0-75.0); Hemoglobin 10.6 g/dL (12.0-16.0); Mean Corpuscular HGB CONC 32.9 g/dL (32.0-36.0); Mean Corpuscular Hemoglobin 32.9 pg (27.0-31.0); Mean Corpuscular Volume 99.9 fL (78.0-98.0); Mean Platelet Volume 9.5 fL (7.4-10.4); Platelet Count 166 thou/uL (130-400); RBC Distribution Width 11.9 % (11.5-14.5); Red Blood Cell (RBC) Count 3.22 mill/uL (4.20-5.40); White Blood Cell (WBC) Count 16.3 thou/uL (4.8-10.8)
[2020-12-11 07:06] LABS: Troponin I 0.294 ng/mL (< 0.028)
[2020-12-11] MEDS ORDERED: Mometasone 200 MCG/Formoterol 5 MCG 120 PUFF INHALER INH SCH (08:15)
[2020-12-11] MEDS: Cyanocobalamin (Vitamin B-12) 1,000 MCG TAB PO SCH (08:21)
[2020-12-11] MEDS: Famotidine 20 MG TAB PO SCH ×2 (08:21→23:25)
[2020-12-11] MEDS: Cholecalciferol 1,000 UNITS (25 MCG) TAB PO SCH (08:21)
[2020-12-11] MEDS: Dicyclomine 10 MG CAP PO SCH (08:21)
[2020-12-11] MEDS ORDERED: traMADol HCl 50 MG TAB PO PRN (08:57)
[2020-12-11] MEDS ORDERED: Losartan 25 MG TAB PO SCH (09:00)
[2020-12-11] MEDS ORDERED: Aspirin 81 mg Enteric Coated Tablet PO SCH (09:00)
[2020-12-11] MEDS: Gabapentin 100 MG CAP PO SCH (10:28)
[2020-12-11] MEDS ORDERED: Enoxaparin Sodium 40 MG/0.4 ML SYRINGE SC SCH (11:30)
[2020-12-11] MEDS ORDERED: traMADol HCl 50 MG TAB PO SCH (12:00)
[2020-12-11 14:45] LABS: Actual Bicarbonate (HCO3a) 25.5 mEq/L (22-28); Base Excess (BEa) -0.9 mEq/L (-2.0 to +3.0); Calcium, Ionized (arterial) 1.25 mmol/L (1.12-1.30); Carboxyhemoglobin (COHb) 0.7 gm% (0.0-3.0); Hemoglobin (Hb) 10.5 g/dL (12.0-16.0); Potassium - ABG Lab 4.31 mmol/L (3.70-5.30); pH, Arterial 7.33 (7.35-7.45)
[2020-12-11] MEDS ORDERED: Furosemide 40 MG/4 ML VIAL ONE (14:47)
[2020-12-11] MEDS ORDERED: Aspirin 81 mg Enteric Coated Tablet ONE (14:51)
[2020-12-11] MEDS ORDERED: Aspirin Chewable 81 MG TAB ONE (14:52)
[2020-12-11 15:05] LABS: Puncture Site RBA
[2020-12-11 15:14] LABS: Hemoglobin 10.8 g/dL (12.0-16.0); Mean Corpuscular HGB CONC 32.1 g/dL (32.0-36.0); Mean Corpuscular Hemoglobin 32.2 pg (27.0-31.0); Platelet Count 145 thou/uL (130-400); RBC Distribution Width 11.9 % (11.5-14.5); Red Blood Cell (RBC) Count 3.35 mill/uL (4.20-5.40)
[2020-12-11 15:28] LABS: Band 4 % (5-11); Eosinophils 1 % (0-10); Lymphocytes 10 % (21-51); MDiff Complete? YES; Monocytes 7 % (0-10); Neutrophil 77 % (42-75); Platelet Morphology Comment Appears Adequate; Polychromasia SLIGHT = 2-3 cells (100X) (0-2/hpf); Reactive Lymphocytes 1 % (0-10)
[2020-12-11 15:31] LABS: Lactic Acid 3.2 mmol/L (0.5-2.2)
[2020-12-11 15:58] LABS: CKMB 2.4 ng/mL (0-6.6)
[2020-12-11 16:40] LABS: Troponin I 0.264 ng/mL (< 0.028)
[2020-12-11 16:43] LABS: Anion Gap 11 mmol/L (10-20); BUN (Urea Nitrogen) 19 mg/dL (9.8-20.1); Calc. Creatinine Clearance 63 mL/min (70-130); Carbon Dioxide 27 mmol/L (23-31); Chloride 100 mmol/L (98-107); Glucose 145 mg/dL (83-110); Magnesium 1.3 mg/dL (1.6-2.6); Potassium 4.4 mmol/L (3.5-5.1); Sodium 134 mmol/L (136-145)
[2020-12-11 16:58] LABS: Bacteria/HPF None Seen HPF (None Seen); Bilirubin Negative (Negative); Blood, Urine Negative (Negative); Clarity Clear (Clear); Glucose, Urine (Dipstick) Normal (Negative); Ketone, Urine Negative (Negative); Leukocyte Negative Leu/uL (Negative); Nitrite Negative (Negative); Protein, Urine (Dipstick) Negative (Neg-Trace); RBC/HPF 0-3 HPF (0-3); Specific Gravity, Urine 1.015 (1.002-1.036); Squamous Epithelial 0-3 HPF (0-3); Urobilinogen Normal mg/dL (Less than 2); WBC/HPF 0-3 HPF (0-3); pH, Urine 5.5 (5.0-9.0)
[2020-12-11] MEDS ORDERED: Potassium Phosphate 30 MMOL, Magnesium Sulfate 3 GM in Sodium Chloride 0.9% 250 ML 250 ML IVPB SCH (17:30)
[2020-12-11] MEDS ORDERED: Magnesium Sulfate 3 GM in Sodium Chloride 0.9% 100 ML IV SCH (17:30)
[2020-12-11] MEDS ORDERED: Potassium Phosphate 30 MMOL, Magnesium Sulfate 3 GM in Sodium Chloride 0.9% 500 ML IVPB SCH (17:30)
[2020-12-11] MEDS: Mometasone 200 MCG/Formoterol 5 MCG 120 PUFF INHALER INH SCH (18:45)
[2020-12-11] MEDS: Ipratropium Bromide 2.5 ml Neb NEB SCH (18:49)
[2020-12-11] MEDS: Aspirin Chewable 81 MG TAB PO SCH (23:06)
[2020-12-11] MEDS: Amlodipine 5 MG TAB PO SCH (23:06)
[2020-12-11] MEDS: Citalopram 20 MG TAB PO SCH (23:07)
[2020-12-12] MEDS: Ipratropium Bromide 2.5 ml Neb NEB SCH ×3 (00:59→23:06)
[2020-12-12] MEDS ORDERED: Acetaminophen 500 MG TAB PO PRN (03:15)
[2020-12-12] MEDS: Acetaminophen 325 MG TAB PO SCH (03:25)
[2020-12-12] MEDS ORDERED: Ibuprofen 200 MG TAB PO SCH (03:30)
[2020-12-12] MEDS: Simvastatin 10 MG TAB PO SCH ×2 (03:47→23:34)
[2020-12-12] MEDS: Acetaminophen 500 MG TAB PO SCH ×5 (04:10→22:11)
[2020-12-12 04:29] LABS: #Basophils 0.1 thou/uL (0.0-0.2); #Eosinphils 0.3 thou/uL (0.0-0.7); #Monocytes 0.7 thou/uL (0.11-0.59); #Neutrophils 9.3 thou/uL (1.40-6.50); %Basophils 0.6 % (0.0-1.0); %Eosinophils 2.2 % (0.0-10.0); %Lymphocytes 16.3 % (21.0-51.0); %Monocytes 5.2 % (0.0-10.0); %Neutrophils 75.7 % (42.0-75.0); Hemoglobin 8.6 g/dL (12.0-16.0); Mean Corpuscular HGB CONC 33.6 g/dL (32.0-36.0); Mean Corpuscular Hemoglobin 33.2 pg (27.0-31.0); Mean Corpuscular Volume 98.8 fL (78.0-98.0); Mean Platelet Volume 9.6 fL (7.4-10.4); Platelet Count 116 thou/uL (130-400); RBC Distribution Width 11.8 % (11.5-14.5); Red Blood Cell (RBC) Count 2.58 mill/uL (4.20-5.40); White Blood Cell (WBC) Count 12.3 thou/uL (4.8-10.8)
[2020-12-12] MEDS: Levothyroxine Sodium 125 MCG TAB PO SCH (06:24)
[2020-12-12 07:04] LABS: Anion Gap 10 mmol/L (10-20); BUN (Urea Nitrogen) 21 mg/dL (9.8-20.1); Calc. Creatinine Clearance 60 mL/min (70-130); Carbon Dioxide 28 mmol/L (23-31); Chloride 99 mmol/L (98-107); Glucose 125 mg/dL (83-110); Phosphorus 3.7 mg/dL (2.3-4.7); Potassium 4.6 mmol/L (3.5-5.1); Sodium 132 mmol/L (136-145)
[2020-12-12] MEDS: Mometasone 200 MCG/Formoterol 5 MCG 120 PUFF INHALER INH SCH ×2 (08:25→18:39)
[2020-12-12] MEDS: Cholecalciferol 1,000 UNITS (25 MCG) TAB PO SCH (08:46)
[2020-12-12] MEDS: Cyanocobalamin (Vitamin B-12) 1,000 MCG TAB PO SCH (08:46)
[2020-12-12] MEDS: Famotidine 20 MG TAB PO SCH ×2 (08:46→22:06)
[2020-12-12] MEDS: Losartan 25 MG TAB PO SCH (08:47)
[2020-12-12] MEDS: Gabapentin 100 MG CAP PO SCH (08:48)
[2020-12-12] MEDS: Enoxaparin Sodium 40 MG/0.4 ML SYRINGE SC SCH (08:49)
[2020-12-12] MEDS: Dicyclomine 10 MG CAP PO SCH (08:50)
[2020-12-12 13:33] LABS: Troponin I 0.168 ng/mL (< 0.028)
[2020-12-12] MEDS: Ibuprofen 200 MG TAB PO SCH ×2 (15:14→23:34)
[2020-12-12] MEDS: Amlodipine 5 MG TAB PO SCH (22:06)
[2020-12-12] MEDS: Aspirin Chewable 81 MG TAB PO SCH (22:07)
[2020-12-12] MEDS: Citalopram 20 MG TAB PO SCH (22:07)
[2020-12-13] MEDS: Acetaminophen 500 MG TAB PO SCH ×2 (04:29→11:11)
[2020-12-13] MEDS: Levothyroxine Sodium 125 MCG TAB PO SCH (06:03)
[2020-12-13] MEDS: Ibuprofen 200 MG TAB PO SCH (06:03)
[2020-12-13 06:54] LABS: #Eosinphils 0.5 thou/uL (0.0-0.7); #Lymphocytes 1.3 thou/uL (1.20-3.40); #Monocytes 0.6 thou/uL (0.11-0.59); #Neutrophils 7.8 thou/uL (1.40-6.50); %Basophils 0.4 % (0.0-1.0); %Eosinophils 4.7 % (0.0-10.0); %Lymphocytes 12.6 % (21.0-51.0); %Monocytes 6.2 % (0.0-10.0); %Neutrophils 76.1 % (42.0-75.0); Hemoglobin 7.8 g/dL (12.0-16.0); Mean Corpuscular HGB CONC 34.4 g/dL (32.0-36.0); Mean Corpuscular Hemoglobin 33.7 pg (27.0-31.0); Mean Platelet Volume 9.7 fL (7.4-10.4); Platelet Count 126 thou/uL (130-400); RBC Distribution Width 11.6 % (11.5-14.5); Red Blood Cell (RBC) Count 2.32 mill/uL (4.20-5.40); White Blood Cell (WBC) Count 10.2 thou/uL (4.8-10.8)
[2020-12-13] MEDS: Ipratropium Bromide 2.5 ml Neb NEB SCH ×3 (07:51→12:54)
[2020-12-13] MEDS: Mometasone 200 MCG/Formoterol 5 MCG 120 PUFF INHALER INH SCH (08:00)
[2020-12-13] MEDS: Cyanocobalamin (Vitamin B-12) 1,000 MCG TAB PO SCH (08:30)
[2020-12-13] MEDS: Cholecalciferol 1,000 UNITS (25 MCG) TAB PO SCH (08:30)
[2020-12-13] MEDS: Famotidine 20 MG TAB PO SCH (08:30)
[2020-12-13] MEDS: Losartan 25 MG TAB PO SCH (08:31)
[2020-12-13] MEDS: Enoxaparin Sodium 40 MG/0.4 ML SYRINGE SC SCH (08:37)
[2020-12-13] MEDS ORDERED: Ascorbic Acid 500 mg Chewable Tablet PO SCH (09:00)
[2020-12-13] MEDS ORDERED: Ferrous Sulfate 325 MG TAB PO SCH (09:00)
[2020-12-13] MEDS ORDERED: Ibuprofen 200 MG TAB PO PRN (09:15)
[2020-12-13 11:11] VITALS: BP 155/71; TEMP 97.8
[2020-12-13] MEDS: Dicyclomine 10 MG CAP PO SCH (11:12)
[2020-12-13] MEDS: Gabapentin 100 MG CAP PO SCH (11:12)
[2020-12-13] MEDS ORDERED: Aspirin 81 mg Enteric Coated Tablet PO SCH (21:00)
== END 2020-12-13 14:45 | DRG 480 ==
LOC: ERS 22:40 → SURG B 12-10 01:07 → IMCU/EMU 12-11 18:47 → SURG B 12-12 22:43
PROVIDERS: ADMIT Surgery; ATTEND Surgery
PROC: 0QS604Z Reposition Right Upper Femur with Internal Fixation Device, Open Approach (ICD-10-PCS; principal; 2020-12-10)
PROC: 5A09357 Assistance with Respiratory Ventilation, Less than 24 Consecutive Hours, Continuous Positive Airway Pressure (ICD-10-PCS; 2020-12-11)
DX: S72.141A Displaced intertrochanteric fracture of right femur, initial encounter for closed fracture (principal); J81.0 Acute pulmonary edema; W19.XXXA Unspecified fall, initial encounter; I25.10 Atherosclerotic heart disease of native coronary artery without angina pectoris; I35.0 Nonrheumatic aortic (valve) stenosis; J44.9 Chronic obstructive pulmonary disease, unspecified; I10 Essential (primary) hypertension; E03.9 Hypothyroidism, unspecified; G89.29 Other chronic pain; E78.5 Hyperlipidemia, unspecified; E78.00 Pure hypercholesterolemia, unspecified; F41.9 Anxiety disorder, unspecified; S00.03XA Contusion of scalp, initial encounter; Z96.652 Presence of left artificial knee joint; K21.9 Gastro-esophageal reflux disease without esophagitis; R73.03 Prediabetes; I73.9 Peripheral vascular disease, unspecified; E66.9 Obesity, unspecified; D64.9 Anemia, unspecified; R73.9 Hyperglycemia, unspecified; Z68.32 Body mass index [BMI] 32.0-32.9, adult; Y92.002 Bathroom of unspecified non-institutional (private) residence as the place of occurrence of the external cause; Z95.5 Presence of coronary angioplasty implant and graft; Z90.49 Acquired absence of other specified parts of digestive tract; Z85.828 Personal history of other malignant neoplasm of skin; Z85.118 Personal history of other malignant neoplasm of bronchus and lung; Z88.8 Allergy status to other drugs, medicaments and biological substances; Z88.1 Allergy status to other antibiotic agents
CPT/HCPCS: 36415; 36600; 70450; 71045; 72170; 76000; 80048; 80053; 80061; 81001; 82553; 82805; 83036; 83605; 83735; 83880; 84100; 84439; 84443; 84484; 85025; 93005; 93010; 93306; 94640; 94660; 96374; 96375; C1713; G0390; J1642; J1650; J1940; J2250; J2270; J2370; J2405; J2704; J3010; J3475; J7050; J7620; P9045; U0003; U0005